=== PATIENT | female | born 1955 ===

== ENCOUNTER 2024-12-20 09:17 | Outpatient (AMB) | payer MEDICARE, BC, SELFPAY ==
--- NOTE | 2024-12-20 09:20 | A.OFFVIS_ITS ---
Vital Signs 12/20/24 09:27 Height 5 ft 1 in Weight 156 lb 1.396 oz BMI 29.5 BP 134/74 Blood Pressure Location Rt radial Position Sitting Pulse 103 H Pulse Source Pulse Oximeter Intake Visit Reasons: T2DM Intake Note: New patient externally referred by PCP for T2DM management. Patient receives Dexcom G6 supplies through: [facility] Last Diabetic Eye exam: Within the year, Is seen yearly Last Podiatry Visit: Does not see a Podiatry Random Glucose: 257 mg/dl HgA1C: 10.4% 12/20/2024 Filter Pulp Washer Required: No Accompanied by: Self / Same As Patient Allergies levofloxacin (From Levaquin) Allergy (Unknown, Verified 12/20/24 09:32) Hives Penicillins Allergy (Unknown, Verified 12/20/24 09:32) Hives sulfamethoxazole (From Bactrim) Allergy (Unknown, Verified 12/20/24 09:32) Hives trimethoprim (From Bactrim) Allergy (Unknown, Verified 12/20/24 09:32) Hives vancomycin Allergy (Unknown, Verified 12/20/24 09:32) Hives aspirin Adverse Reaction (Unknown, Verified 12/20/24 09:32) Upset GI Medication List - Last Reconciled 12/20/24 by Nas Vance MD albuterol sulfate 90 mcg/actuation 2 puffs inhalation Q4H PRN amlodipine 5 mg PO DAILY atorvastatin 20 mg PO DAILY blood sugar diagnostic (Contour Next Test Strips) As directed blood-glucose sensor (Dexcom G6 Sensor device) As directed blood-glucose transmitter (Dexcom G6 Transmitter device) As directed esomeprazole magnesium 20 mg PO QAM insulin glargine (Lantus Solostar U-100 Insulin) 50 units subcut BEDTIME metformin ER 1,500 mg PO QAM metoprolol succinate ER 25 mg PO DAILY pen needle, diabetic (Holly 2nd Gen Pen Needle) As directed tirzepatide (Mounjaro) 5 mg subcut QWEEK valsartan 80 mg PO DAILY HPI Comments Details: 69 YO F who is seen in consultation for T2DM at the request of PCP. Initially diagnosed with T2DM in 2013 . Never saw endo before Was initially started on treatment with metformin . Current regimen Lantus 50 units . Metformin 1000 mg QD, Mounjaro 5 mg Qwkly recently started Per the Dexcom CGMS is active 95 % of time . data the patient's predicted A1C is 11% which is compared to the patients previous A1C [] dated []. Avg glucose is 320 . Variability of 50 The patient's blood sugars were in target 0% of the time, above target 100% of the time, and below target 0% of the time Pen shows persistent hyperglycemia throughout the day with increases post- breakfast Reports low sugars never. No Family history of T2DM but family hx unknown Has eyes checked yearly, last eye exam 10/2024 , denies retinopathy. Has neuropathy, not sees podiatry. Denies nephropathy, on EVI/ARB. . Has HLD, on statin. . Denies CAD. Not Had diabetes education. COUNT INCLUDES THE [facility] Medical History (Updated 12/20/24 @ 09:34 by Nas Vance MD) Type 2 diabetes mellitus Surgical History History of colonoscopy History of surgery Hx of bilateral mastectomy History of bilateral tubal ligation Family History Mother Heart disease Father No problems noted. Sister Cancer Social History Alcohol intake: never Patient Tobacco Use Status: Never used Tobacco Physical Exam Vital Signs: Last Vital Signs Pulse 103 H 12/20/24 09:27 BP 134/74 12/20/24 09:27 BMI result Body Mass Index 29.5 Absence of Cushingoid features. Absence of acromegalic features. Neck exam reveals nl size thyroid about 15 gms. No thyroid nodules palpable. No carotid bruits present. Lungs CTA. Heart S1 S2, Reg R/R. No M/R/ G. Skin exam reveals absence of vitiligo or acanthosis nigricans. Abdominal exam reveals Soft NT/ND with NA BS. No organomegaly present. Neck Other: . Extrem Other: Visual exam of foot performed. No ulcerations or open lesions. No onchomycosis, no callouses.Pulses 2 + distally Sensation intact to monofilament exam. Vibratory sensation sensed is intact with 128 Hz tuning fork Results AMB Hemoglobin A1c AMB Hemoglobin A1c 10.4 % Last Edit by CARLIE Simmons on 12/20/24 09:53 Results Reviewed Results Reviewed: Laboratory Last Values Glucose (Clinic) 257 mg/dL (60-115) H 12/20/24 09:42 Assessment & Plan Assessment & Plan (1) Type 2 diabetes mellitus: Code(s): E11.9 - Type 2 diabetes mellitus without complications Category: Medical Plan: 69-year-old female with a history of type 2 diabetes being treated metformin, Mounjaro and basal insulin with poor glycemic control and no known microvascular or macrovascular complication. The plan is to have the pt change Lantus to Toujeo U-300 60 units and increase Mounjaro to 7.5 mg Qwkly . Went over side effects of Mounjaro including but not limited to nausea, vomiting and rare risk of pancreatitis . We will have patient see health educator and chief controller. May need U-500 insulin in future We will check microalbumin to creatinine ratio. Went over with the patient correlation of poor glycemic control to development and progression of complications. Will also check anti-PERLA 65 Ab. Encourage patient to make appointment with Podiatry (her primary care referred her there) Orders: Orders Glutamic acid decarboxylase Ab Today E11.9 - Type 2 diabetes mellitus without complications AMB Hemoglobin A1c Today E11.9 - Type 2 diabetes mellitus without complications Microalbumin, Random (w Creat) Today E11.9 - Type 2 diabetes mellitus without complications Referrals Diabetes Education Referral E11.9 - Type 2 diabetes mellitus without complications Nutrition/Dietitian Referral E11.9 - Type 2 diabetes mellitus without complications Medications: New tirzepatide (Mounjaro) 7.5 mg (0.5 mL) subcut QWEEK 2 mL 4RF insulin glargine U-300 conc (Toujeo Max U-300 SoloStar) 60 units (0.2 mL) subcut DAILY 6 mL 4RF Coding Level of Care Code New Pt Level 5 (02067) Complex EM visit Add On G2211 Diagnoses Type 2 diabetes mellitus E11.9
[2024-12-20 09:27] VITALS: BP 134/74; PULSE 103; BMI 29.5
--- OUTSIDE RECORDS SUMMARY | 2024-12-20 09:45 | XMS_ITS | Continuity of Care Document ---
Author Organization [facility] Address [address] [facility] [address] [place] [address] Phone [phone] Social History Type Date Description Comments Sex Female Sex Unknown Medical Devices Description No Information Available Encounters Description No Information Available Assessments Description No Information Available Plan of Treatment No Information Available Functional Status Description No Information Available Mental Status Description No Information Available Referrals Description No Information Available
--- OUTSIDE RECORDS SUMMARY | 2024-12-20 09:45 | XMS_ITS ---
Author Name [facility] Organization Unknown Encounters Encounter Type Encounter Reason Primary Diagnosis Location Date Ambulatory [facility] 03/06/2024 Care Team Organization Name Specialty Phone Email Start Date End Da te [facility]2023 [facility] Melissa Galarza Primary Care 11/11/2022 12/26/2023 [facility] Termed, PROVIDER Primary Care 07/14/202212/07 [facility] Termed, PROVIDER Primary Care 03/16/2022
--- OUTSIDE RECORDS SUMMARY | 2024-12-20 09:45 | XMS_ITS | Clinical Summary ---
[facility] Organization [facility] Address [address] [place] [address] Care Team Providers Care Register Of Deeds Name Role Phone Marina Jesus MD Primary Care Provider [phone] Allergies Active Allergy Reactions Criticality Noted Date Comments Aspirin 11/17/2018 Levofloxacin 03/28/2017 Penicillins 03/28/2017 Procaine 11/17/2018 Vancomycin 03/28/2017 Medications Medication Sig Dispensed Refills Start Date End Date Status metFORMIN (GLUCOPHAGE) tablet 500 mg Take 500 mg by mouth 2 (two) times a day with meals. 2,000 mg daily 0 Active esomeprazole (NEXIUM) capsule 20 mg Take 20 mg by mouth every morning before breakfast. 0 Active metoprolol succinate (TOPROL-XL) 24 hr tablet 25 mg Take by mouth daily. 0 Ac tive enalapril (VASOTEC) 10 MG tablet Take 10 mg by mouth daily. 0 Active amLODIPine (NORVASC) tablet 5 mg Take 5 mg by mouth daily. 0 Active atorvastatin (LIPITOR) tablet 10 mg Take 10 mg by mouth every evening. 0 Active albuterol (PROVENTIL) (2.5 MG/3ML) 0.083% nebulizer solution Take 2.5 mg by nebulization every 6 (six) hours as needed for wheezing. 0 Active Dulaglutide (TRULICITY) 0.75 MG/0.5ML SOPN Inject 75 Units under the skin once a week. 0 Active insulin glargine (LANTUS) injection 100 units/mL Inject 45 Units under the skin every night at bedtime. 0 Active Active Problems Problem Noted Date Diagnosed Date Malignant neoplasm of overla pping sites of right breast in female, estrogen receptor positive 03/28/2017 Social History Tobacco Use Types Packs/Day Years Used Date Smoking Tobacco: Former Smokeless Tobacco: Never Alcohol Use Standard Drinks/Week Comments No 0 (1 standard drink = 0.6 oz pur e alcohol) Sex and Gender Information Value Date Recorded Sex Assigned at Not on file Gender Identity Not on file Sexual Orientation Not on file Job Start Date Occupation Industry Not on file Not on file Not on file Last Filed Vital Signs Vital Sign Reading Time Taken Comments Blood Pressure 135/68 11/30/2021 10:14 AM EDT Pulse 92 11/30/2021 10:14 AM EDT Temperature 36.3 C (97.3 F) 11/30/2021 10:14 AM EDT Respiratory Rate - - Oxygen Saturation 99% 11/30/2021 10:14 AM EDT Inhaled Oxygen Concentration - - Weight 69.9 kg (154 lb) 11/30/2021 10:14 AM EDT Height 154.9 cm (5' 1 ) 11/30/2021 10:14 AM EDT Body Mass Index 29.1 11/30/2021 10:14 AM EDT Plan of Treatment Health Maintenance Due Date Last Done Comments Hepatitis C Screening 1955 Depression Screening 1966 Preventative Health Evaluation 1972 Shingrix-Zoster Vaccine (1 o f 2) 1973 Colon Cancer Screening (Colonoscopy) 09/08/1999 Breast Cancer Screening (Mammogram) 2004 Pneumococcal Vaccine (2 of 2 - PCV) 10/17/2014 10/17/2013 DTap / Tdap / Td (2 - Td or Tdap) 08/15/2017 08/16/2007 Fall Risk Assessment 09/08/2019 Osteoporosis Screening (DEXA Scan) 09/08/2019 COVID-19 Vaccine (4 - 2023-2 5 season) 2024 03/29/2021, 09/03/2020, 08/13/2020 Influenza Vaccine (#1) 2025 RSV Adult > 60+ Yrs or (1 - 1-dose 75+ series) 2029 Hepatitis B Vaccines Aged Out No long er eligible based on patient's age to complete this topic RSV Ped < 20 months Aged Out No longe r eligible based on patient's age to complete this topic Care Teams Register Of Deeds Relationship Specialty Start Date End Date Marina Jesus MD PCP - General Internal Medicine 03/28/17
--- OUTSIDE RECORDS SUMMARY | 2024-12-20 09:45 | XMS_ITS | Patient Health Record ---
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 Name Role Phone Lyric Woodson Unavailable [phone] BARBARA BOWMAN Unavailable [phone] MARQUISE GODOY Unavailable [phone] Allergies Allergen (clinical drug ingredient) Drug/Non Drug Allergy documented on EMR Reaction Allergy Type Onset Date Status sulfamethoxazole / trimethoprim Bactrim Unknown Drug Allergy Active Levaquin Unknown Drug Allergy Active aspirin Aspirin Unknown Drug Allergy Active Penicillin Unknown Drug Allergy Active vancomycin Vancomycin Unknown Drug Allergy Activ e Results Component Value Reference Range Notes MAGNESIUM Reviewed date:12/23/2023 10:02:03 AM Interpretation: Performing Lab: Notes/Report: Note Original Ordering Provider: LYRIC VALDIVIA[employer], [place] [address] Signal Circuit Designer - Fatuma Treadwell MD MAGNESIUM 1.9 1.9-2.6 mg/dL Note Original Ordering Provider: LYRIC WOODSON PA-C [employer], a member of [address] [address] Signal Circuit Designer - Fatuma Treadwell MD TISSUE EXAM Reviewed date:07/27/2024 11:12:39 AM Interpretation: Performing Lab: Notes/Report: Final Diagnosis A. Large Intestine, Right/Ascending Colon, polyp x1: - Tubular adenoma. B. Large Intestine, Transverse Colon, polyp x1: - Tubular adenoma. Gross Description A. Large Intestine, Right/Ascending Colon, polyp x1: Labeled ascend colon polyp x 1 . Received in formalin, are six irregular soft to rubbery, cruz-pink to red tissue fragments, approximately ranging from 0.2 cm to 0.8 cm in greatest diameters, admixed in fecal/food debris, which are wrapped in paper and submitted in toto in one cassette, six pieces, multiple levels. B. Large Intestine, Transverse Colon, polyp x1: Labeled trans colon polyp x 1 . Received in formalin, are five irregular soft to rubbery, cruz-pink tissue fragments, approximately ranging from 0.4 cm to 1.0 cm in greatest diameters, admixed in fecal/food debris, which are wrapped in paper and submitted in toto in one cassette, five pieces, multiple levels. dvb/DG Disclaimer Unless otherwise specified, all tissue is 10% NB formalin fixed and paraffin embedded. MICROALBUMIN CREATININE URIN E RATIO Reviewed date:09/24/2024 12:12:15 PM Interpretation: Performing Lab: Notes/Report: Creatinine, Urine 234.0 Microalb, Ur 69.1 0.0-29.0 mg/L Microalb/Creat Ratio 30 <30 mg/g creat COMPREHENSIVE METABOLIC PANE L Reviewed date:09/24/2024 12:16:08 PM Interpretation: Performing Lab: Notes/Report: Sodium 136 133-145 mmol/L Potassium 4.4 3.5-5.5 mmol/L Chloride 105 96-110 mmol/L CO2 24 21-32 mmol/L Anion Gap 7 3-11 Glucose 208 70-100 mg/dL BUN 9 5-25 mg/dL Creatinine 0.88 0.50-1.10 mg/dL eGFR 71 >=60 mL/min/1.73m2 Calculati on based on the Chronic Kidney Disease Epidemiology Collaboration (CKD-EPI) equation refit without adjustment for race. BUN/Creatinine Ratio 10.2 Calcium 9.9 8.5-10.5 mg/dL AST (SGOT) 24 10-42 unit/L ALT (SGPT) 39 10-60 unit/L Alkaline Phosphatase 113 42-121 unit/L Total Protein 7.1 6.0-8.0 g/dL Albumin 3.8 3.2-5.0 g/dL Total Bilirubin 1.0 0.0-1.4 mg/dL MAGNESIUM Reviewed date:09/24/2024 12:16:24 PM Interpretation: Performing Lab: Notes/Report: Magnesium 1.8 1.9-2.6 mg/dL THYROID STIMULATING HORMONE Reviewed date:09/24/2024 12:11:23 PM Interpretation: Performing Lab: Notes/Report: TSH 1.94 0.40-4.00 mcIU/mL LIPID PANEL WITH REFLEX TO D IRECT LDL Reviewed date:09/24/2024 12:12:36 PM Interpretation: Performing Lab: Notes/Report: Cholesterol 131 0-200 mg/dL Triglycerides 181 0-150 mg/dL HDL 46 >=40 mg/dL LDL Calculated 49 0-100 mg/dL VLDL Cholesterol Pan 36.2 Non HDL Chol. (LDL+VLDL) 85 <145 mg/dL Chol/HDL Ratio 2.8 0.0-4.4 CBC WITH AUTO DIFFERENTIAL Reviewed date:09/24/2024 12:14:21 PM Interpretation: Performing Lab: Notes/Report: WBC 7.3 4.8-10.8 K/mcL RBC 5.20 3.80-4.80 M/mcL Hemoglobin 12.1 11.5-16.0 g/dL Hematocrit 39.6 35.0-47.0 % MCV 76.6 79.0-98.0 FL MCH 23.4 27.0-32.0 pcg MCHC 30.6 32.0-37.0 g/dL RDW 16.7 11.0-15.0 % Platelets 295 130-400 K/mcL MPV 9.9 7.0-11.0 FL NRBC 0.0 <1.0 % NRBC Absolute 0.00 <0.10 K/mcL Neutrophils Relative 58.8 Lymphocytes Relative 33.9 Monocytes Relative 5.7 Eosinophils Relative 0.7 Basophils Relative 0.5 Immature Granulocytes Relative 0.4 Neutrophils Absolute 4.29 1.50-7.00 K/mcL Lymphocytes Absolute 2.48 1.00-5.00 K/mcL Monocytes Absolute 0.42 0.20-1.00 K/mcL Eosinophils Absolute 0.05 0.00-0.50 K/mcL Basophils Absolute 0.04 0.00-0.20 K/mcL Immature Granulocytes Absolute 0.03 0.00-0.03 K/mcL HEMOGLOBIN A1C Reviewed date:09/24/2024 12:15:36 PM Interpretation: Performing Lab: Notes/Report: Hemoglobin A1C 10.2 <6.5 % Mean Bld Glu Estim. 246 Reason For Referral Reason [facility]; [facility] ontrolled diabetes Diagnosis 1 Uncontrolled type 2 diabetes mellitus with hyperglycemia (E11.65) Referral Organization [facility] [address] Referring Provider First Name Lyric Referring Provider Last Name Svrcek Referring Provider Speciality Internal edicine Referred Provider Specialty Podiatry General Notes [address] [facility] [address] [place], (p) [phone], (f) [phone] Clinical Notes Marlys Mcfarlane 02:46:33 PM > referral faxed with attachments Referral Priority Routine Reason [facility]; uncontr olled diabetes Diagnosis 1 Uncontrolled type 2 diabetes mellitus with hyperglycemia (E11.65) Referral Organization [facility] [address] Referring Provider First Name Lyric [facility] Referred Provider Specialty Nutrition General Notes (p) [phone], (f ) [phone] Clinical Notes Laverne Hamlin 10/08 10:14:51 AM >, insurance out of network will refer to alternative place Referral Priority Routine Reason uncontrolled diabete s Diagnosis 1 Type 2 diabetes clint itus with unspecified complications (E11.8) Referral Organization [facility] [address] Referring Provider First Name Lyric Referring Provider Last Name Svrcek Ref[facility] Referred Provider Specialty Unknown General Notes [facility], [address] [place] [address], [address], [place] [address], phone- [phone], fax- [phone] Clinical Notes Laverne Hamlin 10/08 10:31:45 AM >, referral faxed, Ryne Gonzalez 10/12/2024 02:53:48 PM > refaxed to [phone] Redena 10/23/2024 03:40:30 PM > Scheduled for 11/08 at [address] Vance. Pt aware Referral Priority Routine Medications Medication SIG (Take, Route, Frequency, Duration) Notes Start Date End Date Status Mounjaro 5 MG/0.5ML 0.5 ML Subcutaneous once weekly; Duration: 30 days replaces ozepmic Active Multi Complete - as directed Orally Active Valsartan 80 MG TAKE 1 TABLET BY EVERY DAY FOR 30 DAYS; Duration: 90 days Active metFORMIN HCl ER 500 MG TAKE 3 TABLETS B Y MOUTH EVERY DAY WITH BREAKFAST 90; Duration: 90 Active Clotrimazole-Betamethason e 1-0.05 % APPLY DAILY TO SKIN TO AFFECTED AREA TWICE A DAY FOR 7 DAYS; Duration: 30 Active amLODIPine Besylate 5 MG TAKE 1 TABLET B Y MOUTH EVERY DAY; Duration: 90 Active Metoprolol Succinate ER 25 MG TAKE 1 TABLET BY MOUTH EVERY DAY FOR 30 DAYS; Duration: 90 Active Dexcom G6 Transmitter - as directed; Dur ation: 90 days 03/22/2024 Active Esomeprazole Magnesium 20 MG 1 capsule 1/2 to 1 hour before morning meal Orally Once a day; Duration: 90 days 03/22/2024 Active BD Pen Needle Holly 2nd Gen 32G X 4 MM USE TO INJECT INSULIN AT BEDTIME; Duration: 90 Active Albuterol Sulfate HFA 108 (90 Base) MCG/ACT 2 puffs Inhalation every 4 hrs; Duration: 30 days As needed PRN Active Atorvastatin Calcium 20 MG TAKE 1 TABLET BY MOUTH EVERY DAY FOR 30 DAYS; Duration: 90 days Active Lantus SoloStar 100 UNIT/ML 50 UNITS SUBCUTANEOUS BEDTIME 90 DAYS Subcutaneous once a day; Duration: 90 days Active Lancets - use 3 times a day; Duration: 90 days 09/22/2023 Active Contour Next Test - TEST FASTING BLOOD S UGAR 1 TIME DAILY; Duration: 90 Active Nystatin 048598 UNIT/GM 1 application Ex ternally Twice a day; Duration: 30 days PRN 06/30/2023 Active Dexcom G6 Sensor - one sensor every 10 days subcutaneously for DX E11.8; Duration: 90 days 05/18/2023 Active Problems Problem Type SNOMED Code ICD Code Onset Dates Problem Status W/U Status Risk Notes Problem Disorder due to type 2 diabetes mellitus (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) Type 2 diabetes mellitus with unspecified complications (E11.8) Active confirmed Problem Iron deficiency (55696223) Iron deficiency (E61.1) Active confirmed Problem Hyperlipidemia (47919083) Hyperlipidemia, unspecified (E78.5) Active confirmed Problem Hypomagnesemia (575975743) Hypomagnesemia (E83.42) Active confirmed Problem Essential hypertension (36114820) Essential (primary) hypertension (I10) Active confirmed Problem Postoperative hypertension (0099682189008) Postprocedural hypertension (I97.3) Active confirmed Problem Diarrhea (27016077) Diarrhea, unspecified (R19.7) Active confirmed Problem Adult health examination (173423635) Encounter for general adult medical examination without abnormal findings (Z00.00) Active confirmed Problem Hyperlipidaemia (30673018) Hyperlipidemia, unspecified hyperlipidemia type (E78.5) Active confirmed Problem Gastroesophageal reflux disease without esophagitis (405197716) Gastroesophageal reflux disease without esophagitis (K21.9) Active confirmed Problem Type II diabetes mellitus without complication (507214581) Type 2 diabetes mellitus without complication, without long-term current use of insulin (E11.9) Active confirmed Problem Obesity (477283447) Obesity (BMI 35.0-39.9 without comorbidity) (E66.9) Active confirmed Problem Gastroesophageal reflux disease with esophagitis (disorder) (037930036) Gastroesophageal reflux disease with esophagitis without hemorrhage (K21.00) Active confirmed Problem Abdominal pain (81919258) Abdominal pain of unknown etiology (R10.9) Active confirmed Problem Hyperglycemia due to type 2 diabetes mellitus (605266774451929) Uncontrolled type 2 diabetes mellitus with hyperglycemia (E11.65) Active confirmed Problem Hyperlipidemia (23691482) Hyperlipidemia, mild (E78.5) Active confirmed Problem Endocrine/metabolic screening (155672721) Screening for endocrine disorder (Z13.29) Active confirmed Problem Type II diabetes mellitus without complication (027149561) Type 2 diabetes mellitus with hemoglobin A1c goal of 7.0%-8.0% (E11.9) Active confirmed Problem Elevated fasting lipid profile (194290546582) Elevated lipids (E78.5) Active confirmed Problem Diabetes mellitus type 2 in nonobese (625052014) Diabetes mellitus type 2 in nonobese (E11.9) Active confirmed Problem Cramp in lower limb (943129840) Leg cramp (R25.2) Active confirmed Vital Signs Heart Rate 81 /min 11/20/2024 Oximetry 98 % 11/20/2024 Blood pressure diastolic 78 mm Hg 11/20/2024 Height 61 in 11/20/2024 Blood pressure systolic 138 mm Hg 11/20/2024 Weight 156.3 lbs 11/20/2024 BMI 29.53 kg/m2 11/20/2024 Encounters Encounter Location Date Provider Diagnosis [facility] [address] [place] [id number] 02/21/2024 Lyric Svrcek Type 2 diabetes clint itus with unspecified complications E11.8 ; Essential (primary) hypertension I10 and Chronic diarrhea K52.9 [facility] [address] 03/22/2024 Lyric Svrcek Type 2 diabetes clint itus with unspecified complications E11.8 ; Essential (primary) hypertension I10 ; Chronic diarrhea K52.9 and Gastroesophageal reflux disease without esophagitis K21.9 [facility] [address] [facility] [address] [place], [place] 05/07/2024 MARQUISE GODOY Acute cough R05.1 ; Essential (primary) hypertension I10 ; Type 2 diabetes mellitus with unspecified complications E11.8 ; Hyperlipidemia, unspecified hyperlipidemia type E78.5 ; Gastroesophageal reflux disease with esophagitis without hemorrhage K21.00 and Iron deficiency E61.1 [facility] [address] 05/23/2024 Lyric Svrcek Respiratory syncytia l virus (RSV) as cause of acute bronchitis J20.5 ; Pneumonia due to infectious organism, unspecified laterality, unspecified part of lung J18.9 ; Type 2 diabetes mellitus with unspecified complications E11.8 ; Skin rash R21 and Essential (primary) hypertension I10 [facility] [address] 07/31/2024 Lyric Svrcek Type 2 diabetes clint itus with unspecified complications E11.8 ; Essential (primary) hypertension I10 ; Hyperlipidemia, unspecified hyperlipidemia type E78.5 and Muscle cramps R25.2 [facility] [address] 10/02/2024 Lyric Svrcek Type 2 diabetes clint itus with unspecified complications E11.8 ; Essential (primary) hypertension I10 ; Hyperlipidemia, unspecified hyperlipidemia type E78.5 and Muscle cramps R25.[address] [facility] [address] 11/07/2024 Lyric Svrcek Cough R05.9 ; Acute bronchitis, unspecified organism J20.9 and Essential (primary) hypertension I10 [facility] [address] 11/20/2024 Lyric Svrcek Type 2 diabetes clint itus with unspecified complications E11.8 ; Essential (primary) hypertension I10 ; Hyperlipidemia, unspecified hyperlipidemia type E78.5 and Subacute cough R05.[address] [facility] [address] [place] [address] 04/12/2024 Lyric Svrcek [facility] [address] [place], [place] 05/07/2024 TALAL BOWMAN [facility] [address] [place], [place] 06/04/2024 Lyric Svrcek [facility] [address] [place], [place] 06/04/2024 Lyric Svrcek [facility] [address] [place] [address] 07/19/2024 TALAL BOWMAN [facility] [address] [place], [place] 07/31/2024 TALAL BOWMAN Screening for endocr ine disorder Z13.29 ; Elevated lipids E78.5 ; Diabetes mellitus type 2 in nonobese E11.9 and Leg cramp R25.[address] [facility] [address] [place] [address] 09/04/2024 Lyric Svrcek [facility] [address] [facility] [address] [place], [place] 10/02/2024 Lyric Svrcek [facility] [address] [place] [address] 10/08/2024 Lyric Svrcek [facility] [address] [place], [place] 11/07/2024 Lyric Svrcek [facility] [address] 11/07/2024 Lyric Svrcek Assessments Encounter Date Diagnosis (ICD Code) Assessment Notes Treatment Notes Treatment Clinical Notes Section Notes 02/21/2024 Type 2 diabetes mellitus with unspecified complications (ICD-10 - E11.8) #Type 2 diabetes. Not well controlled. A1C 9.6. She has been on Ozempic, but never increased her dose after last visit as discussed. Will increase to 0.5 mg- reviewed pen dosing instruction. F/u 3-4 weeks. PLan to increase to 1 mg at that time. Discussed dietary modifications and need for regular exercise. #Hypertension. Well controlled on current regimen. #Chronic Diarrhea. Ongoing issue. Saw GI in November. Awaiting colonoscopy- advised to call today to follow up on this. Case discussed with collaborating physician Robert Bowman who reviewed the assessment and plan. Chart, medications, labs, vital signs reviewed. Dictation was accomplished with the use of [employer] voice recognition software, prone to medical misidentifications and grammatical errors. This is unintentional and the practitioner does try to identify and correct these, but some could still be present. Please do not hesitate to contact practitioner for clarification. All questions answered to patients satisfaction. Patient verbalized understanding of diagnosis and treatments explained. To call sooner prior to next visit it any questions/concerns arise. 02/21/2024 Essential (primary) hypertension (ICD-10 - I10) #Type 2 diabetes. Not well controlled. A1C 9.6. She has been on Ozempic, but never increased her dose after last visit as discussed. Will increase to 0.5 mg- reviewed pen dosing instruction. F/u 3-4 weeks. PLan to increase to 1 mg at that time. Discussed dietary modifications and need for regular exercise. #Hypertension. Well controlled on current regimen. #Chronic Diarrhea. Ongoing issue. Saw GI in November. Awaiting colonoscopy- advised to call today to follow up on this. Case discussed with collaborating physician Robert Bowman who reviewed the assessment and plan. Chart, medications, labs, vital signs reviewed. Dictation was accomplished with the use of [employer] voice recognition software, prone to medical misidentifications and grammatical errors. This is unintentional and the practitioner does try to identify and correct these, but some could still be present. Please do not hesitate to contact practitioner for clarification. All questions answered to patients satisfaction. Patient verbalized understanding of diagnosis and treatments explained. To call sooner prior to next visit it any questions/concerns arise. 03/22/2024 Type 2 diabetes mellitus with unspecified complications (ICD-10 - E11.8) #Type 2 diabetes. Not well controlled. A1C 9.4, down from 9.6 She has been on Ozempic 0.5 mg since last visit, will increase to 1 mg. New Rx sent. COntinue to work on healthy diet and regular exercise. F/u 2 months with repeat A1C. #Hypertension. Well controlled on current regimen. #Chronic Diarrhea. Ongoing issue. Saw GI in November. Colonoscopy scheduled in July. #GERD- refilled esomeprazole. Case discussed with collaborating physician Robert Bowman who reviewed the assessment and plan. Chart, medications, labs, vital signs reviewed. Dictation was accomplished with the use of [employer] voice recognition software, prone to medical misidentifications and grammatical errors. This is unintentional and the practitioner does try to identify and correct these, but some could still be present. Please do not hesitate to contact practitioner for clarification. All questions answered to patients satisfaction. Patient verbalized understanding of diagnosis and treatments explained. To call sooner prior to next visit it any questions/concerns arise. 03/22/2024 Essential (primary) hypertension (ICD-10 - I10) #Type 2 diabetes. Not well controlled. A1C 9.4, down from 9.6 She has been on Ozempic 0.5 mg since last visit, will increase to 1 mg. New Rx sent. COntinue to work on healthy diet and regular exercise. F/u 2 months with repeat A1C. #Hypertension. Well controlled on current regimen. #Chronic Diarrhea. Ongoing issue. Saw GI in November. Colonoscopy scheduled in July. #GERD- refilled esomeprazole. Case discussed with collaborating physician Robert Bowman who reviewed the assessment and plan. Chart, medications, labs, vital signs reviewed. Dictation was accomplished with the use of [employer] voice recognition software, prone to medical misidentifications and grammatical errors. This is unintentional and the practitioner does try to identify and correct these, but some could still be present. Please do not hesitate to contact practitioner for clarification. All questions answered to patients satisfaction. Patient verbalized understanding of diagnosis and treatments explained. To call sooner prior to next visit it any questions/concerns arise. 05/07/2024 Essential (primary) hypertension (ICD-10 - I10) Alexandria is a 68-year-old female with history of type 2 diabetes, hyperlipidemia, hypertension, and obesity who presents to the office today for urgent care visit for upper respiratory symptoms beginning on Tuesday including sore throat, hoarse voice, fever, and productive cough. Has been using equj-qsj-vvkyrbi Robitussin and Mucinex with some relief. Reports fever on Tuesday of 100 degrees, then 99.4 degree(s) F, well-controlled with [id number] Tylenol. Has been able to tolerate p.o. intake. Several sick contacts including her and 2 grandchildren. On physical exam patient is well-appearing and in no acute distress. Blood pressure 132/78, heart rate tachycardic 118, oxygen saturation 99% on room air. Lungs are clear to auscultation bilaterally without stridor, rales, rhonchi, or wheezing. Regular rate and rhythm appreciated with normal S1 and S2 without murmurs, rubs, or gallops. 2+ and equal radial pulses bilaterally. There is + lymphadenopathy appreciated of the bilateral submandibular lymph nodes. Oropharynx is not erythematous and nonedematous. Given clinical presentation likely suspect viral syndrome. Less likely to be bacterial given symptom duration. Can consider antibiotics if symptoms persist and do not improve. Viral swab obtained in office and is negative for COVID, negative for flu, positive for RSV. Patient made aware of these results. At this time we will treat symptomatically with guaifenesin extended release 600 mg to be taken every 12 hours as needed for cough. Advised this medication is extra strength compared to skyi-ogw-jbrnpyl guaifenesin in Mucinex. Also discussed supportive measures for further management including adequate rest, increasing hydration, and ensuring good nutrition. Patient understanding. Discussed red flag signs requiring emergency department valuation including intractable fever, chest pain, difficulty breathing, intractable vomiting or diarrhea, inability to tolerate p.o. intake, dizziness, or weakness. Patient demonstrates understanding. All patient questions answered at this time. # Hypertension: Blood pressure stable today 132/78. Continue amlodipine 5 mg once daily. Continue valsartan 80 mg once daily. Continue metoprolol succinate 25 mg once daily. Will continue to monitor. # Type 2 diabetes: Poor control. Per chart review hemoglobin A1c 9.4%, down from 9.6%. Continue Ozempic 1 mg once weekly subcutaneous injection. Continue metformin 500 mg 3 tablets once daily in the morning with food. Continue Lantus 50 units subcutaneous injection once daily at nighttime. Discussed importance of diet and lifestyle to lower hemoglobin A1c and prevent other comorbidities. Patient has follow-up scheduled 05/23/2024. # GERD: Continue esomeprazole 20 mg once daily 30 to 60 minutes for morning meal. Will continue to monitor. # Microcytic anemia: Last CBC obtained 11/22/2023 with significant values including RBC 5.2, MCV 74.9, MCH 23.2, MCHC 31.0, and RDW 17.1. Continue iron 27 mg 3 times weekly. Will continue to monitor with repeat blood work. # Hyperlipidemia: Continue atorvastatin 20 mg once daily. Will continue to monitor. All questions have been answered to patient's satisfaction. Patient verbalized understanding of diagnosis and treatments explained. Advised to call sooner prior to next visit it any questions/concerns arise. Case discussed with collaborating physician Augusto Bowman who reviewed the assessment and plan. Chart, medications, labs, vital signs reviewed. Dictation was accomplished with the use of [employer] voice recognition software, which is prone to medical misidentifications and grammatical errors. This are unintentional and the practitioner does try to identify and correct these, but some could still be present. Please do not hesitate to contact practitioner for clarification. 05/23/2024 Pneumonia due to infectious organism, unspecified laterality, unspecified part of lung (ICD-10 - J18.9) #Pneumonia. Rhonchi to left lower lobe on exam. Concern for early pneumonia with persistent symptoms after recent diagnosis of RSV. Will treat with azithromycin. Renewed albuterol inhaler to use as needed push fluids and rest. Discussed signs and symptoms to monitor for if no improvement in 1 week would suggest imaging. She does have multiple medication allergies. #RSV. She was here 2 weeks ago and tested positive for RSV. Symptoms are persisting. #Type 2 diabetes. A1c 9.6 in the office today. Not well-controlled. Will increase Ozempic from 1 mg to 2 mg. Advised to monitor blood sugars closely. Work on healthy diet and regular exercise when she is feeling better. Follow-up in 2 months with repeat A1c. #Rash. Small dry excoriated patch to top of gluteal fold. Will trial combo clotrimazole betamethasone sparingly for 1 week. Follow-up if no improvement or with any new or worsening symptoms. #Hypertension. Well controlled on current regimen. Case discussed with collaborating physician Robert Bowman who reviewed the assessment and plan. Chart, medications, labs, vital signs reviewed. Dictation was accomplished with the use of [employer] voice recognition software, prone to medical misidentifications and grammatical errors. This is unintentional and the practitioner does try to identify and correct these, but some could still be present. Please do not hesitate to contact practitioner for clarification. All questions answered to patients satisfaction. Patient verbalized understanding of diagnosis and treatments explained. To call sooner prior to next visit it any questions/concerns arise. 05/23/2024 Respiratory syncytial virus (RSV) as cause of acute bronchitis (ICD-10 - J20.5) #Pneumonia. Rhonchi to left lower lobe on exam. Concern for early pneumonia with persistent symptoms after recent diagnosis of RSV. Will treat with azithromycin. Renewed albuterol inhaler to use as needed push fluids and rest. Discussed signs and symptoms to monitor for if no improvement in 1 week would suggest imaging. She does have multiple medication allergies. #RSV. She was here 2 weeks ago and tested positive for RSV. Symptoms are persisting. #Type 2 diabetes. A1c 9.6 in the office today. Not well-controlled. Will increase Ozempic from 1 mg to 2 mg. Advised to monitor blood sugars closely. Work on healthy diet and regular exercise when she is feeling better. Follow-up in 2 months with repeat A1c. #Rash. Small dry excoriated patch to top of gluteal fold. Will trial combo clotrimazole betamethasone sparingly for 1 week. Follow-up if no improvement or with any new or worsening symptoms. #Hypertension. Well controlled on current regimen. Case discussed with collaborating physician Robert Bowman who reviewed the assessment and plan. Chart, medications, labs, vital signs reviewed. Dictation was accomplished with the use of [employer] voice recognition software, prone to medical misidentifications and grammatical errors. This is unintentional and the practitioner does try to identify and correct these, but some could still be present. Please do not hesitate to contact practitioner for clarification. All questions answered to patients satisfaction. Patient verbalized understanding of diagnosis and treatments explained. To call sooner prior to next visit it any questions/concerns arise. 07/31/2024 Type 2 diabetes mellitus with unspecified complications (ICD-10 - E11.8) #Type 2 diabetes. Poorly controlled. A1c 9.9 in the office today. She did not tolerate 3 pills of metformin due to GI side effects. Currently on 500 mg twice daily as well as Ozempic 2 mg weekly and Lantus 50 units at bedtime. Blood sugars remain in the 300s. Will transition to Mounjaro and discontinue ozempic. Discussed risk benefits adverse effects of medication in detail with patient. Demonstrated proper use of pen autoinjector. Will need to monitor blood sugar closely and cut back on insulin dosing at bedtime. Depending on tolerance and blood sugar control may also be able to decrease metformin in the future. Follow-up in 6 weeks for repeat A1c. Follow-up sooner with any concerns. #Hypertension blood pressure elevated in the office today. Reports compliance with medications. On amlodipine, valsartan and metoprolol. Consider increasing meds at follow up if BP remains elevated. Discussed importance of healthy diet and regular exercise. #Hyperlipidemia. Due for updated labs. Follow-up pending results. #Muscle cramps. Lower extremities. Discussed importance of hydration and regular stretching. Will check labs follow-up pending results. Case discussed with collaborating physician Robert Bowman who reviewed the assessment and plan. Chart, medications, labs, vital signs reviewed. Dictation was accomplished with the use of [employer] voice recognition software, prone to medical misidentifications and grammatical errors. This is unintentional and the practitioner does try to identify and correct these, but some could still be present. Please do not hesitate to contact practitioner for clarification. All questions answered to patients satisfaction. Patient verbalized understanding of diagnosis and treatments explained. To call sooner prior to next visit it any questions/concerns arise. 07/31/2024 Essential (primary) hypertension (ICD-10 - I10) #Type 2 diabetes. Poorly controlled. A1c 9.9 in the office today. She did not tolerate 3 pills of metformin due to GI side effects. Currently on 500 mg twice daily as well as Ozempic 2 mg weekly and Lantus 50 units at bedtime. Blood sugars remain in the 300s. Will transition to Mounjaro and discontinue ozempic. Discussed risk benefits adverse effects of medication in detail with patient. Demonstrated proper use of pen autoinjector. Will need to monitor blood sugar closely and cut back on insulin dosing at bedtime. Depending on tolerance and blood sugar control may also be able to decrease metformin in the future. Follow-up in 6 weeks for repeat A1c. Follow-up sooner with any concerns. #Hypertension blood pressure elevated in the office today. Reports compliance with medications. On amlodipine, valsartan and metoprolol. Consider increasing meds at follow up if BP remains elevated. Discussed importance of healthy diet and regular exercise. #Hyperlipidemia. Due for updated labs. Follow-up pending results. #Muscle cramps. Lower extremities. Discussed importance of hydration and regular stretching. Will check labs follow-up pending results. Case discussed with collaborating physician Robert Bowman who reviewed the assessment and plan. Chart, medications, labs, vital signs reviewed. Dictation was accomplished with the use of [employer] voice recognition software, prone to medical misidentifications and grammatical errors. This is unintentional and the practitioner does try to identify and correct these, but some could still be present. Please do not hesitate to contact practitioner for clarification. All questions answered to patients satisfaction. Patient verbalized understanding of diagnosis and treatments explained. To call sooner prior to next visit it any questions/concerns arise. 07/31/2024 Screening for endocrine disorder (ICD-10 - Z13.29) 10/02/2024 Type 2 diabetes mellitus with unspecified complications (ICD-10 - E11.8) #Type 2 diabetes. Poorly controlled. A1c 10.2 on recent labs. She never got the Mounjaro and stayed on Ozempic. Discussed importance of notifying hte office if she is having trouble getting her medication at the pharmacy. Will change to Mounjaro 5 mg today- to take on Tuesday (when next ozempic dose is due). Conitnue Metformin 1500 mg daily and lantus 50 units at bedtime. Monitor BG closely. Will adjust other meds once BG comes down. Discussed dietary modifications in detail. 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 Follow-up in 6 weeks for repeat A1c. Follow-up sooner with any concerns. #Hypertension. blood pressure borderline in the office today. Reports compliance with medications. On amlodipine, valsartan and metoprolol. Consider increasing meds at follow up if BP remains elevated. Discussed importance of healthy diet and regular exercise. #Hyperlipidemia. Labs reviewed with patient. Cut back on carbs and sugar in diet. #Muscle cramps. Lower extremities. Discussed importance of hydration and regular stretching. Magnesium slightly low. Start magnesium supplement at bedtime. Case discussed with collaborating physician Robert Bowman who reviewed the assessment and plan. Chart, medications, labs, vital signs reviewed. Dictation was accomplished with the use of [employer] voice recognition software, prone to medical misidentifications and grammatical errors. This is unintentional and the practitioner does try to identify and correct these, but some could still be present. Please do not hesitate to contact practitioner for clarification. All questions answered to patients satisfaction. Patient verbalized understanding of diagnosis and treatments explained. To call sooner prior to next visit it any questions/concerns arise. 10/02/2024 Essential (primary) hypertension (ICD-10 - I10) #Type 2 diabetes. Poorly controlled. A1c 10.2 on recent labs. She never got the Mounjaro and stayed on Ozempic. Discussed importance of notifying hte office if she is having trouble getting her medication at the pharmacy. Will change to Mounjaro 5 mg today- to take on Tuesday (when next ozempic dose is due). Conitnue Metformin 1500 mg daily and lantus 50 units at bedtime. Monitor BG closely. Will adjust other meds once BG comes down. Discussed dietary modifications in detail. 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 Follow-up in 6 weeks for repeat A1c. Follow-up sooner with any concerns. #Hypertension. blood pressure borderline in the office today. Reports compliance with medications. On amlodipine, valsartan and metoprolol. Consider increasing meds at follow up if BP remains elevated. Discussed importance of healthy diet and regular exercise. #Hyperlipidemia. Labs reviewed with patient. Cut back on carbs and sugar in diet. #Muscle cramps. Lower extremities. Discussed importance of hydration and regular stretching. Magnesium slightly low. Start magnesium supplement at bedtime. Case discussed with collaborating physician Robert Bowman who reviewed the assessment and plan. Chart, medications, labs, vital signs reviewed. Dictation was accomplished with the use of [employer] voice recognition software, prone to medical misidentifications and grammatical errors. This is unintentional and the practitioner does try to identify and correct these, but some could still be present. Please do not hesitate to contact practitioner for clarification. All questions answered to patients satisfaction. Patient verbalized understanding of diagnosis and treatments explained. To call sooner prior to next visit it any questions/concerns arise. 05/07/2024 Acute cough (ICD-10 - R05.1) Alexandria is a 68-year-old female with history of type 2 diabetes, hyperlipidemia, hypertension, and obesity who presents to the office today for urgent care visit for upper respiratory symptoms beginning on Tuesday including sore throat, hoarse voice, fever, and productive cough. Has been using [id number] Robitussin and Mucinex with some relief. Reports fever on Tuesday of 100 degrees, then 99.4 degree(s) F, well-controlled with [id number] Tylenol. Has been able to tolerate p.o. intake. Several sick contacts including her and 2 grandchildren. On physical exam patient is well-appearing and in no acute distress. Blood pressure 132/78, heart rate tachycardic 118, oxygen saturation 99% on room air. Lungs are clear to auscultation bilaterally without stridor, rales, rhonchi, or wheezing. Regular rate and rhythm appreciated with normal S1 and S2 without murmurs, rubs, or gallops. 2+ and equal radial pulses bilaterally. There is + lymphadenopathy appreciated of the bilateral submandibular lymph nodes. Oropharynx is not erythematous and nonedematous. Given clinical presentation likely suspect viral syndrome. Less likely to be bacterial given symptom duration. Can consider antibiotics if symptoms persist and do not improve. Viral swab obtained in office and is negative for COVID, negative for flu, positive for RSV. Patient made aware of these results. At this time we will treat symptomatically with guaifenesin extended release 600 mg to be taken every 12 hours as needed for cough. Advised this medication is extra strength compared to desy-eed-ibufdae guaifenesin in Mucinex. Also discussed supportive measures for further management including adequate rest, increasing hydration, and ensuring good nutrition. Patient understanding. Discussed red flag signs requiring emergency department valuation including intractable fever, chest pain, difficulty breathing, intractable vomiting or diarrhea, inability to tolerate p.o. intake, dizziness, or weakness. Patient demonstrates understanding. All patient questions answered at this time. # Hypertension: Blood pressure stable today 132/78. Continue amlodipine 5 mg once daily. Continue valsartan 80 mg once daily. Continue metoprolol succinate 25 mg once daily. Will continue to monitor. # Type 2 diabetes: Poor control. Per chart review hemoglobin A1c 9.4%, down from 9.6%. Continue Ozempic 1 mg once weekly subcutaneous injection. Continue metformin 500 mg 3 tablets once daily in the morning with food. Continue Lantus 50 units subcutaneous injection once daily at nighttime. Discussed importance of diet and lifestyle to lower hemoglobin A1c and prevent other comorbidities. Patient has follow-up scheduled 05/23/2024. # GERD: Continue esomeprazole 20 mg once daily 30 to 60 minutes for morning meal. Will continue to monitor. # Microcytic anemia: Last CBC obtained 11/22/2023 with significant values including RBC 5.2, MCV 74.9, MCH 23.2, MCHC 31.0, and RDW 17.1. Continue iron 27 mg 3 times weekly. Will continue to monitor with repeat blood work. # Hyperlipidemia: Continue atorvastatin 20 mg once daily. Will continue to monitor. All questions have been answered to patient's satisfaction. Patient verbalized understanding of diagnosis and treatments explained. Advised to call sooner prior to next visit it any questions/concerns arise. Case discussed with collaborating physician Augusto Bowman who reviewed the assessment and plan. Chart, medications, labs, vital signs reviewed. Dictation was accomplished with the use of [employer] voice recognition software, which is prone to medical misidentifications and grammatical errors. This are unintentional and the practitioner does try to identify and correct these, but some could still be present. Please do not hesitate to contact practitioner for clarification. 11/07/2024 Cough (ICD-10 - R05.9) #Cough/Acute bronchitis. Exposure to her daughter with respiratory illness as well. COVID flu RSV swab obtained and pending. Unfortunately results will not be available until tomorrow we will call patient with results in the morning. Discussed fluids and rest. Albuterol every 4-6 hours as needed. Advised to start Mucinex twice daily as well. Will send azithromycin to start once viral swab results given underlying medical conditions. She has multiple medication allergies. Discussed signs and symptoms to monitor for follow-up if no improvement or with any new or worsening symptoms. Case discussed with collaborating physician Robert Bowman who reviewed the assessment and plan. Chart, medications, labs, vital signs reviewed. Dictation was accomplished with the use of [employer] voice recognition software, prone to medical misidentifications and grammatical errors. This is unintentional and the practitioner does try to identify and correct these, but some could still be present. Please do not hesitate to contact practitioner for clarification. All questions answered to patients satisfaction. Patient verbalized understanding of diagnosis and treatments explained. To call sooner prior to next visit it any questions/concerns arise. 11/07/2024 Acute bronchitis, unspecified organism (ICD-10 - J20.9) #Cough/Acute bronchitis. Exposure to her daughter with respiratory illness as well. COVID flu RSV swab obtained and pending. Unfortunately results will not be available until tomorrow we will call patient with results in the morning. Discussed fluids and rest. Albuterol every 4-6 hours as needed. Advised to start Mucinex twice daily as well. Will send azithromycin to start once viral swab results given underlying medical conditions. She has multiple medication allergies. Discussed signs and symptoms to monitor for follow-up if no improvement or with any new or worsening symptoms. Case discussed with collaborating physician Robert Bowman who reviewed the assessment and plan. Chart, medications, labs, vital signs reviewed. Dictation was accomplished with the use of [employer] voice recognition software, prone to medical misidentifications and grammatical errors. This is unintentional and the practitioner does try to identify and correct these, but some could still be present. Please do not hesitate to contact practitioner for clarification. All questions answered to patients satisfaction. Patient verbalized understanding of diagnosis and treatments explained. To call sooner prior to next visit it any questions/concerns arise. 11/20/2024 Type 2 diabetes mellitus with unspecified complications (ICD-10 - E11.8) #Type 2 diabetes. Poorly controlled. A1c 10.4 in the office today. She never the increased dose of Mounjaro 5 mg. Resent today. Advised to start this week. Will continue metformin 500 mg twice daily as well as Lantus 50 units at bedtime. Advised to monitor blood glucose closely. May need to adjust insulin dosing as we titrate up Mounjaro. Of note she does have an appointment with endocrinology next month. Discussed dietary modifications. Follow-up with me in 2 months with repeat A1c. Will likely need to titrate Mounjaro further. #Hypertension. BP at goal. On amlodipine, valsartan and metoprolol. Discussed importance of healthy diet and regular exercise. #Hyperlipidemia. will order repeat labs at next f/u visit in 2 months. #Cough. Residual cough with recent URI. Lungs are clear on exam. Discussed typical course postinfection. Discussed signs and symptoms to monitor for follow-up if no improvement or with any new or worsening symptoms. Case discussed with collaborating physician Robert Bowman who reviewed the assessment and plan. Chart, medications, labs, vital signs reviewed. Dictation was accomplished with the use of [employer] voice recognition software, prone to medical misidentifications and grammatical errors. This is unintentional and the practitioner does try to identify and correct these, but some could still be present. Please do not hesitate to contact practitioner for clarification. All questions answered to patients satisfaction. Patient verbalized understanding of diagnosis and treatments explained. To call sooner prior to next visit it any questions/concerns arise. 11/20/2024 Essential (primary) hypertension (ICD-10 - I10) #Type 2 diabetes. Poorly controlled. A1c 10.4 in the office today. She never the increased dose of Mounjaro 5 mg. Resent today. Advised to start this week. Will continue metformin 500 mg twice daily as well as Lantus 50 units at bedtime. Advised to monitor blood glucose closely. May need to adjust insulin dosing as we titrate up Mounjaro. Of note she does have an appointment with endocrinology next month. Discussed dietary modifications. Follow-up with me in 2 months with repeat A1c. Will likely need to titrate Mounjaro further. #Hypertension. BP at goal. On amlodipine, valsartan and metoprolol. Discussed importance of healthy diet and regular exercise. #Hyperlipidemia. will order repeat labs at next f/u visit in 2 months. #Cough. Residual cough with recent URI. Lungs are clear on exam. Discussed typical course postinfection. Discussed signs and symptoms to monitor for follow-up if no improvement or with any new or worsening symptoms. Case discussed with collaborating physician Robert Bowman who reviewed the assessment and plan. Chart, medications, labs, vital signs reviewed. Dictation was accomplished with the use of [employer] voice recognition software, prone to medical misidentifications and grammatical errors. This is unintentional and the practitioner does try to identify and correct these, but some could still be present. Please do not hesitate to contact practitioner for clarification. All questions answered to patients satisfaction. Patient verbalized understanding of diagnosis and treatments explained. To call sooner prior to next visit it any questions/concerns arise. 11/20/2024 Hyperlipidemia, unspecified hyperlipidemia type (ICD-10 - E78.5) #Type 2 diabetes. Poorly controlled. A1c 10.4 in the office today. She never the increased dose of Mounjaro 5 mg. Resent today. Advised to start this week. Will continue metformin 500 mg twice daily as well as Lantus 50 units at bedtime. Advised to monitor blood glucose closely. May need to adjust insulin dosing as we titrate up Mounjaro. Of note she does have an appointment with endocrinology next month. Discussed dietary modifications. Follow-up with me in 2 months with repeat A1c. Will likely need to titrate Mounjaro further. #Hypertension. BP at goal. On amlodipine, valsartan and metoprolol. Discussed importance of healthy diet and regular exercise. #Hyperlipidemia. will order repeat labs at next f/u visit in 2 months. #Cough. Residual cough with recent URI. Lungs are clear on exam. Discussed typical course postinfection. Discussed signs and symptoms to monitor for follow-up if no improvement or with any new or worsening symptoms. Case discussed with collaborating physician Robert Bowman who reviewed the assessment and plan. Chart, medications, labs, vital signs reviewed. Dictation was accomplished with the use of [employer] voice recognition software, prone to medical misidentifications and grammatical errors. This is unintentional and the practitioner does try to identify and correct these, but some could still be present. Please do not hesitate to contact practitioner for clarification. All questions answered to patients satisfaction. Patient verbalized understanding of diagnosis and treatments explained. To call sooner prior to next visit it any questions/concerns arise. 05/23/2024 Type 2 diabetes mellitus with unspecified complications (ICD-10 - E11.8) #Pneumonia. Rhonchi to left lower lobe on exam. Concern for early pneumonia with persistent symptoms after recent diagnosis of RSV. Will treat with azithromycin. Renewed albuterol inhaler to use as needed push fluids and rest. Discussed signs and symptoms to monitor for if no improvement in 1 week would suggest imaging. She does have multiple medication allergies. #RSV. She was here 2 weeks ago and tested positive for RSV. Symptoms are persisting. #Type 2 diabetes. A1c 9.6 in the office today. Not well-controlled. Will increase Ozempic from 1 mg to 2 mg. Advised to monitor blood sugars closely. Work on healthy diet and regular exercise when she is feeling better. Follow-up in 2 months with repeat A1c. #Rash. Small dry excoriated patch to top of gluteal fold. Will trial combo clotrimazole betamethasone sparingly for 1 week. Follow-up if no improvement or with any new or worsening symptoms. #Hypertension. Well controlled on current regimen. Case discussed with collaborating physician Robert Bowman who reviewed the assessment and plan. Chart, medications, labs, vital signs reviewed. Dictation was accomplished with the use of [employer] voice recognition software, prone to medical misidentifications and grammatical errors. This is unintentional and the practitioner does try to identify and correct these, but some could still be present. Please do not hesitate to contact practitioner for clarification. All questions answered to patients satisfaction. Patient verbalized understanding of diagnosis and treatments explained. To call sooner prior to next visit it any questions/concerns arise. 11/07/2024 Essential (primary) hypertension (ICD-10 - I10) #Cough/Acute bronchitis. Exposure to her daughter with respiratory illness as well. COVID flu RSV swab obtained and pending. Unfortunately results will not be available until tomorrow we will call patient with results in the morning. Discussed fluids and rest. Albuterol every 4-6 hours as needed. Advised to start Mucinex twice daily as well. Will send azithromycin to start once viral swab results given underlying medical conditions. She has multiple medication allergies. Discussed signs and symptoms to monitor for follow-up if no improvement or with any new or worsening symptoms. Case discussed with collaborating physician Robert Bowman who reviewed the assessment and plan. Chart, medications, labs, vital signs reviewed. Dictation was accomplished with the use of [employer] voice recognition software, prone to medical misidentifications and grammatical errors. This is unintentional and the practitioner does try to identify and correct these, but some could still be present. Please do not hesitate to contact practitioner for clarification. All questions answered to patients satisfaction. Patient verbalized understanding of diagnosis and treatments explained. To call sooner prior to next visit it any questions/concerns arise. 10/02/2024 Hyperlipidemia, unspecified hyperlipidemia type (ICD-10 - E78.5) #Type 2 diabetes. Poorly controlled. A1c 10.2 on recent labs. She never got the Mounjaro and stayed on Ozempic. Discussed importance of notifying hte office if she is having trouble getting her medication at the pharmacy. Will change to Mounjaro 5 mg today- to take on Tuesday (when next ozempic dose is due). Conitnue Metformin 1500 mg daily and lantus 50 units at bedtime. Monitor BG closely. Will adjust other meds once BG comes down. Discussed dietary modifications in detail. 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 Follow-up in 6 weeks for repeat A1c. Follow-up sooner with any concerns. #Hypertension. blood pressure borderline in the office today. Reports compliance with medications. On amlodipine, valsartan and metoprolol. Consider increasing meds at follow up if BP remains elevated. Discussed importance of healthy diet and regular exercise. #Hyperlipidemia. Labs reviewed with patient. Cut back on carbs and sugar in diet. #Muscle cramps. Lower extremities. Discussed importance of hydration and regular stretching. Magnesium slightly low. Start magnesium supplement at bedtime. Case discussed with collaborating physician Robert Bowman who reviewed the assessment and plan. Chart, medications, labs, vital signs reviewed. Dictation was accomplished with the use of [employer] voice recognition software, prone to medical misidentifications and grammatical errors. This is unintentional and the practitioner does try to identify and correct these, but some could still be present. Please do not hesitate to contact practitioner for clarification. All questions answered to patients satisfaction. Patient verbalized understanding of diagnosis and treatments explained. To call sooner prior to next visit it any questions/concerns arise. 07/31/2024 Elevated lipids (ICD-10 - E78.5) 07/31/2024 Hyperlipidemia, unspecified hyperlipidemia type (ICD-10 - E78.5) #Type 2 diabetes. Poorly controlled. A1c 9.9 in the office today. She did not tolerate 3 pills of metformin due to GI side effects. Currently on 500 mg twice daily as well as Ozempic 2 mg weekly and Lantus 50 units at bedtime. Blood sugars remain in the 300s. Will transition to Mounjaro and discontinue ozempic. Discussed risk benefits adverse effects of medication in detail with patient. Demonstrated proper use of pen autoinjector. Will need to monitor blood sugar closely and cut back on insulin dosing at bedtime. Depending on tolerance and blood sugar control may also be able to decrease metformin in the future. Follow-up in 6 weeks for repeat A1c. Follow-up sooner with any concerns. #Hypertension blood pressure elevated in the office today. Reports compliance with medications. On amlodipine, valsartan and metoprolol. Consider increasing meds at follow up if BP remains elevated. Discussed importance of healthy diet and regular exercise. #Hyperlipidemia. Due for updated labs. Follow-up pending results. #Muscle cramps. Lower extremities. Discussed importance of hydration and regular stretching. Will check labs follow-up pending results. Case discussed with collaborating physician Robert Bowman who reviewed the assessment and plan. Chart, medications, labs, vital signs reviewed. Dictation was accomplished with the use of [employer] voice recognition software, prone to medical misidentifications and grammatical errors. This is unintentional and the practitioner does try to identify and correct these, but some could still be present. Please do not hesitate to contact practitioner for clarification. All questions answered to patients satisfaction. Patient verbalized understanding of diagnosis and treatments explained. To call sooner prior to next visit it any questions/concerns arise. 05/07/2024 Type 2 diabetes mellitus with unspecified complications (ICD-10 - E11.8) Alexandria is a 68-year-old female with history of type 2 diabetes, hyperlipidemia, hypertension, and obesity who presents to the office today for urgent care visit for upper respiratory symptoms beginning on Tuesday including sore throat, hoarse voice, fever, and productive cough. Has been using zpak-bbk-hwnrper Robitussin and Mucinex with some relief. Reports fever on Tuesday of 100 degrees, then 99.4 degree(s) F, well-controlled with zcoe-poy-nodvemm Tylenol. Has been able to tolerate p.o. intake. Several sick contacts including her and 2 grandchildren. On physical exam patient is well-appearing and in no acute distress. Blood pressure 132/78, heart rate tachycardic 118, oxygen saturation 99% on room air. Lungs are clear to auscultation bilaterally without stridor, rales, rhonchi, or wheezing. Regular rate and rhythm appreciated with normal S1 and S2 without murmurs, rubs, or gallops. 2+ and equal radial pulses bilaterally. There is + lymphadenopathy appreciated of the bilateral submandibular lymph nodes. Oropharynx is not erythematous and nonedematous. Given clinical presentation likely suspect viral syndrome. Less likely to be bacterial given symptom duration. Can consider antibiotics if symptoms persist and do not improve. Viral swab obtained in office and is negative for COVID, negative for flu, positive for RSV. Patient made aware of these results. At this time we will treat symptomatically with guaifenesin extended release 600 mg to be taken every 12 hours as needed for cough. Advised this medication is extra strength compared to almx-mgo-hsuulzd guaifenesin in Mucinex. Also discussed supportive measures for further management including adequate rest, increasing hydration, and ensuring good nutrition. Patient understanding. Discussed red flag signs requiring emergency department valuation including intractable fever, chest pain, difficulty breathing, intractable vomiting or diarrhea, inability to tolerate p.o. intake, dizziness, or weakness. Patient demonstrates understanding. All patient questions answered at this time. # Hypertension: Blood pressure stable today 132/78. Continue amlodipine 5 mg once daily. Continue valsartan 80 mg once daily. Continue metoprolol succinate 25 mg once daily. Will continue to monitor. # Type 2 diabetes: Poor control. Per chart review hemoglobin A1c 9.4%, down from 9.6%. Continue Ozempic 1 mg once weekly subcutaneous injection. Continue metformin 500 mg 3 tablets once daily in the morning with food. Continue Lantus 50 units subcutaneous injection once daily at nighttime. Discussed importance of diet and lifestyle to lower hemoglobin A1c and prevent other comorbidities. Patient has follow-up scheduled 05/23/2024. # GERD: Continue esomeprazole 20 mg once daily 30 to 60 minutes for morning meal. Will continue to monitor. # Microcytic anemia: Last CBC obtained 11/22/2023 with significant values including RBC 5.2, MCV 74.9, MCH 23.2, MCHC 31.0, and RDW 17.1. Continue iron 27 mg 3 times weekly. Will continue to monitor with repeat blood work. # Hyperlipidemia: Continue atorvastatin 20 mg once daily. Will continue to monitor. All questions have been answered to patient's satisfaction. Patient verbalized understanding of diagnosis and treatments explained. Advised to call sooner prior to next visit it any questions/concerns arise. Case discussed with collaborating physician Augusto Bowman who reviewed the assessment and plan. Chart, medications, labs, vital signs reviewed. Dictation was accomplished with the use of [employer] voice recognition software, which is prone to medical misidentifications and grammatical errors. This are unintentional and the practitioner does try to identify and correct these, but some could still be present. Please do not hesitate to contact practitioner for clarification. 03/22/2024 Chronic diarrhea (ICD-10 - K52.9) #Type 2 diabetes. Not well controlled. A1C 9.4, down from 9.6 She has been on Ozempic 0.5 mg since last visit, will increase to 1 mg. New Rx sent. COntinue to work on healthy diet and regular exercise. F/u 2 months with repeat A1C. #Hypertension. Well controlled on current regimen. #Chronic Diarrhea. Ongoing issue. Saw GI in November. Colonoscopy scheduled in July. #GERD- refilled esomeprazole. Case discussed with collaborating physician Robert Bowman who reviewed the assessment and plan. Chart, medications, labs, vital signs reviewed. Dictation was accomplished with the use of [employer] voice recognition software, prone to medical misidentifications and grammatical errors. This is unintentional and the practitioner does try to identify and correct these, but some could still be present. Please do not hesitate to contact practitioner for clarification. All questions answered to patients satisfaction. Patient verbalized understanding of diagnosis and treatments explained. To call sooner prior to next visit it any questions/concerns arise. 02/21/2024 Chronic diarrhea (ICD-10 - K52.9) #Type 2 diabetes. Not well controlled. A1C 9.6. She has been on Ozempic, but never increased her dose after last visit as discussed. Will increase to 0.5 mg- reviewed pen dosing instruction. F/u 3-4 weeks. PLan to increase to 1 mg at that time. Discussed dietary modifications and need for regular exercise. #Hypertension. Well controlled on current regimen. #Chronic Diarrhea. Ongoing issue. Saw GI in November. Awaiting colonoscopy- advised to call today to follow up on this. Case discussed with collaborating physician Robert Bowman who reviewed the assessment and plan. Chart, medications, labs, vital signs reviewed. Dictation was accomplished with the use of [employer] voice recognition software, prone to medical misidentifications and grammatical errors. This is unintentional and the practitioner does try to identify and correct these, but some could still be present. Please do not hesitate to contact practitioner for clarification. All questions answered to patients satisfaction. Patient verbalized understanding of diagnosis and treatments explained. To call sooner prior to next visit it any questions/concerns arise. 03/22/2024 Gastroesophageal reflux disease without esophagitis (ICD-10 - K21.9) #Type 2 diabetes. Not well controlled. A1C 9.4, down from 9.6 She has been on Ozempic 0.5 mg since last visit, will increase to 1 mg. New Rx sent. COntinue to work on healthy diet and regular exercise. F/u 2 months with repeat A1C. #Hypertension. Well controlled on current regimen. #Chronic Diarrhea. Ongoing issue. Saw GI in November. Colonoscopy scheduled in July. #GERD- refilled esomeprazole. Case discussed with collaborating physician Robert Bowman who reviewed the assessment and plan. Chart, medications, labs, vital signs reviewed. Dictation was accomplished with the use of [employer] voice recognition software, prone to medical misidentifications and grammatical errors. This is unintentional and the practitioner does try to identify and correct these, but some could still be present. Please do not hesitate to contact practitioner for clarification. All questions answered to patients satisfaction. Patient verbalized understanding of diagnosis and treatments explained. To call sooner prior to next visit it any questions/concerns arise. 05/07/2024 Hyperlipidemia, unspecified hyperlipidemia type (ICD-10 - E78.5) Alexandria is a 68-year-old female with history of type 2 diabetes, hyperlipidemia, hypertension, and obesity who presents to the office today for urgent care visit for upper respiratory symptoms beginning on Tuesday including sore throat, hoarse voice, fever, and productive cough. Has been using knsp-uqy-jcvyyvd Robitussin and Mucinex with some relief. Reports fever on Tuesday of 100 degrees, then 99.4 degree(s) F, well-controlled with cuzs-ars-tmreair Tylenol. Has been able to tolerate p.o. intake. Several sick contacts including her and 2 grandchildren. On physical exam patient is well-appearing and in no acute distress. Blood pressure 132/78, heart rate tachycardic 118, oxygen saturation 99% on room air. Lungs are clear to auscultation bilaterally without stridor, rales, rhonchi, or wheezing. Regular rate and rhythm appreciated with normal S1 and S2 without murmurs, rubs, or gallops. 2+ and equal radial pulses bilaterally. There is + lymphadenopathy appreciated of the bilateral submandibular lymph nodes. Oropharynx is not erythematous and nonedematous. Given clinical presentation likely suspect viral syndrome. Less likely to be bacterial given symptom duration. Can consider antibiotics if symptoms persist and do not improve. Viral swab obtained in office and is negative for COVID, negative for flu, positive for RSV. Patient made aware of these results. At this time we will treat symptomatically with guaifenesin extended release 600 mg to be taken every 12 hours as needed for cough. Advised this medication is extra strength compared to gsiq-ath-rsvnlwh guaifenesin in Mucinex. Also discussed supportive measures for further management including adequate rest, increasing hydration, and ensuring good nutrition. Patient understanding. Discussed red flag signs requiring emergency department valuation including intractable fever, chest pain, difficulty breathing, intractable vomiting or diarrhea, inability to tolerate p.o. intake, dizziness, or weakness. Patient demonstrates understanding. All patient questions answered at this time. # Hypertension: Blood pressure stable today 132/78. Continue amlodipine 5 mg once daily. Continue valsartan 80 mg once daily. Continue metoprolol succinate 25 mg once daily. Will continue to monitor. # Type 2 diabetes: Poor control. Per chart review hemoglobin A1c 9.4%, down from 9.6%. Continue Ozempic 1 mg once weekly subcutaneous injection. Continue metformin 500 mg 3 tablets once daily in the morning with food. Continue Lantus 50 units subcutaneous injection once daily at nighttime. Discussed importance of diet and lifestyle to lower hemoglobin A1c and prevent other comorbidities. Patient has follow-up scheduled 05/23/2024. # GERD: Continue esomeprazole 20 mg once daily 30 to 60 minutes for morning meal. Will continue to monitor. # Microcytic anemia: Last CBC obtained 11/22/2023 with significant values including RBC 5.2, MCV 74.9, MCH 23.2, MCHC 31.0, and RDW 17.1. Continue iron 27 mg 3 times weekly. Will continue to monitor with repeat blood work. # Hyperlipidemia: Continue atorvastatin 20 mg once daily. Will continue to monitor. All questions have been answered to patient's satisfaction. Patient verbalized understanding of diagnosis and treatments explained. Advised to call sooner prior to next visit it any questions/concerns arise. Case discussed with collaborating physician Augusto Bowman who reviewed the assessment and plan. Chart, medications, labs, vital signs reviewed. Dictation was accomplished with the use of [employer] voice recognition software, which is prone to medical misidentifications and grammatical errors. This are unintentional and the practitioner does try to identify and correct these, but some could still be present. Please do not hesitate to contact practitioner for clarification. 07/31/2024 Muscle cramps (ICD-10 - R25.2) #Type 2 diabetes. Poorly controlled. A1c 9.9 in the office today. She did not tolerate 3 pills of metformin due to GI side effects. Currently on 500 mg twice daily as well as Ozempic 2 mg weekly and Lantus 50 units at bedtime. Blood sugars remain in the 300s. Will transition to Mounjaro and discontinue ozempic. Discussed risk benefits adverse effects of medication in detail with patient. Demonstrated proper use of pen autoinjector. Will need to monitor blood sugar closely and cut back on insulin dosing at bedtime. Depending on tolerance and blood sugar control may also be able to decrease metformin in the future. Follow-up in 6 weeks for repeat A1c. Follow-up sooner with any concerns. #Hypertension blood pressure elevated in the office today. Reports compliance with medications. On amlodipine, valsartan and metoprolol. Consider increasing meds at follow up if BP remains elevated. Discussed importance of healthy diet and regular exercise. #Hyperlipidemia. Due for updated labs. Follow-up pending results. #Muscle cramps. Lower extremities. Discussed importance of hydration and regular stretching. Will check labs follow-up pending results. Case discussed with collaborating physician Robert Bowman who reviewed the assessment and plan. Chart, medications, labs, vital signs reviewed. Dictation was accomplished with the use of [employer] voice recognition software, prone to medical misidentifications and grammatical errors. This is unintentional and the practitioner does try to identify and correct these, but some could still be present. Please do not hesitate to contact practitioner for clarification. All questions answered to patients satisfaction. Patient verbalized understanding of diagnosis and treatments explained. To call sooner prior to next visit it any questions/concerns arise. 07/31/2024 Diabetes mellitus type 2 in nonobese (ICD-10 - E11.9) 10/02/2024 Muscle cramps (ICD-10 - R25.2) #Type 2 diabetes. Poorly controlled. A1c 10.2 on recent labs. She never got the Mounjaro and stayed on Ozempic. Discussed importance of notifying hte office if she is having trouble getting her medication at the pharmacy. Will change to Mounjaro 5 mg today- to take on Tuesday (when next ozempic dose is due). Conitnue Metformin 1500 mg daily and lantus 50 units at bedtime. Monitor BG closely. Will adjust other meds once BG comes down. Discussed dietary modifications in detail. 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 Follow-up in 6 weeks for repeat A1c. Follow-up sooner with any concerns. #Hypertension. blood pressure borderline in the office today. Reports compliance with medications. On amlodipine, valsartan and metoprolol. Consider increasing meds at follow up if BP remains elevated. Discussed importance of healthy diet and regular exercise. #Hyperlipidemia. Labs reviewed with patient. Cut back on carbs and sugar in diet. #Muscle cramps. Lower extremities. Discussed importance of hydration and regular stretching. Magnesium slightly low. Start magnesium supplement at bedtime. Case discussed with collaborating physician Robert Bowman who reviewed the assessment and plan. Chart, medications, labs, vital signs reviewed. Dictation was accomplished with the use of [employer] voice recognition software, prone to medical misidentifications and grammatical errors. This is unintentional and the practitioner does try to identify and correct these, but some could still be present. Please do not hesitate to contact practitioner for clarification. All questions answered to patients satisfaction. Patient verbalized understanding of diagnosis and treatments explained. To call sooner prior to next visit it any questions/concerns arise. 05/23/2024 Skin rash (ICD-10 - R21) #Pneumonia. Rhonchi to left lower lobe on exam. Concern for early pneumonia with persistent symptoms after recent diagnosis of RSV. Will treat with azithromycin. Renewed albuterol inhaler to use as needed push fluids and rest. Discussed signs and symptoms to monitor for if no improvement in 1 week would suggest imaging. She does have multiple medication allergies. #RSV. She was here 2 weeks ago and tested positive for RSV. Symptoms are persisting. #Type 2 diabetes. A1c 9.6 in the office today. Not well-controlled. Will increase Ozempic from 1 mg to 2 mg. Advised to monitor blood sugars closely. Work on healthy diet and regular exercise when she is feeling better. Follow-up in 2 months with repeat A1c. #Rash. Small dry excoriated patch to top of gluteal fold. Will trial combo clotrimazole betamethasone sparingly for 1 week. Follow-up if no improvement or with any new or worsening symptoms. #Hypertension. Well controlled on current regimen. Case discussed with collaborating physician Robert Bowman who reviewed the assessment and plan. Chart, medications, labs, vital signs reviewed. Dictation was accomplished with the use of [employer] voice recognition software, prone to medical misidentifications and grammatical errors. This is unintentional and the practitioner does try to identify and correct these, but some could still be present. Please do not hesitate to contact practitioner for clarification. All questions answered to patients satisfaction. Patient verbalized understanding of diagnosis and treatments explained. To call sooner prior to next visit it any questions/concerns arise. 11/20/2024 Subacute cough (ICD-10 - R05.2) #Type 2 diabetes. Poorly controlled. A1c 10.4 in the office today. She never the increased dose of Mounjaro 5 mg. Resent today. Advised to start this week. Will continue metformin 500 mg twice daily as well as Lantus 50 units at bedtime. Advised to monitor blood glucose closely. May need to adjust insulin dosing as we titrate up Mounjaro. Of note she does have an appointment with endocrinology next month. Discussed dietary modifications. Follow-up with me in 2 months with repeat A1c. Will likely need to titrate Mounjaro further. #Hypertension. BP at goal. On amlodipine, valsartan and metoprolol. Discussed importance of healthy diet and regular exercise. #Hyperlipidemia. will order repeat labs at next f/u visit in 2 months. #Cough. Residual cough with recent URI. Lungs are clear on exam. Discussed typical course postinfection. Discussed signs and symptoms to monitor for follow-up if no improvement or with any new or worsening symptoms. Case discussed with collaborating physician Robert Bowman who reviewed the assessment and plan. Chart, medications, labs, vital signs reviewed. Dictation was accomplished with the use of [employer] voice recognition software, prone to medical misidentifications and grammatical errors. This is unintentional and the practitioner does try to identify and correct these, but some could still be present. Please do not hesitate to contact practitioner for clarification. All questions answered to patients satisfaction. Patient verbalized understanding of diagnosis and treatments explained. To call sooner prior to next visit it any questions/concerns arise. 05/23/2024 Essential (primary) hypertension (ICD-10 - I10) #Pneumonia. Rhonchi to left lower lobe on exam. Concern for early pneumonia with persistent symptoms after recent diagnosis of RSV. Will treat with azithromycin. Renewed albuterol inhaler to use as needed push fluids and rest. Discussed signs and symptoms to monitor for if no improvement in 1 week would suggest imaging. She does have multiple medication allergies. #RSV. She was here 2 weeks ago and tested positive for RSV. Symptoms are persisting. #Type 2 diabetes. A1c 9.6 in the office today. Not well-controlled. Will increase Ozempic from 1 mg to 2 mg. Advised to monitor blood sugars closely. Work on healthy diet and regular exercise when she is feeling better. Follow-up in 2 months with repeat A1c. #Rash. Small dry excoriated patch to top of gluteal fold. Will trial combo clotrimazole betamethasone sparingly for 1 week. Follow-up if no improvement or with any new or worsening symptoms. #Hypertension. Well controlled on current regimen. Case discussed with collaborating physician Robert Bowman who reviewed the assessment and plan. Chart, medications, labs, vital signs reviewed. Dictation was accomplished with the use of [employer] voice recognition software, prone to medical misidentifications and grammatical errors. This is unintentional and the practitioner does try to identify and correct these, but some could still be present. Please do not hesitate to contact practitioner for clarification. All questions answered to patients satisfaction. Patient verbalized understanding of diagnosis and treatments explained. To call sooner prior to next visit it any questions/concerns arise. 07/31/2024 Leg cramp (ICD-10 - R25.2) 05/07/2024 Gastroesophageal reflux disease with esophagitis without hemorrhage (ICD-10 - K21.00) Alexandria is a 68-year-old female with history of type 2 diabetes, hyperlipidemia, hypertension, and obesity who presents to the office today for urgent care visit for upper respiratory symptoms beginning on Tuesday including sore throat, hoarse voice, fever, and productive cough. Has been using rmvh-ohe-lswupgl Robitussin and Mucinex with some relief. Reports fever on Tuesday of 100 degrees, then 99.4 degree(s) F, well-controlled with dtac-xvn-dbszhrl Tylenol. Has been able to tolerate p.o. intake. Several sick contacts including her and 2 grandchildren. On physical exam patient is well-appearing and in no acute distress. Blood pressure 132/78, heart rate tachycardic 118, oxygen saturation 99% on room air. Lungs are clear to auscultation bilaterally without stridor, rales, rhonchi, or wheezing. Regular rate and rhythm appreciated with normal S1 and S2 without murmurs, rubs, or gallops. 2+ and equal radial pulses bilaterally. There is + lymphadenopathy appreciated of the bilateral submandibular lymph nodes. Oropharynx is not erythematous and nonedematous. Given clinical presentation likely suspect viral syndrome. Less likely to be bacterial given symptom duration. Can consider antibiotics if symptoms persist and do not improve. Viral swab obtained in office and is negative for COVID, negative for flu, positive for RSV. Patient made aware of these results. At this time we will treat symptomatically with guaifenesin extended release 600 mg to be taken every 12 hours as needed for cough. Advised this medication is extra strength compared to bxgi-xnq-aaonwpc guaifenesin in Mucinex. Also discussed supportive measures for further management including adequate rest, increasing hydration, and ensuring good nutrition. Patient understanding. Discussed red flag signs requiring emergency department valuation including intractable fever, chest pain, difficulty breathing, intractable vomiting or diarrhea, inability to tolerate p.o. intake, dizziness, or weakness. Patient demonstrates understanding. All patient questions answered at this time. # Hypertension: Blood pressure stable today 132/78. Continue amlodipine 5 mg once daily. Continue valsartan 80 mg once daily. Continue metoprolol succinate 25 mg once daily. Will continue to monitor. # Type 2 diabetes: Poor control. Per chart review hemoglobin A1c 9.4%, down from 9.6%. Continue Ozempic 1 mg once weekly subcutaneous injection. Continue metformin 500 mg 3 tablets once daily in the morning with food. Continue Lantus 50 units subcutaneous injection once daily at nighttime. Discussed importance of diet and lifestyle to lower hemoglobin A1c and prevent other comorbidities. Patient has follow-up scheduled 05/23/2024. # GERD: Continue esomeprazole 20 mg once daily 30 to 60 minutes for morning meal. Will continue to monitor. # Microcytic anemia: Last CBC obtained 11/22/2023 with significant values including RBC 5.2, MCV 74.9, MCH 23.2, MCHC 31.0, and RDW 17.1. Continue iron 27 mg 3 times weekly. Will continue to monitor with repeat blood work. # Hyperlipidemia: Continue atorvastatin 20 mg once daily. Will continue to monitor. All questions have been answered to patient's satisfaction. Patient verbalized understanding of diagnosis and treatments explained. Advised to call sooner prior to next visit it any questions/concerns arise. Case discussed with collaborating physician Augusto Bowman who reviewed the assessment and plan. Chart, medications, labs, vital signs reviewed. Dictation was accomplished with the use of [employer] voice recognition software, which is prone to medical misidentifications and grammatical errors. This are unintentional and the practitioner does try to identify and correct these, but some could still be present. Please do not hesitate to contact practitioner for clarification. 05/07/2024 Iron deficiency (ICD-10 - E61.1) Alexandria is a 68-year-old female with history of type 2 diabetes, hyperlipidemia, hypertension, and obesity who presents to the office today for urgent care visit for upper respiratory symptoms beginning on Tuesday including sore throat, hoarse voice, fever, and productive cough. Has been using okzs-mkm-poxvpoy Robitussin and Mucinex with some relief. Reports fever on Tuesday of 100 degrees, then 99.4 degree(s) F, well-controlled with vjbq-ohc-cmwjnyd Tylenol. Has been able to tolerate p.o. intake. Several sick contacts including her and 2 grandchildren. On physical exam patient is well-appearing and in no acute distress. Blood pressure 132/78, heart rate tachycardic 118, oxygen saturation 99% on room air. Lungs are clear to auscultation bilaterally without stridor, rales, rhonchi, or wheezing. Regular rate and rhythm appreciated with normal S1 and S2 without murmurs, rubs, or gallops. 2+ and equal radial pulses bilaterally. There is + lymphadenopathy appreciated of the bilateral submandibular lymph nodes. Oropharynx is not erythematous and nonedematous. Given clinical presentation likely suspect viral syndrome. Less likely to be bacterial given symptom duration. Can consider antibiotics if symptoms persist and do not improve. Viral swab obtained in office and is negative for COVID, negative for flu, positive for RSV. Patient made aware of these results. At this time we will treat symptomatically with guaifenesin extended release 600 mg to be taken every 12 hours as needed for cough. Advised this medication is extra strength compared to pyat-vel-tgglmdy guaifenesin in Mucinex. Also discussed supportive measures for further management including adequate rest, increasing hydration, and ensuring good nutrition. Patient understanding. Discussed red flag signs requiring emergency department valuation including intractable fever, chest pain, difficulty breathing, intractable vomiting or diarrhea, inability to tolerate p.o. intake, dizziness, or weakness. Patient demonstrates understanding. All patient questions answered at this time. # Hypertension: Blood pressure stable today 132/78. Continue amlodipine 5 mg once daily. Continue valsartan 80 mg once daily. Continue metoprolol succinate 25 mg once daily. Will continue to monitor. # Type 2 diabetes: Poor control. Per chart review hemoglobin A1c 9.4%, down from 9.6%. Continue Ozempic 1 mg once weekly subcutaneous injection. Continue metformin 500 mg 3 tablets once daily in the morning with food. Continue Lantus 50 units subcutaneous injection once daily at nighttime. Discussed importance of diet and lifestyle to lower hemoglobin A1c and prevent other comorbidities. Patient has follow-up scheduled 05/23/2024. # GERD: Continue esomeprazole 20 mg once daily 30 to 60 minutes for morning meal. Will continue to monitor. # Microcytic anemia: Last CBC obtained 11/22/2023 with significant values including RBC 5.2, MCV 74.9, MCH 23.2, MCHC 31.0, and RDW 17.1. Continue iron 27 mg 3 times weekly. Will continue to monitor with repeat blood work. # Hyperlipidemia: Continue atorvastatin 20 mg once daily. Will continue to monitor. All questions have been answered to patient's satisfaction. Patient verbalized understanding of diagnosis and treatments explained. Advised to call sooner prior to next visit it any questions/concerns arise. Case discussed with collaborating physician Augusto Bowman who reviewed the assessment and plan. Chart, medications, labs, vital signs reviewed. Dictation was accomplished with the use of [employer] voice recognition software, which is prone to medical misidentifications and grammatical errors. This are unintentional and the practitioner does try to identify and correct these, but some could still be present. Please do not hesitate to contact practitioner for clarification. Plan Of Treatment Pending Test Test Name Order Date Echocardiogram 01/12/2022 Colonoscopy 09/28/2023 Microalb/Creat Ratio, Randm Ur Stool-C Difficile Toxin 08/10/2022 Bone Density 09/28/2023 ESR 11/22/2023 Exercise Treadmill Stress Test (TMST) CBC (COMPLETE BLOOD COUNT) 08/31/2022 CBC (COMPLETE BLOOD COUNT) 02/01/2023 CBC (COMPLETE BLOOD COUNT) 12/21/2022 COMPREHENSIVE METABOLIC PANEL 12/21/2022 COMPREHENSIVE METABOLIC PANEL 02/01/2023 COMPREHENSIVE METABOLIC PANEL 08/31/2022 COMPREHENSIVE METABOLIC PANEL 11/22/2023 HEMOGLOBIN A1C 09/28/2023 HEMOGLOBIN A1C 12/21/2022 HEMOGLOBIN A1C 08/31/2022 LIPID PANEL 08/31/2022 MICROALBUMIN, URINE 08/31/2022 TSH 07/31/2024 MICROALB/CREAT RATIO, RANDOM 07/31/2024 MAGNESIUM 07/31/2024 LIPID PANEL, STANDARD 07/31/2024 LIPID PANEL, STANDARD 06/30/2023 CARROLL/SHIG/CAMPY, CULTURE AND SHIGA TOXIN, EIA W/RFL TO E.COLI, CULTURE 07/14/2022 IRON, TIBC AND FERRITIN PANEL 06/30/2023 IRON, TIBC AND FERRITIN PANEL 09/28/2023 COMPREHENSIVE METABOLIC PANEL 07/31/2024 BASIC METABOLIC PANEL 06/30/2023 MAGNESIUM 09/28/2023 MAGNESIUM 11/22/2023 CBC (INCLUDES DIFF/PLT) 11/22/2023 CBC (INCLUDES DIFF/PLT) 07/31/2024 URINALYSIS REFLEX 11/22/2023 HEMOGLOBIN A1c 07/31/2024 VITAMIN B12 09/28/2023 COMPLETE URINALYSIS 08/31/2022 COMPLETE URINALYSIS 12/21/2022 COMPLETE URINALYSIS 02/01/2023 US Abdomen 09/28/2022 US Duplex Venous Study LT 04/19/2023 PPC Rapid Covid/Strep/Flu/RSV 11/07/2024 PPC Hemoglobin A1C 11/20/2024 Next Appt Details Provider Name:Lyric Woodson, 0 01/24/2025 01:00:00 PM, [address] [facility] [address], [place], [address], Insurance Providers Payer Name Payer Address Payer Phone Subscriber Number Group Number Insured Name Patient Relationship to Insured Coverage Start Date Coverage End Date [employer] [facility] [address] [place] [address] [id number] Self - patient is the insured 4 Medical (General) History Medical History History ICD Code esophageal reflux History of breast cancer Z85.3 Essential (primary) hypertension I10 Hyperlipidemia, mild E78.5 Type 2 diabetes mellitus with complicati ons E11.8 Hyperlipidemia, mild E78.5 Asthma J45.909 Surgical History Surgery Date(Month/Year) tubal ligation breast cancer Bilateral mastectomy
--- OUTSIDE RECORDS SUMMARY | 2024-12-20 09:45 | XMS_ITS | Clinical Summary ---
Author Organization [address] [place] [address] Address [address] [place] [address] Phone Care Team Providers Care Punch Out Crew Member Name Role Phone Fei Bowman MD Primary Care Provider [phone] Allergies Active Allergy Reactions Criticality Noted Date Comments Aspirin Rash 06/23/2007 Levofloxacin Wheezing 02/21/2008 Penicillins Rash 06/23/2007 Procaine Other 08/16/2007 Blood pressure elevated, 'palpitations' Sulfamethoxazole-Trimethopri m Rash 01/04/2018 Vancomycin Itching 08/14/2010 Medications albuterol HFA (PROAIR HFA ; PROVENTIL HFA ; VENTOLIN HFA) 90 mcg/actuation inhaler Inhale 2 Puffs into the lungs 4 times daily as needed for Cough, Wheezing or Shortness of Breath. 11/06/19 21 Active alcohol antiseptic pads (ALCOHOL PREP SWABS TOP) 1 Units by Does not apply route 3 times daily as needed. use with glucometer 08/15/19 11 Active amLODIPine (NORVASC) 5 mg tablet TAKE 1 TABLET BY MOUTH EVERY DAY 03/02/20 22 Active atorvastatin (LIPITOR) 10 mg tablet Take 1 tablet by mouth daily. 07/17/19 22 Active pen needle, diabetic 32 gauge x 5/32 needle USE TO INJECT INSULIN AT BEDTIME 04/19/20 22 Active clotrimazole (LOTRIMIN) 1 % cream APPLY TO AFFECTED AREA TWICE A DAY 02/12/20 20 Active blood-glucose sensor (DEXCOM G6 SENSOR MISC) ONE SENSOR EVERY 10 DAYS SUBCUTANEOUSLY FOR DX E11.8 90 DAYS 09/05/19 24 Active blood-glucose transmitter (DEXCOM G6 TRANSMITTER MISC) USE 1 TRANSIMITTER DX: E11.8 SUBCUTANEOUS CHANGE 3 MONTH 90 DAYS 04/29/20 24 Active blood sugar diagnostic (Contour Next Test Strips) test strip TEST FASTING BLOOD SUGAR 1 TIME DAILY 02/13/20 Active dulaglutide (Trulicity) 4.5 mg/0.5 mL pen injector injection Inject 4.5 mg into the skin every 7 days. 11/19/19 Active esomeprazole (NexIUM) [address] capsule Take 1 capsule by mouth every morning (before breakfast). 07/17/19 Active FERROUS GLUCONATE ORAL TAKE 1 TABLET BY MOUTH THREE TIMES A WEEK 09/30/19 Active insulin glargine (Lantus Solostar U-100 Insulin) 100 unit/mL (3 mL) injection pen INJECT 50 UNITS OF INSULIN INTO THE SKIN DAILY 09/20/19 Active metFORMIN XR (GLUCOPHAGE-XR) 500 mg 24 hr tablet TAKE 2 TABLETS BY MOUTH DAILY (WITH BREAKFAST). 01/16/20 Active metoprolol succinate (TOPROL-XL) 25 mg 24 hr tablet TAKE 1 TABLET BY MOUTH EVERY DAY 03/09/20 Active nystatin (MYCOSTATIN) 100,000 unit/gram powder Apply to affected area twice a day as needed for rash 07/17/19 Active semaglutide (Ozempic) 0.25 mg or 0.5 mg(2 mg/1.5 mL) injection pen Inject into the skin. Active valsartan (DIOVAN) 80 mg tablet TAKE 1 TABLET BY MOUTH EVERY DAY 12/31/19 Active lancets lancets USE TO CHECK BLOOD SUGAR ONCE DAILY 09/26/19 Active dicyclomine (BENTYL) 10 mg capsule TAKE 1 CAPSULE BY MOUTH 3 TIMES DAILY FOR 30 DAYS. 90 capsule 1 05/28/19 Active polyethylene glycol (Golytely) 236-22.74-6.74 -5.86 gram solution Take 4L by mouth once for one dose. May substitue any PEG. Starting at 6PM the night before your procedure drink 1 8oz glasses at your own pace until you complete half of the gallon. Finish 2nd half of the gallon 5 hours before your procedure. 4000 mL 07/13/19 Active bisacodyL (DULCOLAX) 5 mg EC tablet Take 2 tablets by mouth right before beginning bowel prep. See instructions provided by the office 2 tablet 07/13/19 Active Active Problems Problem Noted Date Diagnosed Date Gastric inflammation 02/23/2024 Heartburn 02/23/2024 Overview (02/23/2024): Upper endoscopy with Dr. Mcgregor, 07/13/2007 - mild gastritis, no evidence of duodenal adenoma, but bx pending Osteoporosis 06/28/2019 Overview (02/23/2024): 06/18/2019 lumbar spine: T score of -2.7, Femur: T score of -1.5 Type 2 diabetes mellitus wit h diabetic mononeuropathy, without long-term current use of insulin ([facility] V24, [facility] V28) 08/19/2017 Breast cancer ([facility] V24, [facility] V28) 016 Overview (02/23/2024): Bilateral mastectomy. Follows with Dr. Rey. 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 HTN (hypertension), benign 02/12/2009 Immunizations Name Administration Dates Next Due PPD Test 09/01/2015, 4,05/30/2012,06/02,05/12/2010,05/12/2009,06/05/2008 ,06/23/2007 Pfizer SARS-CoV-2 COVID-19, mRNA, LNP-S, preservative free 03/29/2021,09/03/2020,08/13/2020 Pneumococcal polysaccharide 23 valent (Pneumovax 23) 2yo and older 10/17/2013 Td Tetanus diptheria (Tdvax) 7yo and older 09/01/2018 Tdap Tetanus diptheria acell ular pertussis (Boostrix; Adacel) 7yo and older 08/16/2007 Surgical History Surgery Date Site/Laterality Comments OTHER SURGICAL HISTORY PROCEDURE: HISTORICAL PARATHYROID SURGERY TUBAL LIGATION PROCEDURE: HISTORICAL TUBAL LIGATION OTHER SURGICAL HISTORY PROCEDURE: NC REPOSITIONING IO LENS PROSTHESIS REQ INC SPX; COMMENT: left eye ESOPHAGOGASTRODUODENOSCOPY 2006 PROCEDURE: NC ESOPHAGOGASTRODUODENOSCOPY TRANSORAL DIAGNOSTIC; COMMENT: duodenal adenoma. ESOPHAGOGASTRODUODENOSCOPY 07/14 PROCEDURE: NC ESOPHAGOGASTRODUODENOSCOPY TRANSORAL DIAGNOSTIC; COMMENT: normal; repeat in 07/2012 ESOPHAGOGASTRODUODENOSCOPY 08.20.13 PROCEDURE: NC EGD TRANSORAL BIOPSY SINGLE/MULTIPLE; COMMENT: normal, with nl duodenal biopsies COLONOSCOPY 09/14 [place] PROCEDURE: NC COLONOSCOPY STOMA DX INCLUDING COLLJ SPEC SPX; COMMENT: has polyps repeat in 2011; diverticulosis and hemorrhoids COLONOSCOPY 10/02/10 PROCEDURE: NC COLONOSCOPY STOMA DX INCLUDING COLLJ SPEC SPX; COMMENT: adenomas, tics and hemorrhoids; repeat in three years COLONOSCOPY 08/20/13 PROCEDURE: NC COLONOSCOPY STOMA W/RMVL JAMIE POLYP/OTH LES SNARE; COMMENT: adenoma, tics and hemorrhoids; repeat in 5 yrs BREAST BIOPSY PROCEDURE: BX BREAST; PERC NEEDLE CORE W/IMAG GUID; COMMENT: left side breast ca in 2009 BREAST LUMPECTOMY PROCEDURE: HISTORICAL BREAST LUMPECTOMY; COMMENT: small low grade DCIS left breast ( Dr. Nance CATARACT EXTRACTION 2019 PROCEDURE: HISTORICAL CATARACT REMOVAL Medical History Medical History Date Comments Asthma DX:Asthma Heartburn DX:Heartburn; CO MMENT: endoscopy in 07/2007 Gastric inflammation DX:Gastric inflammation Type II or unspecified type diabetes mellitus with unspecified complication, not stated as uncontrolled DX:Type II or unspecified t ype diabetes mellitus with unspecified complication, not stated as uncontrolled Esophageal reflux DX:Esophageal reflux Unspecified disorder of thyroid DX:Unspecified disorder of thyroid Personal history of malignan t neoplasm of breast DX:Personal history of malig nant neoplasm of breast; COMMENT: left side breast ca dx in 2009 History of malignant neoplas m of large intestine 2004 DX:History of malignant neop lasm of large intestine; COMMENT: cancerous polyp colon Family History Medical History Relation Name Comments Breast cancer Sister dx'd age 60 Blindness Neg Hx Cataracts Neg Hx Colon cancer Neg Hx Glaucoma Neg Hx Macular degeneration Neg Hx Ovarian cancer Neg Hx Strabismus Neg Hx Relation Name Status Comments Father ?internal bleed Mother with [facility] at age 27 Sister dx'd age 60 Alive Social History Tobacco Use Types Packs/Day Years Used Date Smoking Tobacco: Former Cigarettes 0 09/08/1979 - 05/09/1988 Smokeless Tobacco: Never Alcohol Use Standard Drinks/Week Comments No 0 (1 standard drink = 0.6 oz pur e alcohol) Interpersonal Safety Answer Date Record ed Physical Abuse 07/26/2024 Verbal Abuse 07/26/2024 Comments Unknown Sex and Gender Information Value Date Recorded Sex Assigned at Not on file Legal Sex Female 8:59 AM EST Gender Identity Not on file Sexual Orientation Not on file Obstetrics History Last Filed Vital Signs Vital Sign Reading Time Taken Comments Blood Pressure 144/88 07/26/2024 10:04 AM EDT Pulse 98 07/26/2024 10:04 AM EDT Temperature 36.1 C (97 F) 07/26/2024 9:44 AM EDT Respiratory Rate 16 07/26/2024 10:04 AM EDT Oxygen Saturation 100% 07/26/2024 10:04 AM EDT Inhaled Oxygen Concentration - - Weight 70.8 kg (156 lb) 07/26/2024 8:48 AM EDT Height 154.9 cm (5' 1 ) 07/26/2024 8:48 AM EDT Body Mass Index 29.48 07/26/2024 8:48 AM EDT Plan of Treatment Health Maintenance Due Date Last Done Comments Diabetes: Annual Foot Exam 1964 Diabetes: Annual Retina Eye Exam 1964 Zoster Vaccines (1 of 2) 1973 RSV Immunization Adult Patients (1 - Risk 60-74 years 1-dose series) 2014 Pneumococcal Vaccine: 50+ Years (2 of 2 - PCV) 10/17/2014 10/17/2013 Colorectal Cancer Screening: Stool Based Tests (FOBT/FIT) 04/17/2022 Medicare Annual Wellness Visit 04/17/2022 Social Influencers of Health Screening 04/17/2022 Depression Screening 05/09/2024 COVID-19 Vaccine (6 - Pfizer risk season) 2024 02/12/2024, 01/31/2022, 03/29/2021, Additional history exists Influenza Vaccine (#1) 2025 Diabetes: Blood Sugar Control Test (HGBA1C) 03/22/2025 09/19/2024, 10/20/2021 Falls Risk Assessment 07/26/2025 07/26/2024 Diabetes: Annual Urine Albumin-Creatinine Ratio (uACR) 09/19/2025 09/19/2024, 03/02/2021 Diabetes: Annual GFR (Glomerular Filtration Rate) 09/19/2025 09/19/2024, 07/13/2021 Hypertension/CHF/CAD Annual BMP Blood Test 09/19/2025 09/19/2024, 07/13/2021 DTaP,Tdap,and Td Vaccines (3 - Td or Tdap) 09/01/2028 09/01/2018, 08/16/2007 Colorectal Cancer Screening: Colonoscopy 07/26/2029 07/26/2024, 01/15/2019 Cholesterol Screening (Lipid Panel) 09/19/2029 09/19/2024, 03/02/2021 Osteoporosis Screening (Bone Density Screening) 01/05/2032 01/04/2022, 06/18/2019 Hepatitis C Screening Completed 11/08/2012 HIB Vaccines Aged Out No longer eligi ble based on patient's age to complete this topic HPV Vaccines Aged Out No longer eligi ble based on patient's age to complete this topic Hepatitis A Vaccines Aged Out No long er eligible based on patient's age to complete this topic Hepatitis B Vaccines Aged Out No long er eligible based on patient's age to complete this topic IPV Vaccines Aged Out No longer eligi ble based on patient's age to complete this topic MMR Vaccines Aged Out No longer eligi ble based on patient's age to complete this topic Meningococcal ACWY Vaccine Aged Out N o longer eligible based on patient's age to complete this topic Meningococcal B Vaccine Aged Out No l onger eligible based on patient's age to complete this topic RSV Immunization Patients Under 20 months Aged Out No longer eligible based on patient's age to complete this topic Varicella Vaccines Aged Out No longer eligible based on patient's age to complete this topic Procedures Procedure Name Priority Date/Time Associated Diagnosis Comments MICROALBUMIN CREATININE URINE RATIO Routine 09/19/2024 7:52 AM EDT Screening for thyroid disorder Hyperlipidemia Diabetes mellitus ([facility]/HCC V24, [facility]/HCC V28) Cramp of limb CBC WITH AUTO DIFFERENTIAL Routine 09/19/2024 7:46 AM EDT Screening for thyroid disorder Hyperlipidemia Diabetes mellitus ([facility]/HCC V24, CMS/HCC V28) Cramp of limb HEMOGLOBIN A1C Routine 09/19/2024 7:46 AM EDT Screening for thyroid disorder Hyperlipidemia Diabetes mellitus ([facility]/HCC V24, CMS/HCC V28) Cramp of limb LIPID PANEL WITH REFLEX TO DIRECT LDL Routine 09/19/2024 7:46 AM EDT Screening for thyroid disorder Hyperlipidemia Diabetes mellitus ([facility]/HCC V24, CMS/HCC V28) Cramp of limb COMPREHENSIVE METABOLIC PANEL Routine 09/19/2024 7:46 AM EDT Screening for thyroid disorder Hyperlipidemia Diabetes mellitus ([facility]/HCC V24, CMS/HCC V28) Cramp of limb CBC AND DIFFERENTIAL Routine 09/19/2024 7:46 AM EDT Screening for thyroid disorder Hyperlipidemia Diabetes mellitus (CMS/HCC V24, CMS/HCC V28) Cramp of limb MAGNESIUM Routine 09/19/2024 7:46 AM EDT Screening for thyroid disorder Hyperlipidemia Diabetes mellitus ([facility]/HCC V24, CMS/HCC V28) Cramp of limb THYROID STIMULATING HORMONE Routine 09/19/2024 7:46 AM EDT Screening for thyroid disorder Hyperlipidemia Diabetes mellitus (CMS/HCC V24, CMS/HCC V28) Cramp of limb COLONOSCOPY Routine 07/26/2024 9:43 AM EDT History of colon polyps DXA BONE DENSITY STUDY 1+ SITS AXIAL SKEL Routine 01/04/2022 11:39 AM EDT Type 2 diabetes mellitus with diabetic mononeuropathy (CMS/HCC V24, CMS/HCC V28) HM HEPATITIS C SCREENING Routine 11/08/2012 from Last 3 Months or Most Recently Relevant to Health Maintenance Results * (ABNORMAL) Microalbumin creatinine urine ratio (09/19/2024 7:52 AM EDT) Creatinine, Urine 234.0 mg/dL LAB CHEMISTRY METHOD 09/19/2024 9:00 AM EDT [facility] Microalb, Ur 69.1(H) 0.0 - 29.0 mg/L LAB CHEMISTRY METHOD 09/19/2024 9:00 AM EDT [facility] Microalb/Crea t Ratio 30(H) <30 mg/g creat LAB CHEMISTRY METHOD 09/19/2024 9:00 AM [facility] Urine Urine specimen obtained by clean catch procedure / Unknown Non-blood Collection / Unknown 09/19/2024 7:52 AM EDT 09/19/2024 7:57 AM EDT us Fei Bowman MD LAB URINE ORDERABLES Final Resul t [facility] [address] [place] [address], * (ABNORMAL) Lipid panel with reflex to direct LDL (09/19/2024 7:46 AM EDT) Cholesterol 131 0 - 200 mg/dL LAB CHEMISTRY METHOD 09/19/2024 8:43 AM EDT [facility] Triglycerides 181(H) 0 - 150 mg/dL LAB CHEMISTRY METHOD 09/19/2024 8:43 AM EDT [facility] HDL 46 >=40 mg/dL LAB CHEMISTRY METHOD 09/19/2024 8:43 AM EDT [facility] LDL Calculated 49 0 - 100 mg/dL LAB CHEMISTRY METHOD 09/19/2024 8:43 AM EDT [facility] VLDL Cholesterol Pan 36.2 mg/dL LAB CHEMISTRY METHOD 09/19/2024 8:43 AM EDT [facility] Non HDL Chol. (LDL+VLDL) 85 <145 mg/dL LAB CHEMISTRY METHOD 09/19/2024 8:43 AM EDT [facility] Chol/HDL Ratio 2.8 0.0 - 4.4 LAB CHEMISTRY METHOD 09/19/2024 8:43 AM EDT [facility] Blood Venous blood specimen / Unknown Venipuncture / Unknown 09/19/2024 7:46 AM EDT 09/19/2024 7:57 AM EDT us Fei Bowman MD LAB BLOOD ORDERABLES Final Resul t [facility] [address] [place] [address], * (ABNORMAL) CBC auto differential (09/19/2024 7:46 AM EDT) WBC 7.3 4.8 - 10.8 K/mcL LAB HEMETOLOGY METHOD 09/19/2024 8:16 AM [facility] RBC 5.20(H) 3.80 - 4.80 M/mcL LAB HEMETOLOGY METHOD 09/19/2024 8:16 AM [facility] Hemoglobin 12.1 11.5 - 16.0 g/dL LAB HEMETOLOGY METHOD 09/19/2024 8:16 AM [facility] Hematocrit 39.6 35.0 - 47.0 % LAB HEMETOLOGY METHOD 09/19/2024 8:16 AM T [facility] MCV 76.6(L) 79.0 - 98.0 FL LAB HEMETOLOGY METHOD 09/19/2024 8:16 AM [facility] MCH 23.4(L) 27.0 - 32.0 pcg LAB HEMETOLOGY METHOD 09/19/2024 8:16 AM T [facility] MCHC 30.6(L) 32.0 - 37.0 g/dL LAB HEMETOLOGY METHOD 09/19/2024 8:16 AM [facility] RDW 16.7(H) 11.0 - 15.0 % LAB HEMETOLOGY METHOD 09/19/2024 8:16 AM [facility] Platelets 295 130 - 400 K/mcL LAB HEMETOLOGY METHOD 09/19/2024 8:16 AM [facility] MPV 9.9 7.0 - 11.0 FL LAB HEMETOLOGY METHOD 09/19/2024 8:16 AM [facility] NRBC 0.0 <1.0 % LAB HEMETOLOGY METHOD 09/19/2024 8:16 AM [facility] NRBC Absolute 0.00 <0.10 K/mcL LAB HEMETOLOGY METHOD 09/19/2024 8:16 AM [facility] Neutrophils Relative 58.8 % LAB HEMETOLOGY METHOD 09/19/2024 8:16 AM [facility] Lymphocytes Relative 33.9 % LAB HEMETOLOGY METHOD 09/19/2024 8:16 AM [facility] Monocytes Relative 5.7 % LAB HEMETOLOGY METHOD 09/19/2024 8:16 AM [facility] Eosinophils Relative 0.7 % LAB HEMETOLOGY METHOD 09/19/2024 8:16 AM [facility] Basophils Relative 0.5 % LAB HEMETOLOGY METHOD 09/19/2024 8:16 AM [facility] Immature Granulocytes Relative 0.4 % LAB HEMETOLOGY METHOD 09/19/2024 8:16 AM [facility] Neutrophils Absolute 4.29 1.50 - 7.00 K/mcL LAB HEMETOLOGY METHOD 09/19/2024 8:16 AM [facility] Lymphocytes Absolute 2.48 1.00 - 5.00 K/mcL LAB HEMETOLOGY METHOD 09/19/2024 8:16 AM EDT [facility] Monocytes Absolute 0.42 0.20 - 1.00 [facility] LAB HEMETOLOGY METHOD 09/19/2024 8:16 AM EDT [facility] Eosinophils Absolute 0.05 0.00 - 0.50 [facility] LAB HEMETOLOGY METHOD 09/19/2024 8:16 AM EDT [facility] Basophils Absolute 0.04 0.00 - 0.20 [facility] LAB HEMETOLOGY METHOD 09/19/2024 8:16 AM EDT [facility] Immature Granulocytes Absolute 0.03 0.00 - 0.03 [facility] LAB HEMETOLOGY METHOD 09/19/2024 8:16 AM EDT [facility] Blood Venous blood specimen / Unknown Venipuncture / Unknown 09/19/2024 7:46 AM EDT 09/19/2024 7:57 AM EDT us Fei Bowman MD LAB BLOOD ORDERABLES Final Resul t Performing Organization Address City/[facility]/ZIP Co de Phone Number [facility] [address] [place] [address], * Thyroid stimulating hormone (09/19/2024 7:46 AM EDT) TSH 1.94 0.40 - 4.00 mcIU/mL LAB CHEMISTRY METHOD 09/19/2024 9:47 AM EDT [facility] Blood Venous blood specimen / Unknown Venipuncture / Unknown 09/19/2024 7:46 AM EDT 09/19/2024 7:57 AM EDT us Fei Bowman MD LAB BLOOD ORDERABLES Final Resul t [facility] [address] [place] [address], [place] [phone] * (ABNORMAL) Magnesium (09/19/2024 7:46 AM EDT) [facility] Magnesium 1.8(L) 1.9 - 2.6 mg/dL LAB CHEMISTRY METHOD 09/19/2024 8:43 AM EDT [facility] Blood Venous blood specimen / Unknown Venipuncture / Unknown 09/19/2024 7:46 AM EDT 09/19/2024 7:57 AM EDT us Fei Bowman MD LAB BLOOD ORDERABLES Final Resul t Performing Organization Address [facility]/ZIP Co de Phone Number [facility] [address] [place] [address], [place] [phone] * (ABNORMAL) Hemoglobin A1c (09/19/2024 7:46 AM EDT) [facility] Hemoglobin A1C 10.2(H) <6.5 % LAB CHEMISTRY METHOD 09/19/2024 10:39 AM EDT [facility] Mean Bld Glu Estim. 246 mg/dL LAB CHEMISTRY METHOD 09/19/2024 10:39 AM EDT [facility] Blood Venous blood specimen / Unknown Venipuncture / Unknown 09/19/2024 7:46 AM EDT 09/19/2024 7:57 AM EDT us Fei Bowman MD LAB BLOOD ORDERABLES Final Resul t [facility] [address] [place] [address], [place] [phone] * (ABNORMAL) Comprehensive metabolic panel (09/19/2024 7:46 AM EDT) [facility] Sodium 136 133 - 145 mmol/L LAB CHEMISTRY METHOD 09/19/2024 8:43 AM EDT [facility] Potassium 4.4 3.5 - 5.5 mmol/L LAB CHEMISTRY METHOD 09/19/2024 8:43 AM [facility] Chloride 105 96 - 110 mmol/L LAB CHEMISTRY METHOD 09/19/2024 8:43 AM [facility] CO2 24 21 - 32 mmol/L LAB CHEMISTRY METHOD 09/19/2024 8:43 AM [facility] Anion Gap 7 3 - 11 LAB CHEMISTRY METHOD 09/19/2024 8:43 AM [facility] Glucose 208(H) 70 - 100 mg/dL LAB CHEMISTRY METHOD 09/19/2024 8:43 AM [facility] BUN 9 5 - 25 mg/dL LAB CHEMISTRY METHOD 09/19/2024 8:43 AM [facility] Creatinine 0.88 0.50 - 1.10 mg/dL LAB CHEMISTRY METHOD 09/19/2024 8:43 AM [facility] eGFR 71 >=60 mL/min/1. 73m2 LAB CHEMISTRY METHOD 09/19/2024 8:43 AM [facility] Comment:Calculation based on the Chronic Kidney Disease Epidemiology Collaboration (CKD-EPI) equation refit without adjustment for race. BUN/Creatinine Ratio 10.2 LAB CHEMISTRY METHOD 09/19/2024 8:43 AM [facility] Calcium 9.9 8.5 - 10.5 mg/dL LAB CHEMISTRY METHOD 09/19/2024 8:43 AM [facility] AST (SGOT) 24 10 - 42 unit/L LAB CHEMISTRY METHOD 09/19/2024 8:43 AM [facility] ALT (SGPT) 39 10 - 60 unit/L LAB CHEMISTRY METHOD 09/19/2024 8:43 AM [facility] Alkaline Phosphatase 113 42 - 121 unit/L LAB CHEMISTRY METHOD 09/19/2024 8:43 AM [facility] Total Protein 7.1 6.0 - 8.0 g/dL LAB CHEMISTRY METHOD 09/19/2024 8:43 AM EDT [facility] Albumin 3.8 3.2 - 5.0 g/dL LAB CHEMISTRY METHOD 09/19/2024 8:43 AM EDT [facility] Total Bilirubin 1.0 0.0 - 1.4 mg/dL LAB CHEMISTRY METHOD 09/19/2024 8:43 AM EDT [facility] Blood Venous blood specimen / Unknown Venipuncture / Unknown 09/19/2024 7:46 AM EDT 09/19/2024 7:57 AM EDT Fei Bowman MD LAB BLOOD ORDERABLES Final Resul t [facility] [address] [place] [address], * COLONOSCOPY Anesthesia - MAC; [facility] ENDOSCOPY (07/26/2024 9:43 AM EDT) Anatomical Region Laterality Modality Endoscopy 07/26/2024 9:19 AM EDT Impressions 07/26/2024 9:44 AM EDT - One 8 mm polyp in the ascending colon, removed with a cold snare. Resected and retrieved. - One 8 mm polyp in the transverse colon, removed with a cold snare. Resected and retrieved. Clips were placed. Clip drier: [facility]. - Diverticulosis in the entire examined colon. - Internal hemorrhoids. - The examination was otherwise normal. Recommendation: - Await pathology results. - Repeat colonoscopy is recommended for surveillance. The colonoscopy date will be determined after pathology results from today's exam become available for review. Narrative 07/26/2024 9:44 AM EDT [facility] GI Patient Name: Alexandria Moran Procedure Date: 07/26/2024 9:19 AM Date of : 1955 Age: 68 Gender: Female Note Status: Finalized Attending MD: Ne Garcia MD, Procedure Date No Time: 07/26/2024 Procedure: Colonoscopy Indications: High risk colon cancer surveillance: Personal history of colonic polyps Providers: Ne Garcia MD Referring MD: Ne Garcia MD Medicines: Monitored Anesthesia Care Complications: No immediate complications. Estimated blood loss: Minimal. Estimated Blood Loss: Estimated blood loss was minimal. Procedure: Pre-Anesthesia Assessment: - Prior to the procedure, a History and Physical was performed, and patient medications and allergies were reviewed. The patient is competent. The risks and benefits of the procedure and the sedation options and risks were discussed with the patient. All questions were answered and informed consent was obtained. Patient identification and proposed procedure were verified by the physician, the nurse, the kiln firer and the process mold technician in the pre-procedure area in the endoscopy suite. Mental Status Examination: alert and oriented. Airway Examination: normal oropharyngeal airway and neck mobility. Respiratory Examination: clear to auscultation. CV Examination: normal. Prophylactic Antibiotics: The patient does not require prophylactic antibiotics. Prior Anticoagulants: The patient has taken no anticoagulant or antiplatelet agents. ASA Grade Assessment: III - A patient with severe systemic disease. After reviewing the risks and benefits, the patient was deemed in satisfactory condition to undergo the procedure. The anesthesia plan was to use monitored anesthesia care (MAC). Immediately prior to administration of medications, the patient was re-assessed for adequacy to receive sedatives. The heart rate, respiratory rate, oxygen saturations, blood pressure, adequacy of pulmonary ventilation, and response to care were monitored throughout the procedure. The physical status of the patient was re-assessed after the procedure. After I obtained informed consent, the scope was passed under direct vision. Throughout the procedure, the patient's blood pressure, pulse, and oxygen saturations were monitored continuously. The Olympus Colonoscope was introduced through the anus and advanced to the cecum, identified by appendiceal orifice and ileocecal valve. The colonoscopy was performed without difficulty. The patient tolerated the procedure well. The quality of the bowel preparation was good. Findings: The perianal and digital rectal examinations were normal. An 8 mm polyp was found in the ascending colon. The polyp was semi-pedunculated. The polyp was removed with a cold snare. Resection and retrieval were complete. Estimated blood loss was minimal. An 8 mm polyp was found in the transverse colon. The polyp was semi-pedunculated. The polyp was removed with a cold snare. Resection and retrieval were complete. To prevent bleeding after the polypectomy, two hemostatic clips were successfully placed. Clip drier: [facility]. There was no bleeding at the end of the procedure. Many small and large-mouthed diverticula were found in the entire colon. Internal hemorrhoids were found during retroflexion. The hemorrhoids were Grade I (internal hemorrhoids that do not prolapse). The exam was otherwise without abnormality. Procedure Code(s): --- Professional --- 56680, Colonoscopy, flexible; with removal of tumor(s), polyp(s), or other lesion(s) by snare technique Diagnosis Code(s): --- Professional --- D12.2, Benign neoplasm of ascending colon D12.3, Benign neoplasm of transverse colon (hepatic flexure or splenic flexure) CPT copyright 2020 [employer]. All rights reserved. The codes documented in this report are preliminary and upon hospital supervisor review may be revised to meet current compliance requirements. Ne Garcia MD 07/26/2024 9:44:23 AM This report has been signed electronically.Ne Garcia MD Number of Addenda: 0 Note Initiated On: 07/26/2024 9:19 AM Scope Withdrawal Time: 0 hours 15 minutes 36 seconds Scope In: 9:23:50 AM Scope Out: 9:42:31 AM Endoscopy Department at [facility] - [address] [place] [phone] Procedure Note Ne Garcia MD - 07/26/2024 [facility] GI Patient Name: Alexandria Moran Procedure Date: 07/26/2024 9:19 AM Date of : 1955 Age: 68 Gender: Female Note Status: Finalized Attending MD: Ne Garcia MD, Procedure Date No Time: 07/26/2024 Procedure: Colonoscopy Indications: High risk colon cancer surveillance: Personalhistory of colonic polyps Providers: Ne Garcia MD Referring MD: Ne Garcia MD Medicines: Monitored Anesthesia Care Complications: No immediate complications. Estimated blood loss: Minimal. Estimated Blood Loss: Estimated blood loss was minimal. Procedure: Pre-Anesthesia Assessment: - Prior to the procedure, a History and Physicalwas performed, and patient medications and allergieswere reviewed. The patient is competent. The risks and benefits of the procedure and the sedation optionsand risks were discussed with the patient. Allquestions were answered and informed consent was obtained. Patient identification and proposed procedure were verified by the physician, the nurse, theanesthetist and the process mold technician in the pre-procedure area in the endoscopy suite. Mental Status Examination: alertand oriented. Airway Examination: normal oropharyngeal airway and neck mobility. Respiratory Examination: clear to auscultation. CV Examination: normal. Prophylactic Antibiotics: The patient does notrequire prophylactic antibiotics. Prior Anticoagulants: The patient has taken no anticoagulant or antiplatelet agents. ASA Grade Assessment: III - A patient with severe systemic disease. After reviewing the risksand benefits, the patient was deemed in satisfactory condition to undergo the procedure. The anesthesia plan was to use monitored anesthesia care (MAC). Immediately prior to administration of medications, the patient was re-assessed for adequacy to receive sedatives. The heart rate, respiratory rate, oxygen saturations, blood pressure, adequacy of pulmonary ventilation, and response to care were monitored throughout the procedure. The physical status ofthe patient was re-assessed after the procedure. After I obtained informed consent, the scope was passed under direct vision. Throughout theprocedure, the patient's blood pressure, pulse, and oxygen saturations were monitored continuously. TheOlympus Colonoscope was introduced through the anus and advanced to the cecum, identified by appendiceal orifice and ileocecal valve. The colonoscopy was performed without difficulty. The patient tolerated the procedure well. The quality of the bowel preparation was good. Findings: The perianal and digital rectal examinations were normal. An 8 mm polyp was found in the ascending colon. The polyp was semi-pedunculated. The polyp was removed with a cold snare. Resection and retrieval were complete. Estimated blood loss was minimal. An 8 mm polyp was found in the transverse colon.The polyp was semi-pedunculated. The polyp was removed with a cold snare. Resection and retrieval were complete. To prevent bleeding after thepolypectomy, two hemostatic clips were successfully placed. Clip drier: [facility]. There was nobleeding at the end of the procedure. Many small and large-mouthed diverticula were foundin the entire colon. Internal hemorrhoids were found duringretroflexion. The hemorrhoids were Grade I (internal hemorrhoids that do not prolapse). The exam was otherwise without abnormality. Procedure Code(s): --- Professional --- 74798, Colonoscopy, flexible; with removal of tumor(s), polyp(s), or other lesion(s) by snare technique Diagnosis Code(s): --- Professional --- D12.2, Benign neoplasm of ascending colon D12.3, Benign neoplasm of transverse colon (hepatic flexure or splenic flexure) CPT copyright 2020 [employer]. All rights reserved. The codes documented in this report are preliminary and upon hospital supervisor reviewmay be revised to meet current compliance requirements. Ne Garcia MD 07/26/2024 9:44:23 AM This report has been signed electronically.Ne Garcia MD Number of Addenda: 0 Note Initiated On: 07/26/2024 9:19 AM Scope Withdrawal Time: 0 hours 15 minutes 36 seconds Scope In: 9:23:50 AM Scope Out: 9:42:31 AM Endoscopy Department at [facility] - [address] [place] [id number] IMPRESSION: - One 8 mm polyp in the ascending colon, removed with a cold snare. Resected and retrieved. - One 8 mm polyp in the transverse colon, removedwith a cold snare. Resected and retrieved. Clips were placed. Clip drier: [facility]. - Diverticulosis in the entire examined colon. - Internal hemorrhoids. - The examination was otherwise normal. Recommendation: - Await pathology results. - Repeat colonoscopy is recommended forsurveillance. The colonoscopy date will be determined after pathology results from today's exam becomeavailable for review. us Ne Garcia MD GI~PROCEDURE ORDERABLES Fin al Result * DXA BONE DENSITY STUDY 1+ SITS AXIAL SKEL (01/04/2022 11:39 AM EDT) Anatomical Region Laterality Modality Bone Densitometr y 09/01/2021 10:5 5 AM EDT Narrative 01/04/2022 5:12 PM EDT BONE DENSITY SCAN (DEXA): FINDINGS: Lumbar Spine T-score is -2.4. (SD relative to 20-29 y/o adult) Z-score is -0.4. (SD relative to age matched peers) This is considered osteopenia by WHO criteria. Left Hip T-score is -2.3. Z-score is -0.7. This is considered osteopenia by WHO criteria. Comparison exam(s): None. Lateral survey view of the thoracolumbar spine shows no significant compression deformities. IMPRESSION: IMPRESSION: Osteopenia by WHO criteria. This patient has a 19% risk of major osteoporotic fracture and a 4.1% risk of hip fracture over the next 10 years. (World Health Organization Fracture Risk Assessment) [facility] Department of Internal Medicine recommends using National Osteoporosis Foundation (NOF) guidelines in treatment decisions related to osteoporosis. NOF guidelines suggest considering treatment for postmenopausal women and men aged 50 or older presenting with the following: History of hip or vertebral fracture. T-score = -2.5 (DXA) at the femoral neck, total hip, or spine, after appropriate evaluation to exclude secondary causes. Low bone mass (T-score between -1.0 and -2.5 at the femoral neck or spine) AND a 10-year probability of a hip fracture = 3% OR a 10-year probability of a major osteoporosis-related fracture = 20% based on the [place]-adapted WHO algorithm Please note that all treatment decisions require clinical judgment and consideration of individual patient factors, including patient preferences, co-morbidities, previous drug use, risk factors not captured in the FRAX model (e.g., frailty, falls, vitamin D deficiency, increased bone turnover, interval significant decline in bone density) and possible under- or over-estimation of fracture risk by FRAX. Optional alternative screening schedule based on hernandez Gomez., [facility] May 27, 2011 for patients with osteopenia (based on hip BMD T-score) is as follows: * advanced osteopenia (T scores -2.00 to -2.49), BMD testing every year * moderate osteopenia (T scores -1.50 to -1.99), BMD testing every 5 years mild osteopenia or normal BMD (T scores -1.50 and higher), BMD testing every 15 years Procedure Note Inés French MD - 04/27/2022 BONE DENSITY SCAN (DEXA): FINDINGS: Lumbar Spine T-score is -2.4. (SD relative to 20-29 y/o adult) Z-score is -0.4. (SD relative to age matched peers) This is considered osteopenia by WHO criteria. Left Hip T-score is -2.3. Z-score is -0.7. This is considered osteopenia by WHO criteria. Comparison exam(s): None. Lateral survey view of the thoracolumbar spine shows no significantcompression deformities. IMPRESSION: IMPRESSION: Osteopenia by WHO criteria. This patient has a 19% risk of majorosteoporotic fracture and a 4.1% risk of hip fracture over the next 10 years. (World HealthOrganization Fracture Risk Assessment) [facility] Department of Internal Medicine recommendsusing National Osteoporosis Foundation (NOF) guidelines in treatment decisions related toosteoporosis. NOF guidelines suggest considering treatment for postmenopausal women and menaged 50 or older presenting with the following: History of hip or vertebral fracture. T-score = -2.5 (DXA) at the femoral neck, total hip, or spine, afterappropriate evaluation to exclude secondary causes. Low bone mass (T-score between -1.0 and -2.5 at the femoral neck or spine)AND a 10-year probability of a hip fracture = 3% OR a 10-year probability of a majorosteoporosis-related fracture = 20% based on the [place]-adapted WHO algorithm Please note that all treatment decisions require clinical judgment andconsideration of individual patient factors, including patient preferences, co- morbidities,previous drug use, risk factors not captured in the FRAX model (e.g., frailty, falls, vitaminD deficiency, increased bone turnover, interval significant decline in bone density) andpossible under- or over-estimation of fracture risk by FRAX. Optional alternative screening schedule based on alfredito Gomez al., NEJMJanuary 2011 for patients with osteopenia (based on hip BMD T-score) is as follows: * advanced osteopenia (T scores -2.00 to -2.49), BMD testing every year * moderate osteopenia (T scores -1.50 to -1.99), BMD testing every 5years mild osteopenia or normal BMD (T scores -1.50 and higher), BMD testingevery 15 years Corky Garcia MD IMG DXA PROCEDURES Final Result * Hepatitis C Screening (11/08/2012) Hepatitis C Screening Abstracted Historical Provider HEALTH MAINTENANCE Final Result from Last 3 Months or Most Recently Relevant to Health Maintenance Insurance MEDICARE [facility]) Advance Directives Documents on File Type Date Recorded 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 anation Health Care Decision (hx) 11/17/2015 AD MARIN DIRECTIVE Health Care Decision (hx) 11/17/2015 AD MARIN DIRECTIVE Health Care Decision (hx) 11/17/2015 AD MARIN DIRECTIVE Health Care Decision (hx) 11/17/2015 AD MARIN DIRECTIVE Health Care Decision (hx) 11/17/2015 AD MARIN DIRECTIVE Health Care Decision (hx) 11/17/2015 AD MARIN DIRECTIVE Health Care Decision (hx) 11/17/2015 AD MARIN DIRECTIVE Health Care Decision (hx) 11/17/2015 AD MARIN DIRECTIVE Care Teams Punch Out Crew Member Relationship Specialty Start Date End Date Fei Bowman MD [address] [place] [id number] PCP - General Internal Medicine 07/26/24
[2024-12-20 09:47] LABS: Glucose, Whole Blood 257 mg/dL (60-115)
== END 2024-12-20 10:12 | disposition home or self-care (01) ==
PROVIDERS: PCP Physician Assistant; Visit Provider Internal Medicine Endocrinology, Diabetes & Metabolism
DX: E11.65 Type 2 diabetes mellitus with hyperglycemia (principal); Z79.4 Long term (current) use of insulin
CPT/HCPCS: 99204; G2211

== ENCOUNTER → 2024-12-20 09:17 | Outpatient (BNVA) | payer BC, SELFPAY | PROVIDERS: PCP Physician Assistant; Visit Provider Internal Medicine Endocrinology, Diabetes & Metabolism | DX: E11.9 Type 2 diabetes mellitus without complications (principal); Z79.4 Long term (current) use of insulin; Z79.84 Long term (current) use of oral hypoglycemic drugs; Z79.899 Other long term (current) drug therapy | CPT/HCPCS: 82947; 83036; 99202 ==

== ENCOUNTER 2024-12-20 10:18 | Outpatient (REF) | payer MEDICARE, BC, SELFPAY ==
[2024-12-20 14:17] LABS: Microalbum/Creatinine Ratio Ur 56.1 ug/mg cr (<30)
== END 2024-12-20 10:19 | disposition home or self-care (01) ==
LOC: HO.10HDL 10:18
PROVIDERS: Visit Provider Internal Medicine Endocrinology, Diabetes & Metabolism
DX: E11.9 Type 2 diabetes mellitus without complications (principal)
CPT/HCPCS: 36415; 82043; 82570; 86341

== ENCOUNTER 2025-01-31 09:07 | Outpatient (AMB) | payer MEDICARE, BC, SELFPAY ==
--- NOTE | 2025-01-31 09:08 | A.OFFVIS_ITS ---
Vital Signs 01/31/25 09:13 Height 5 ft 1 in Weight 156 lb 1.396 oz BMI 29.5 BP 132/76 Blood Pressure Location Rt radial Position Sitting Pulse 92 Pulse Source Pulse Oximeter Pulse Oximetry (%) 96 Oxygen Delivery Method Room Air Intake Visit Reasons: f/u Type 2 DM Intake Note: Patient present today for T2DM follow up. 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 Accompanied by: Self / Same As Patient Allergies levofloxacin (From Levaquin) Allergy (Unknown, Verified 01/31/25 09:14) Hives Penicillins Allergy (Unknown, Verified 01/31/25 09:14) Hives sulfamethoxazole (From Bactrim) Allergy (Unknown, Verified 01/31/25 09:14) Hives trimethoprim (From Bactrim) Allergy (Unknown, Verified 01/31/25 09:14) Hives vancomycin Allergy (Unknown, Verified 01/31/25 09:14) Hives aspirin Adverse Reaction (Unknown, Verified 01/31/25 09:14) Upset GI Medication List - Last Reconciled 01/31/25 by Nas Vance MD albuterol sulfate 90 mcg/actuation 2 puffs inhalation Q4H PRN amlodipine 5 mg PO DAILY atorvastatin 20 mg PO DAILY blood sugar diagnostic (Contour Next Test Strips) As directed blood-glucose sensor (Dexcom G6 Sensor device) As directed blood-glucose transmitter (Dexcom G6 Transmitter device) As directed esomeprazole magnesium 20 mg PO QAM metformin ER 1,500 mg PO QAM metoprolol succinate ER 25 mg PO DAILY pen needle, diabetic (Holly 2nd Gen Pen Needle) As directed tirzepatide (Mounjaro) 7.5 mg (0.5 mL) subcut QWEEK Toujeo Max U-300 SoloStar (insulin glargine U-300 conc) 60 units (0.2 mL) subcut DAILY NS valsartan 80 mg PO DAILY HPI Comments Details: 69 YO F who is seen in consultation for T2DM at the request of PCP. Initially diagnosed with T2DM in 2013 . Never saw endo before Was initially started on treatment with metformin . Current regimen Toujeo 60 units . Metformin 1000 mg QD, Mounjaro 7.5 mg Qwkly Per the Dexcom CGMS is active 95 % of time . data the patient's predicted A1C is 10.5% Avg glucose is 300 . Variability of 49 The patient's blood sugars were in target 1% of the time, above target 99% of the time, and below target 0% of the time Pen shows persistent hyperglycemia throughout the day with increases post- breakfast Reports low sugars never. No Family history of T2DM but family hx unknown Has eyes checked yearly, last eye exam 10/2024 , denies retinopathy. Has neuropathy, not sees podiatry. Denies nephropathy, on EVI/ARB. . Has HLD, on statin. . Denies CAD. Not Had diabetes education. Anti-alanis 65 antibody is negative [facility] Medical History (Updated 12/20/24 @ 09:34 by Nas Vance MD) Type 2 diabetes mellitus Surgical History History of colonoscopy History of surgery Hx of bilateral mastectomy History of bilateral tubal ligation Family History Mother Heart disease Father No problems noted. Sister Cancer Social History Alcohol intake: never Patient Tobacco Use Status: Never used Tobacco Physical Exam Vital Signs: Last Vital Signs Pulse 92 01/31/25 09:13 BP 132/76 01/31/25 09:13 Pulse Ox 96 01/31/25 09:13 Oxygen Delivery Method Room Air 01/31/25 09:13 BMI result Body Mass Index 29.5 Absence of Cushingoid features. Absence of acromegalic features. Neck exam revea ls nl size thyroid about 15 gms. No thyroid nodules palpable. No carotid bruits present. Lungs CTA. Heart S1 S2, Reg R/R. No M/R/ G. Skin exam reveals absence of vitiligo or acanthosis nigricans. Abdominal exam reveals Soft NT/ND with NA BS. No organomegaly present. Neck Other: . Extrem Other: Visual exam of foot performed. No ulcerations or open lesions. No onchomycosis, no callouses.Pulses 2 + distally Sensation intact to monofilament exam. Vibratory sensation sensed is intact with 128 Hz tuning fork Results Reviewed Results Reviewed: Laboratory Last Values Glucose (Clinic) 246 mg/dL (60-115) H 01/31/ 09:20 Assessment & Plan Assessment & Plan (1) Type 2 diabetes mellitus: Code(s): E11.9 - Type 2 diabetes mellitus without complications Category: Medical Plan: 69-year-old female with a history of type 2 diabetes being treated metformin, Mounjaro and basal insulin with poor glycemic control and known microvascular namely microalbuminuria The plan is to have the pt increase Toujeo U-300 70 units and increase Mounjaro to 10 mg Qwkly . Could consider use of an SGLT2 inhibitor once glycemic control has improved somewhat . We will have patient see family life educator and human resources trainee. May need U-500 insulin in future . Encourage patient to make appointment with Podiatry (her primary care referred her there) Medications: Changed From tirzepatide (Mounjaro) 7.5 mg (0.5 mL) subcut QWEEK 2 mL 4RF To tirzepatide (Mounjaro) 10 mg (0.6667 mL) subcut QWEEK 6 mL 4RF From Toujeo Max U-300 SoloStar (insulin glargine U-300 conc) 60 units (0.2 mL) subcut DAILY 6 mL 4RF NS To Toujeo Max U-300 SoloStar (insulin glargine U-300 conc) 70 units (0.2333 mL) subcut DAILY 18 mL 4RF NS Coding Level of Care Code Est Pt Level 4 (68630) Complex EM visit Add On G2211 Diagnoses Type 2 diabetes mellitus E11.9
[2025-01-31 09:13] VITALS: BP 132/76; PULSE 92; O2SAT 96; BMI 29.5
[2025-01-31 09:25] LABS: Glucose, Whole Blood 246 mg/dL (60-115)
--- OUTSIDE RECORDS SUMMARY | 2025-01-31 10:01 | XMS_ITS | Clinical Summary ---
Author Organization [address] [place] [address] Address [address] [place] [address] Phone Care Team Providers Care Personal Finance Instructor Name Role Phone Fei Bowman MD Primary Care Provider [phone] Allergies Active Allergy Reactions Criticality Noted Date [...] mononeuropathy, without long-term current use of insulin ([facility] V24, [facility] V28) 08/19/2017 Breast cancer ([facility] V24, [facility] V28) 016 Overview (02/23/2024): Bilateral mastectomy. Follows with Dr. Rey. CTS (carpal tunnel syndrome) 02/19/2014 Hyperlipidemia with target LDL less than 100 Overview (02/23/2024): IMO update Diabetes mellitus with renal complications ([facility] V24, [facility] V28) 05/11/2011 DCIS (ductal carcinoma in situ) [...] HISTORICAL TUBAL LIGATION OTHER SURGICAL HISTORY PROCEDURE: [facility] REPOSITIONING IO LENS PROSTHESIS REQ INC SPX; COMMENT: left eye ESOPHAGOGASTRODUODENOSCOPY 2006 PROCEDURE: VA ESOPHAGOGASTRODUODENOSCOPY TRANSORAL DIAGNOSTIC; COMMENT: duodenal adenoma. ESOPHAGOGASTRODUODENOSCOPY 07/14 PROCEDURE: VA ESOPHAGOGASTRODUODENOSCOPY TRANSORAL DIAGNOSTIC; COMMENT: normal; repeat in 07/2012 ESOPHAGOGASTRODUODENOSCOPY 08.20.13 PROCEDURE: VA EGD TRANSORAL BIOPSY SINGLE/MULTIPLE; COMMENT: normal, with nl duodenal biopsies COLONOSCOPY 09/14 [place] PROCEDURE: VA COLONOSCOPY STOMA DX INCLUDING COLLJ SPEC SPX; COMMENT: has polyps repeat in 2011; diverticulosis and hemorrhoids COLONOSCOPY 10/02/10 PROCEDURE: VA COLONOSCOPY STOMA DX INCLUDING COLLJ SPEC SPX; COMMENT: adenomas, tics and hemorrhoids; repeat in three years COLONOSCOPY 08/20/13 PROCEDURE: VA COLONOSCOPY STOMA W/RMVL JAMIE POLYP/OTH LES SNARE; [...] Status Comments Father ?internal bleed Mother with DC at age 27 Sister dx'd age 60 [...] 05/09/2024 COVID-19 Vaccine (6 - Pfizer risk 2023- season) 2025 02/12/2024, 01/31/2022, 03/29/2021, Additional history exists Influenza [...] Procedure Name Priority Date/Time Associated Diagnosis Comments URINALYSIS WITH REFLEX MICROSCOPIC Routine 01/24/2025 1:29 PM EDT Dysuria URINALYSIS WITH REFLEX MICROSCOPIC Routine 01/24/2025 1:29 PM EDT Dysuria CULTURE URINE Routine 01/24/2025 1:29 PM EDT Dysuria MICROALBUMIN CREATININE URINE RATIO Routine 09/19/2024 7:52 [...] Type 2 diabetes mellitus with diabetic mononeuropathy ([facility]/HCC V24, [facility]/HCC V28) HEPATITIS C SCREENING Routine 11/08/2012 from Last 3 Months or Most Recently Relevant to Health Maintenance Results * (ABNORMAL) Urinalysis with reflex microscopic (01/24/2025 1:29 PM EDT) Specific [place] Urine 1.024 1.003 - 1.030 LAB URINALYSIS - AUTOMATED METHOD 01/24/2025 2:[address] [facility] pH, Urine 5.5 5.0 - 8.0 pH LAB URINALYSIS - AUTOMATED METHOD 01/24/2025 2:59 PM [facility] Leukocytes, Urine Trace(A) Negative LAB URINALYSIS - AUTOMATED METHOD 01/24/2025 2:59 PM [facility] Nitrite, Urine Negative Negative LAB URINALYSIS - AUTOMATED METHOD 01/24/2025 2:59 PM [facility] Protein, Urine Trace <=Trace mg/dL LAB URINALYSIS - AUTOMATED METHOD 01/24/2025 2:59 PM [facility] Glucose, Urine Negative Negative mg/dL LAB URINALYSIS - AUTOMATED METHOD 01/24/2025 2:59 PM [facility] Ketones, Urine Trace(A) Negative mg/dL LAB URINALYSIS - AUTOMATED METHOD 01/24/2025 2:59 PM [facility] Urobilinogen, Urine 1.0 0.2 - 1.0 mg/dL LAB URINALYSIS - AUTOMATED METHOD 01/24/2025 2:59 PM [facility] Bilirubin, Urine Negative Negative LAB URINALYSIS - AUTOMATED METHOD 01/24/2025 2:59 PM [facility] Blood, Urine Negative Negative LAB URINALYSIS - AUTOMATED METHOD 01/24/2025 2:59 PM [facility] RBC, Urine 2.2 0 - 4 /HPF LAB URINALYSIS - AUTOMATED METHOD 01/24/2025 2:59 PM [facility] WBC, Urine 3.9 0 - 4 /HPF LAB URINALYSIS - AUTOMATED METHOD 01/24/2025 2:59 PM [facility] Squamous Epithelial, Urine 62(H) 0 - 60 /LPF LAB URINALYSIS - AUTOMATED METHOD 01/24/2025 2:59 PM [facility] Bacteria, Urine Negative Negative /HPF LAB URINALYSIS - AUTOMATED METHOD 01/24/2025 2:59 PM [facility] Hyaline Casts, Urine 1.6 0 - 3 /LPF LAB URINALYSIS - AUTOMATED METHOD 01/24/2025 2:[address] [facility] Urine Urine specimen obtained by clean catch procedure / Unknown Non-blood Collection / Unknown 01/24/2025 1:29 PM EDT 01/24/2025 2:47 PM EDT [facility] URINE ORDERABLES Final Resul t Performing Organization Address [facility]/ZIP Co de Phone Number [facility] [address] [place] [address], [place] [phone] * Culture urine (01/24/2025 1:29 PM EDT) Culture, Urine <10,000 CFU/mL gram positive cocci, insignificant count, no further workup 01/25/2025 12:[address] [facility] Urine Urine specimen from urethra / Unknown Non-blood Collection / Unknown 01/24/2025 1:29 PM EDT 01/24/2025 2:48 PM EDT [facility] MICROBIOLOGY - GENERAL ORDER [place] Final Result Performing Organization Address [facility] Phone Number [facility] [address] [place] [address], [place] [phone] * (ABNORMAL) Microalbumin creatinine urine ratio (09/19/2024 7:52 AM EDT) Creatinine, Urine 234.0 mg/dL LAB CHEMISTRY METHOD 09/19/2024 9:[address] [facility] Microalb, Ur 69.1(H) 0.0 - 29.0 mg/L LAB CHEMISTRY METHOD 09/19/2024 9:[address] [facility] Microalb/Crea t Ratio 30(H) <30 mg/g creat LAB CHEMISTRY METHOD 09/19/2024 9:[address] [facility] Urine Urine specimen obtained by clean catch procedure / Unknown Non-blood Collection / Unknown 09/19/2024 7:52 AM EDT 09/19/2024 7:57 AM EDT us Fei Bowman MD LAB URINE ORDERABLES Final Resul t [facility] [address] [place] [address], [place] [phone] * (ABNORMAL) Lipid panel with reflex to direct LDL (09/19/2024 7:46 AM EDT) Cholesterol 131 0 - 200 mg/dL LAB CHEMISTRY METHOD 09/19/2024 8:43 AM [facility] Triglycerides 181(H) 0 - 150 mg/dL LAB CHEMISTRY METHOD 09/19/2024 8:43 AM [facility] HDL 46 >=40 mg/dL LAB CHEMISTRY METHOD 09/19/2024 8:43 AM [facility] LDL Calculated 49 0 - 100 mg/dL LAB CHEMISTRY METHOD 09/19/2024 8:43 AM [facility] VLDL Cholesterol Pan 36.2 mg/dL LAB CHEMISTRY METHOD 09/19/2024 8:43 AM [facility] Non HDL Chol. (LDL+VLDL) 85 <145 mg/dL LAB CHEMISTRY METHOD 09/19/2024 8:[address] [facility] Chol/HDL Ratio 2.8 0.0 - 4.4 LAB CHEMISTRY METHOD 09/19/2024 8:43 AM [facility] Blood Venous blood specimen / Unknown Venipuncture / Unknown 09/19/2024 7:46 AM EDT 09/19/2024 7:57 AM EDT us Fei Bowman MD LAB BLOOD ORDERABLES Final Resul t Performing Organization Address [facility] de Phone Number [facility] [address] [place] [address], * (ABNORMAL) Hemoglobin A1c (09/19/2024 7:46 AM EDT) Pathologist [facility] Hemoglobin A1C 10.2(H) <6.5 % LAB CHEMISTRY METHOD 09/19/2024 10:[address] [facility] Mean Bld Glu Estim. 246 mg/dL LAB CHEMISTRY METHOD 09/19/2024 10:[address] [facility] Blood Venous blood specimen / Unknown Venipuncture / Unknown 09/19/2024 7:46 AM EDT 09/19/2024 7:57 AM EDT Fei Bowman MD LAB BLOOD ORDERABLES Final Resul t Performing Organization Address [facility] de Phone Number [facility] [address] [place] [address], [place] [phone] * (ABNORMAL) Comprehensive metabolic panel (09/19/2024 7:46 AM EDT) [facility] Sodium 136 133 - 145 mmol/L LAB CHEMISTRY METHOD 09/19/2024 8:43 AM [facility] Potassium 4.4 3.5 - 5.5 mmol/L LAB CHEMISTRY METHOD 09/19/2024 8:[address] [facility] Chloride 105 96 - 110 mmol/L LAB CHEMISTRY METHOD 09/19/2024 8:43 AM [facility] CO2 24 21 - 32 mmol/L LAB CHEMISTRY METHOD 09/19/2024 8:[address] [facility] Anion Gap 7 3 - 11 LAB CHEMISTRY METHOD 09/19/2024 8:43 AM [facility] Glucose 208(H) 70 - 100 mg/dL LAB CHEMISTRY METHOD 09/19/2024 8:43 AM [facility] BUN 9 5 - 25 mg/dL LAB CHEMISTRY METHOD 09/19/2024 8:43 AM [facility] Creatinine 0.88 0.50 - 1.10 mg/dL LAB CHEMISTRY METHOD 09/19/2024 8:43 AM [facility] eGFR 71 >=60 mL/min/1. 73m2 LAB CHEMISTRY METHOD 09/19/2024 8:43 AM [facility] Comment:Calculation based on the Chronic Kidney Disease Epidemiology Collaboration (CKD-EPI) equation refit without adjustment for race. BUN/Creatinine Ratio 10.2 LAB CHEMISTRY METHOD 09/19/2024 8:43 AM [facility] Calcium 9.9 8.5 - 10.5 mg/dL LAB CHEMISTRY METHOD 09/19/2024 8:43 AM [facility] AST (SGOT) 24 10 - 42 unit/L LAB CHEMISTRY METHOD 09/19/2024 8:43 AM [facility] ALT (SGPT) 39 10 - 60 unit/L LAB CHEMISTRY METHOD 09/19/2024 8:43 AM [facility] Alkaline Phosphatase 113 42 - 121 unit/L LAB CHEMISTRY METHOD 09/19/2024 8:43 AM [facility] Total Protein 7.1 6.0 - 8.0 g/dL LAB CHEMISTRY METHOD 09/19/2024 8:43 AM [facility] Albumin 3.8 3.2 - 5.0 g/dL LAB CHEMISTRY METHOD 09/19/2024 8:43 AM [facility] Total Bilirubin 1.0 0.0 - 1.4 mg/dL LAB CHEMISTRY METHOD 09/19/2024 8:43 AM [facility] Blood Venous blood specimen / Unknown Venipuncture / Unknown 09/19/2024 7:46 AM EDT 09/19/2024 7:57 AM EDT us Fei Bowman MD LAB BLOOD ORDERABLES Final Resul t [facility] [address] [place] [address], * COLONOSCOPY Anesthesia - MAC; [facility] ENDOSCOPY (07/26/2024 9:43 AM EDT) Anatomical Region Laterality Modality Endoscopy 07/26/2024 9:19 AM EDT Impressions 07/26/2024 9:44 AM EDT - One 8 mm polyp in the ascending colon, removed with a cold snare. Resected and retrieved. - One 8 mm polyp in the transverse colon, removed with a cold snare. Resected and retrieved. Clips were placed. Clip corpsman: [email or web address]. - Diverticulosis in the entire examined colon. - Internal hemorrhoids. - The examination was otherwise normal. Recommendation: - Await pathology results. - Repeat colonoscopy is recommended for surveillance. The colonoscopy date will be determined after pathology results from today's exam become available for review. Narrative 07/26/2024 9:44 AM EDT [facility] Patient Name: Alexandria Moran [...] verified by the physician, the nurse, the washing machine striper and the non destructive testing technician in the pre-procedure area in the [...] two hemostatic clips were successfully placed. Clip corpsman: [email or web address]. There was no bleeding at the end of the procedure. Many small and large-mouthed diverticula were found in the entire colon. Internal hemorrhoids were found during retroflexion. The hemorrhoids were Grade I (internal hemorrhoids that do not prolapse). The exam was otherwise without abnormality. Procedure Code(s): --- Professional --- 89813, Colonoscopy, flexible; with removal of tumor(s), polyp(s), or other lesion(s) by snare technique Diagnosis Code(s): --- Professional --- D12.2, Benign neoplasm of ascending colon D12.3, Benign neoplasm of transverse colon (hepatic flexure or splenic flexure) CPT copyright 2020 [employer]. All rights reserved. The codes documented in this report are preliminary and upon crate builder review may be revised to meet current compliance requirements. Ne Garcia MD 07/26/2024 9:44:23 AM This report has been signed electronically.Ne Garcia MD Number of Addenda: 0 Note Initiated On: 07/26/2024 9:19 AM Scope Withdrawal Time: 0 hours 15 minutes 36 seconds Scope In: 9:23:50 AM Scope Out: 9:42:31 AM Endoscopy Department at [facility] - [address] [place] [id number] Procedure Note Ne Garcia MD - 07/26/2024 [facility] Patient Name: Alexandria Moran [...] the physician, the nurse, theanesthetist and the non destructive testing technician in the pre-procedure area in the [...] two hemostatic clips were successfully placed. Clip corpsman: [email or web address]. There was nobleeding at the end of the procedure. Many small and large-mouthed diverticula were foundin the entire colon. Internal hemorrhoids were found duringretroflexion. The hemorrhoids were Grade I (internal hemorrhoids that do not prolapse). The exam was otherwise without abnormality. Procedure Code(s): --- Professional --- 15280, Colonoscopy, flexible; with removal of tumor(s), polyp(s), or other lesion(s) by snare technique Diagnosis Code(s): --- Professional --- D12.2, Benign neoplasm of ascending colon D12.3, Benign neoplasm of transverse colon (hepatic flexure or splenic flexure) CPT copyright 2020 [employer]. All rights reserved. The codes documented in this report are preliminary and upon crate builder reviewmay be revised to meet current compliance requirements. Ne Garcia MD 07/26/2024 9:44:23 AM This report has been signed electronically.Ne Garcia MD Number of Addenda: 0 Note Initiated On: 07/26/2024 9:19 AM Scope Withdrawal Time: 0 hours 15 minutes 36 seconds Scope In: 9:23:50 AM Scope Out: 9:42:31 AM Endoscopy Department at [facility] - [address] [place] [phone] IMPRESSION: - One 8 mm polyp in the ascending colon, removed with a cold snare. Resected and retrieved. - One 8 mm polyp in the transverse colon, removedwith a cold snare. Resected and retrieved. Clips were placed. Clip corpsman: [email or web address]. - Diverticulosis in the entire examined colon. - Internal hemorrhoids. - The examination was otherwise normal. Recommendation: - Await pathology results. - Repeat colonoscopy is recommended forsurveillance. The colonoscopy date will be determined after pathology results from today's exam becomeavailable for review. Ne Garcia MD GI~PROCEDURE ORDERABLES Fin al [...] (World Health Organization Fracture Risk Assessment) The [facility] Department of Internal Medicine recommends using National [...] alternative screening schedule based on hernandez Gomez., [facility] May 27, 2011 for patients with osteopenia [...] years. (World HealthOrganization Fracture Risk Assessment) [facility] Department of Internal Medicine recommendsusing National Osteoporosis [...] alternative screening schedule based on hernandez Gomez., [facility] for patients with [facility]openia (based on [...] Final Result * Hepatitis C Screening (11/08/2012) [facility] Hepatitis C Screening Abstracted Historical Provider HEALTH MAINTENANCE Final Result from Last 3 Months or Most Recently Relevant to Health Maintenance Insurance [facility] Advance Directives Documents on File Type Date Recorded 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
--- OUTSIDE RECORDS SUMMARY | 2025-01-31 10:01 | XMS_ITS | Continuity of Care Document ---
Author Organization [facility] Address [address] [facility] [address] [place] [address] Phone [phone] Social History Type Date Description Comments Sex Female Sex Unknown Medical Devices Description No Information Available Encounters Description No Information Available Assessments Description No Information Available Plan of Treatment No Information Available Functional Status Description No Information Available Mental Status Description No Information Available Referrals Description No Information Available
--- OUTSIDE RECORDS SUMMARY | 2025-01-31 10:01 | XMS_ITS | Patient Health Record ---
Author Organization [facility] Address [address] [place] [address] Care Team Providers Care [employer] Name Role Phone Xiomara Dean Unavailable [phone] BARBARA BOWMAN Unavailable [phone] MARQUISE GODOY Unavailable [phone] Allergies Allergen (clinical drug ingredient) Drug/Non Drug Allergy documented on EMR Reaction Allergy Type Onset Date Status sulfamethoxazole / trimethoprim Bactrim Unknown Drug Allergy Active Levaquin Unknown Drug Allergy Active aspirin Aspirin Unknown Drug Allergy Active Penicillin Unknown Drug Allergy Active vancomycin Vancomycin Unknown Drug Allergy Activ e Results Component Value Reference Range Notes URINALYSIS WITH REFLEX MICRO SCOPIC Reviewed date:01/28/2025 01:00:47 PM Interpretation: Performing Lab: Notes/Report: Specific [place] Urine 1.024 1.003-1.030 pH, Urine 5.5 5.0-8.0 pH Leukocytes, Urine Trace Negative Nitrite, Urine Negative Negative Protein, Urine Trace <=Trace mg/dL Glucose, Urine Negative Negative mg/dL Ketones, Urine Trace Negative mg/dL Urobilinogen, Urine 1.0 0.2-1.0 mg/dL Bilirubin, Urine Negative Negative Blood, Urine Negative Negative RBC, Urine 2.2 0-4 /HPF WBC, Urine 3.9 0-4 /HPF Squamous Epithelial, Urine 62 0-60 /LPF Bacteria, Urine Negative Negative /HPF Hyaline Casts, Urine 1.6 0-3 /LPF CULTURE URINE Reviewed date:01/28/2025 01:00:33 PM Interpretation: Performing Lab: Notes/Report: Culture, Urine <10,000 CFU/mL gram positive cocci, insignificant count, no further workup MICROALBUMIN CREATININE URIN E RATIO Reviewed date:09/24/2024 12:12:15 PM Interpretation: Performing Lab: Notes/Report: Creatinine, Urine 234.0 Microalb, Ur 69.1 0.0-29.0 mg/L Microalb/Creat Ratio 30 <30 mg/g creat HEMOGLOBIN A1C Reviewed date:09/24/2024 12:15:36 PM Interpretation: Performing Lab: Notes/Report: Hemoglobin A1C 10.2 <6.5 % Mean Bld Glu Estim. 246 COMPREHENSIVE METABOLIC PANE L Reviewed date:09/24/2024 12:16:08 [...] K/mcL Immature Granulocytes Absolute 0.03 0.00-0.03 K/mcL TISSUE EXAM Reviewed date:07/27/2024 11:12:39 AM Interpretation: [...] 10% NB formalin fixed and paraffin embedded. Reason For Referral Reason [facility]; [facility] ontrolled diabetes Diagnosis 1 Uncontrolled type 2 diabetes mellitus with hyperglycemia (E11.65) Referral Organization [facility] [address] Referring Provider First Name Xiomara Ref[facility] Referring Provider Speciality Internal edicine Referred Provider Specialty Podiatry General Notes [address] [facility] [place], (p) [phone], (f) [phone] Clinical Notes Marlys Mcfarlane 02:46:33 PM > referral faxed with attachments Referral Priority Routine Reason [facility]; uncontr olled diabetes Diagnosis 1 Uncontrolled type 2 diabetes mellitus with hyperglycemia (E11.65) Referral Organization [facility] [address] Referring Provider First Name Xiomara Referring Provider Last Name Svrcek Referring Provider Speciality Internal edicine Referred Provider Specialty Nutrition General Notes (p) [phone], (f ) [phone] Clinical Notes Laverne Hamlin 10/08 10:14:51 AM >, insurance out of network will refer to alternative place Referral Priority Routine Reason uncontrolled diabete s Diagnosis 1 Type 2 diabetes clint itus with unspecified complications (E11.8) Referral Organization [facility] [address] Referring Provider First Name Xiomara Referring Provider Last Name Svreltonk Referring Provider Speciality Internal edicine Referred Provider Specialty Unknown General Notes [facility], [address] [place] [address], [address], [place] [address], phone- [phone], fax- [phone] Clinical Notes Laverne Hamlin 10/08 10:31:45 AM >, referral faxed, Ryne Gonzalez 10/12/2024 02:53:48 PM > refaxed to [phone], Ryne Gonzalez 10/23/2024 03:40:30 PM > Scheduled for 11/08 at [address] Vance. Pt aware Referral Priority Routine Medications Medication SIG (Take, Route, Frequency, Duration) Notes Start Date End Date Status Atorvastatin Calcium 20 MG TAKE 1 TABLET BY MOUTH EVERY DAY FOR 30 DAYS; Duration: 90 days Active Albuterol Sulfate HFA 108 (90 Base) MCG/ACT 2 puffs Inhalation every 4 hrs; Duration: 30 days As needed PRN Active BD Pen Needle Holly 2nd Gen 32G X 4 MM USE TO INJECT INSULIN AT BEDTIME; Duration: 90 Active metFORMIN HCl ER 500 MG TAKE 3 TABLETS B Y MOUTH EVERY DAY WITH BREAKFAST 90; Duration: 90 Active Esomeprazole Magnesium 20 MG 1 capsule 1/2 to 1 hour before morning meal Orally Once a day; Duration: 90 days 03/22/2024 Active Toujeo Max SoloStar 300 UNIT/ML Subcutaneous; Duration: 30 Days Active Dexcom G6 Transmitter - as directed; Dur ation: 90 days 03/22/2024 Active Mounjaro 7.5 MG/0.5ML Subcutaneous; Dura tion: 28 Days Active Contour Next Test - TEST FASTING BLOOD S UGAR 1 TIME DAILY; Duration: 90 Active Lancets - use 3 times a day; Duration: 90 days 09/22/2023 Active Lantus SoloStar 100 UNIT/ML 50 UNITS SUBCUTANEOUS BEDTIME 90 DAYS Subcutaneous once a day; Duration: 90 days Not-Taking Multi Complete - as directed Orally Active Dexcom G6 Sensor - one sensor every 10 days subcutaneously for DX E11.8; Duration: 90 days 05/18/2023 Active Nystatin 823854 UNIT/GM 1 application Ex ternally Twice a day; Duration: 30 days PRN 06/30/2023 Active Metoprolol Succinate ER 25 MG TAKE 1 TABLET BY MOUTH EVERY DAY FOR 30 DAYS; Duration: 90 Active amLODIPine Besylate 5 MG TAKE 1 TABLET BY MOUTH EVERY DAY; Duration: 90 Active Clotrimazole-Betamethas one 1-0.05 % APPLY DAILY TO SKIN TO AFFECTED AREA TWICE A DAY FOR 7 DAYS; Duration: 30 days Active Mounjaro 5 MG/0.5ML 0.5 ML Subcutaneous once weekly; Duration: 30 days replaces ozepmic Not-Taking Valsartan 80 MG TAKE 1 TABLET BY VERONIQUE TH EVERY DAY FOR 30 DAYS; Duration: 90 days Active Problems Problem Type SNOMED Code ICD Code Onset Dates Problem Status W/U Status Risk Notes Problem Disorder due to type 2 diabetes mellitus (169451433) Type 2 diabetes mellitus with unspecified complications (E11.8) Active confirmed Problem Iron deficiency (11689227) Iron deficiency (E61.1) Active confirmed Problem Hyperlipidemia (29983659) Hyperlipidemia, unspecified (E78.5) Active confirmed Problem Hypomagnesemia (335627808) Hypomagnesemia (E83.42) Active confirmed Problem Essential hypertension (14174840) Essential (primary) hypertension (I10) Active confirmed Problem Postoperative hypertension (9507029318076) Postprocedural hypertension (I97.3) Active confirmed Problem Diarrhea (72410490) Diarrhea, unspecified (R19.7) Active confirmed Problem Adult health examination (164149113) Encounter for general adult medical examination without abnormal findings (Z00.00) Active confirmed Problem Hyperlipidaemia (50817864) Hyperlipidemia, unspecified hyperlipidemia type (E78.5) Active confirmed Problem Gastroesophageal reflux disease without esophagitis (722898171) Gastroesophageal reflux disease without esophagitis (K21.9) Active confirmed Problem Type II diabetes mellitus without complication (095761229) Type 2 diabetes mellitus without complication, without long-term current use of insulin (E11.9) Active confirmed Problem Obesity (144641476) Obesity (BMI 35.0-39.9 without comorbidity) (E66.9) Active confirmed Problem Gastroesophageal reflux disease with esophagitis (disorder) (831304989) Gastroesophageal reflux disease with esophagitis without hemorrhage (K21.00) Active confirmed Problem Abdominal pain (81299925) Abdominal pain of unknown etiology (R10.9) Active confirmed Problem Hyperglycemia due to type 2 diabetes mellitus (890448465091777) Uncontrolled type 2 diabetes mellitus with hyperglycemia (E11.65) Active confirmed Problem Hyperlipidemia (93119304) Hyperlipidemia, mild (E78.5) Active confirmed Problem Endocrine/metabolic screening (602434160) Screening for endocrine disorder (Z13.29) Active confirmed Problem Type II diabetes mellitus without complication (691660755) Type 2 diabetes mellitus with hemoglobin A1c goal of 7.0%-8.0% (E11.9) Active confirmed Problem Elevated fasting lipid profile (032197006841) Elevated lipids (E78.5) Active confirmed Problem Diabetes mellitus type 2 in nonobese (343205276) Diabetes mellitus type 2 in nonobese (E11.9) Active confirmed Problem Cramp in lower limb (966999871) Leg cramp (R25.2) Active confirmed Vital Signs Heart Rate 79 /min 01/24/2025 Oximetry 98 % 01/24/2025 Blood pressure diastolic 66 mm Hg 01/24/2025 Height 61 in 01/24/2025 Blood pressure systolic 128 mm Hg 01/24/2025 Weight 156.0 lbs 01/24/2025 BMI 29.47 kg/m2 01/24/2025 Encounters Encounter Location Date Provider Diagnosis [facility] [address] [address] 02/21/2024 Xiomara Svrcek Type 2 diabetes clint itus with unspecified complications E11.8 ; Essential (primary) hypertension I10 and Chronic diarrhea K[facility].[address] [facility] [address] [address] 03/22/2024 Xiomara Svrcek Type 2 diabetes clint itus with unspecified complications E11.8 ; Essential (primary) hypertension I10 ; Chronic diarrhea K52.9 and Gastroesophageal reflux disease without esophagitis K21.9 [facility] [address] [facility] [address] [place] [address] 05/07/2024 MARQUISE BIRKS Acute cough R05.1 ; Essential (primary) hypertension I10 ; Type 2 diabetes mellitus with unspecified complications E11.8 ; Hyperlipidemia, unspecified hyperlipidemia type E78.5 ; Gastroesophageal reflux disease with esophagitis without hemorrhage K21.00 and Iron deficiency E61.1 [facility] [address] [address] 05/23/2024 Xiomara Svrcek Respiratory syncytia l virus (RSV) as cause of acute bronchitis J20.5 ; Pneumonia due to infectious organism, unspecified laterality, unspecified part of lung J18.9 ; Type 2 diabetes mellitus with unspecified complications E11.8 ; Skin rash R21 and Essential (primary) hypertension I10 [facility] [address] [address] 07/31/2024 Xiomara Svrcek Type 2 diabetes clint itus with unspecified complications E11.8 ; Essential (primary) hypertension I10 ; Hyperlipidemia, unspecified hyperlipidemia type E78.5 and Muscle cramps R25.2 [facility] [address] [address] 10/02/2024 Xiomara Svrcek Type 2 diabetes clint itus with unspecified complications E11.8 ; Essential (primary) hypertension I10 ; Hyperlipidemia, unspecified hyperlipidemia type E78.5 and Muscle cramps R25.2 [facility] [address] [address] 11/07/2024 Xiomara Svrcek Cough R05.9 ; Acute bronchitis, unspecified organism J20.9 and Essential (primary) hypertension I10 [facility] [address] [address] 11/20/2024 Xiomara Svrcek Type 2 diabetes clint itus with unspecified complications E11.8 ; Essential (primary) hypertension I10 ; Hyperlipidemia, unspecified hyperlipidemia type E78.5 and Subacute cough R05.2 [facility] [address] [address] 01/24/2025 Xiomara Svrcek Type 2 diabetes clint itus with unspecified complications E11.8 ; Essential (primary) hypertension I10 ; Hyperlipidemia, unspecified hyperlipidemia type E78.5 ; Rash R21 and Burning with urination R30.[address] [facility] [address] [place], [place] 04/12/2024 Xiomara Svrcek [facility] [address] [place], [place] 05/07/2024 TALAL BOWMAN [facility] [address] [place] [address] 06/04/2024 Xiomara Svrcek [facility] [address] [place] [address] 06/04/2024 Xiomara Svrcek [facility] [address] [address] 07/19/2024 TALAL BOWMAN [facility] [address] [address] 07/31/2024 TALAL BOWMAN Screening for endocr ine disorder Z13.29 ; Elevated lipids E78.5 ; Diabetes mellitus type 2 in nonobese E11.9 and Leg cramp R25.[address] [facility] [address] [place] [address] 09/04/2024 Xiomara Svrcek [facility] [address] [address] 10/02/2024 Xiomara Svrcek [facility] [address] [place] [address] 10/08/2024 Xiomara Svrcek [facility] [address] [facility] [address] [place], [place] 11/07/2024 Xiomara Svrcek [facility] [address] 11/07/2024 Xiomara Svrcek Assessments Encounter Date Diagnosis (ICD Code) [...] Dictation was accomplished with the use of [employer] voice recognition software, prone to medical misidentifications [...] Dictation was accomplished with the use of [employer] voice recognition software, prone to medical misidentifications [...] Dictation was accomplished with the use of [employer] voice recognition software, prone to medical misidentifications [...] Dictation was accomplished with the use of [employer] voice recognition software, prone to medical misidentifications [...] fever, and productive cough. Has been using doav-vnz-wxknsmt Robitussin and Mucinex with some relief. Reports fever on Tuesday of 100 degrees, then 99.4 degree(s) F, well-controlled with klax-cfh-omyvaxe Tylenol. Has been able to tolerate p.o. [...] this medication is extra strength compared to umyl-nxt-unvfzah guaifenesin in Mucinex. Also discussed supportive measures [...] Dictation was accomplished with the use of [employer] voice recognition software, which is prone to [...] Dictation was accomplished with the use of [employer] voice recognition software, prone to medical misidentifications [...] Dictation was accomplished with the use of [employer] voice recognition software, prone to medical misidentifications [...] Dictation was accomplished with the use of [employer] voice recognition software, prone to medical misidentifications [...] Dictation was accomplished with the use of [employer] voice recognition software, prone to medical misidentifications [...] Discussed dietary modifications in detail. Rfer to assistant health educator. Follow-up in 6 weeks for repeat A1c. [...] Dictation was accomplished with the use of [employer] voice recognition software, prone to medical misidentifications [...] Discussed dietary modifications in detail. Rfer to assistant health educator. Follow-up in 6 weeks for repeat A1c. [...] Dictation was accomplished with the use of [employer] voice recognition software, prone to medical misidentifications [...] fever, and productive cough. Has been using isez-nqs-vgzqlmy Robitussin and Mucinex with some relief. Reports fever on Tuesday of 100 degrees, then 99.4 degree(s) F, well-controlled with otcr-dsl-druqfvg Tylenol. Has been able to tolerate p.o. [...] this medication is extra strength compared to akzh-snd-eluaogi guaifenesin in Mucinex. Also discussed supportive measures [...] Dictation was accomplished with the use of [employer] voice recognition software, which is prone to [...] Dictation was accomplished with the use of [employer] voice recognition software, prone to medical misidentifications [...] Dictation was accomplished with the use of [employer] voice recognition software, prone to medical misidentifications [...] Dictation was accomplished with the use of [employer] voice recognition software, prone to medical misidentifications [...] Dictation was accomplished with the use of [employer] voice recognition software, prone to medical misidentifications and grammatical errors. This is unintentional and the practitioner does try to identify and correct these, but some could still be present. Please do not hesitate to contact practitioner for clarification. All questions answered to patients satisfaction. Patient verbalized understanding of diagnosis and treatments explained. To call sooner prior to next visit it any questions/concerns arise. 01/24/2025 Type 2 diabetes mellitus with unspecified complications (ICD-10 - E11.8) #Type 2 diabetes. Now following with endocrinology. They just increased her Mounjaro from 5 mg to 7.5 mg. She is tolerating well although has some constipation. Discussed bowel regimen. Encouraged MiraLAX daily until bowels are moving regularly. They also discontinued her Lantus and changed her to Toujeo. She has noticed some improvement in her blood sugar readings at home. Has follow-up with them next week. She will also be meeting with a assistant health educator and a repertoire manager in the next month. Will plan to follow-up with me in 3 months. She is up-to-date on her eye exams. #Hypertension. BP at goal. On amlodipine, valsartan and metoprolol. Discussed importance of healthy diet and regular exercise. #Hyperlipidemia. Labs recently ordered by lynne, will request. plan to f/u with me in 3 months. WIll be meeting with a repertoire manager. #Rash- intermittent to gluteal fold area. Refilled. clotrimazole cream. #Dysuria. MIld symptoms since yesterday. Will get Ua/Culture today and f/u pending results. Encouraged to push fluids. Discussed signs and symptoms to monitor for. Follow-up with any new or worsening symptoms. Case discussed with collaborating physician Robert Bowman who reviewed the assessment and plan. Chart, medications, labs, vital signs reviewed. Dictation was accomplished with the use of [employer] voice recognition software, prone to medical misidentifications and grammatical errors. This is unintentional and the practitioner does try to identify and correct these, but some could still be present. Please do not hesitate to contact practitioner for clarification. All questions answered to patients satisfaction. Patient verbalized understanding of diagnosis and treatments explained. To call sooner prior to next visit it any questions/concerns arise. 01/24/2025 Essential (primary) hypertension (ICD-10 - I10) #Type 2 diabetes. Now following with endocrinology. They just increased her Mounjaro from 5 mg to 7.5 mg. She is tolerating well although has some constipation. Discussed bowel regimen. Encouraged MiraLAX daily until bowels are moving regularly. They also discontinued her Lantus and changed her to Toujeo. She has noticed some improvement in her blood sugar readings at home. Has follow-up with them next week. She will also be meeting with a assistant health educator and a repertoire manager in the next month. Will plan to follow-up with me in 3 months. She is up-to-date on her eye exams. #Hypertension. BP at goal. On amlodipine, valsartan and metoprolol. Discussed importance of healthy diet and regular exercise. #Hyperlipidemia. Labs recently ordered by endo, will request. plan to f/u with me in 3 months. WIll be meeting with a repertoire manager. #Rash- intermittent to gluteal fold area. Refilled. clotrimazole cream. #Dysuria. MIld symptoms since yesterday. Will get Ua/Culture today and f/u pending results. Encouraged to push fluids. Discussed signs and symptoms to monitor for. Follow-up with any new or worsening symptoms. Case discussed with collaborating physician Robert Bowman who reviewed the assessment and plan. Chart, medications, labs, vital signs reviewed. Dictation was accomplished with the use of [employer] voice recognition software, prone to medical misidentifications and grammatical errors. This is unintentional and the practitioner does try to identify and correct these, but some could still be present. Please do not hesitate to contact practitioner for clarification. All questions answered to patients satisfaction. Patient verbalized understanding of diagnosis and treatments explained. To call sooner prior to next visit it any questions/concerns arise. 01/24/2025 Hyperlipidemia, unspecified hyperlipidemia type (ICD-10 - E78.5) #Type 2 diabetes. Now following with endocrinology. They just increased her Mounjaro from 5 mg to 7.5 mg. She is tolerating well although has some constipation. Discussed bowel regimen. Encouraged MiraLAX daily until bowels are moving regularly. They also discontinued her Lantus and changed her to Toujeo. She has noticed some improvement in her blood sugar readings at home. Has follow-up with them next week. She will also be meeting with a assistant health educator and a repertoire manager in the next month. Will plan to follow-up with me in 3 months. She is up-to-date on her eye exams. #Hypertension. BP at goal. On amlodipine, valsartan and metoprolol. Discussed importance of healthy diet and regular exercise. #Hyperlipidemia. Labs recently ordered by endo, will request. plan to f/u with me in 3 months. WIll be meeting with a repertoire manager. #Rash- intermittent to gluteal fold area. Refilled. clotrimazole cream. #Dysuria. MIld symptoms since yesterday. Will get Ua/Culture today and f/u pending results. Encouraged to push fluids. Discussed signs and symptoms to monitor for. Follow-up with any new or worsening symptoms. Case discussed with collaborating physician Robert Bowman who reviewed the assessment and plan. Chart, medications, labs, vital signs reviewed. Dictation was accomplished with the use of [employer] voice recognition software, prone to medical misidentifications [...] Dictation was accomplished with the use of [employer] voice recognition software, prone to medical misidentifications [...] Dictation was accomplished with the use of [employer] voice recognition software, prone to medical misidentifications [...] Dictation was accomplished with the use of [employer] voice recognition software, prone to medical misidentifications [...] Discussed dietary modifications in detail. Rfer to assistant health educator. Follow-up in 6 weeks for repeat A1c. [...] Dictation was accomplished with the use of [employer] voice recognition software, prone to medical misidentifications [...] Dictation was accomplished with the use of [employer] voice recognition software, prone to medical misidentifications [...] fever, and productive cough. Has been using revk-xzy-ebhpydd Robitussin and Mucinex with some relief. Reports fever on Tuesday of 100 degrees, then 99.4 degree(s) F, well-controlled with ithc-gsf-hgsznxn Tylenol. Has been able to tolerate p.o. [...] this medication is extra strength compared to fbsh-ubk-bnhcveo guaifenesin in Mucinex. Also discussed supportive measures [...] Dictation was accomplished with the use of [employer] voice recognition software, which is prone to [...] Dictation was accomplished with the use of [employer] voice recognition software, prone to medical misidentifications [...] Dictation was accomplished with the use of [employer] voice recognition software, prone to medical misidentifications [...] Dictation was accomplished with the use of [employer] voice recognition software, prone to medical misidentifications [...] fever, and productive cough. Has been using mqfu-stg-oxjegju Robitussin and Mucinex with some relief. Reports fever on Tuesday of 100 degrees, then 99.4 degree(s) F, well-controlled with ahcv-ymo-mpihxic Tylenol. Has been able to tolerate p.o. [...] this medication is extra strength compared to xnbz-zkc-wuprizj guaifenesin in Mucinex. Also discussed supportive measures [...] Dictation was accomplished with the use of [employer] voice recognition software, which is prone to [...] Dictation was accomplished with the use of [employer] voice recognition software, prone to medical misidentifications [...] Discussed dietary modifications in detail. Rfer to assistant health educator. Follow-up in 6 weeks for repeat A1c. [...] Dictation was accomplished with the use of [employer] voice recognition software, prone to medical misidentifications [...] Dictation was accomplished with the use of [employer] voice recognition software, prone to medical misidentifications [...] Dictation was accomplished with the use of [employer] voice recognition software, prone to medical misidentifications and grammatical errors. This is unintentional and the practitioner does try to identify and correct these, but some could still be present. Please do not hesitate to contact practitioner for clarification. All questions answered to patients satisfaction. Patient verbalized understanding of diagnosis and treatments explained. To call sooner prior to next visit it any questions/concerns arise. 01/24/2025 Rash (ICD-10 - R21) #Type 2 diabetes. Now following with endocrinology. They just increased her Mounjaro from 5 mg to 7.5 mg. She is tolerating well although has some constipation. Discussed bowel regimen. Encouraged MiraLAX daily until bowels are moving regularly. They also discontinued her Lantus and changed her to Toujeo. She has noticed some improvement in her blood sugar readings at home. Has follow-up with them next week. She will also be meeting with a assistant health educator and a repertoire manager in the next month. Will plan to follow-up with me in 3 months. She is up-to-date on her eye exams. #Hypertension. BP at goal. On amlodipine, valsartan and metoprolol. Discussed importance of healthy diet and regular exercise. #Hyperlipidemia. Labs recently ordered by lynne, will request. plan to f/u with me in 3 months. WIll be meeting with a repertoire manager. #Rash- intermittent to gluteal fold area. Refilled. clotrimazole cream. #Dysuria. MIld symptoms since yesterday. Will get Ua/Culture today and f/u pending results. Encouraged to push fluids. Discussed signs and symptoms to monitor for. Follow-up with any new or worsening symptoms. Case discussed with collaborating physician Robert Bowman who reviewed the assessment and plan. Chart, medications, labs, vital signs reviewed. Dictation was accomplished with the use of Grounded[employer] voice recognition software, prone to medical misidentifications [...] Dictation was accomplished with the use of [employer] voice recognition software, prone to medical misidentifications [...] fever, and productive cough. Has been using eyhv-hld-gvpfope Robitussin and Mucinex with some relief. Reports fever on Tuesday of 100 degrees, then 99.4 degree(s) F, well-controlled with feem-iod-qpmlnuc Tylenol. Has been able to tolerate p.o. [...] this medication is extra strength compared to mfhw-irl-onktfic guaifenesin in Mucinex. Also discussed supportive measures [...] Dictation was accomplished with the use of Grounded[employer] voice recognition software, which is prone to [...] fever, and productive cough. Has been using kchf-fka-cjxvxgu Robitussin and Mucinex with some relief. Reports fever on Tuesday of 100 degrees, then 99.4 degree(s) F, well-controlled with zsxe-thc-nuqjxeb Tylenol. Has been able to tolerate p.o. [...] this medication is extra strength compared to bchj-cdl-mdliibr guaifenesin in Mucinex. Also discussed supportive measures [...] Dictation was accomplished with the use of Gr[employer] voice recognition software, which is prone to medical misidentifications and grammatical errors. This are unintentional and the practitioner does try to identify and correct these, but some could still be present. Please do not hesitate to contact practitioner for clarification. 01/24/2025 Burning with urination (ICD-10 - R30.0) #Type 2 diabetes. Now following with endocrinology. They just increased her Mounjaro from 5 mg to 7.5 mg. She is tolerating well although has some constipation. Discussed bowel regimen. Encouraged MiraLAX daily until bowels are moving regularly. They also discontinued her Lantus and changed her to Toujeo. She has noticed some improvement in her blood sugar readings at home. Has follow-up with them next week. She will also be meeting with a assistant health educator and a repertoire manager in the next month. Will plan to follow-up with me in 3 months. She is up-to-date on her eye exams. #Hypertension. BP at goal. On amlodipine, valsartan and metoprolol. Discussed importance of healthy diet and regular exercise. #Hyperlipidemia. Labs recently ordered by lynne, will request. plan to f/u with me in 3 months. WIll be meeting with a repertoire manager. #Rash- intermittent to gluteal fold area. Refilled. clotrimazole cream. #Dysuria. MIld symptoms since yesterday. Will get Ua/Culture today and f/u pending results. Encouraged to push fluids. Discussed signs and symptoms to monitor for. Follow-up with any new or worsening symptoms. Case discussed with collaborating physician Robert Bowman who reviewed the assessment and plan. Chart, medications, labs, vital signs reviewed. Dictation was accomplished with the use of Gr[employer] voice recognition software, prone to medical misidentifications and grammatical errors. This is unintentional and the practitioner does try to identify and correct these, but some could still be present. Please do not hesitate to contact practitioner for clarification. All questions answered to patients satisfaction. Patient verbalized understanding of diagnosis and treatments explained. To call sooner prior to next visit it any questions/concerns arise. Plan Of Treatment Pending Test Test Name Order Date Echocardiogram 01/12/2022 Colonoscopy 09/28/2023 Microalb/Creat Ratio, Randm Ur Stool-C Difficile Toxin 08/10/2022 Bone Density 09/28/2023 ESR 11/22/2023 Exercise Treadmill Stress Test (TMST) CBC (COMPLETE BLOOD COUNT) 08/31/2022 CBC (COMPLETE BLOOD COUNT) 12/21/2022 CBC (COMPLETE BLOOD COUNT) 02/01/2023 COMPREHENSIVE METABOLIC PANEL 02/01/2023 COMPREHENSIVE METABOLIC PANEL 12/21/2022 COMPREHENSIVE METABOLIC PANEL 08/31/2022 COMPREHENSIVE METABOLIC PANEL 11/22/2023 HEMOGLOBIN A1C 09/28/2023 HEMOGLOBIN A1C 08/31/2022 HEMOGLOBIN A1C 12/21/2022 LIPID PANEL 08/31/2022 MICROALBUMIN, URINE 08/31/2022 TSH 07/31/2024 MICROALB/CREAT RATIO, RANDOM 07/31/2024 URINE CULTURE 01/24/2025 UA WITH CULTURE IF INDICATED 01/24/2025 MAGNESIUM 07/31/2024 LIPID PANEL, STANDARD 07/31/2024 LIPID PANEL, STANDARD 06/30/2023 CARROLL/SHIG/CAMPY, CULTURE AND SHIGA TOXIN, EIA W/RFL TO E.COLI, CULTURE 07/14/2022 IRON, TIBC AND FERRITIN PANEL 06/30/2023 IRON, TIBC AND FERRITIN PANEL 09/28/2023 COMPREHENSIVE METABOLIC PANEL 07/31/2024 BASIC METABOLIC PANEL 06/30/2023 MAGNESIUM 11/22/2023 MAGNESIUM 09/28/2023 CBC (INCLUDES DIFF/PLT) 11/22/2023 CBC (INCLUDES DIFF/PLT) 07/31/2024 URINALYSIS REFLEX 11/22/2023 HEMOGLOBIN A1c 07/31/2024 VITAMIN B12 09/28/2023 COMPLETE URINALYSIS 12/21/2022 COMPLETE URINALYSIS 08/31/2022 COMPLETE URINALYSIS 02/01/2023 US Abdomen 09/28/2022 US Duplex Venous Study LT 04/19/2023 PPC Rapid Covid/Strep/Flu/RSV 11/07/2024 PPC Hemoglobin A1C 11/20/2024 Next Appt Details Provider Name:Xiomara Dean, 1 06/19/2024 01:30:00 PM, [address] [facility] [address], [place], [address], Insurance Providers Payer Name Payer Address Payer Phone Subscriber Number Group Number Insured Name Patient Relationship to Insured Coverage Start Date Coverage End Date [facility] [address] [place] [address] [id number] [place] [employer] Self - patient is the insured 4 Medical (General) History Medical History History ICD Code esophageal reflux History of breast cancer Z85.3 Essential (primary) hypertension I10 Hyperlipidemia, mild E78.5 Type 2 diabetes mellitus with complicati ons E11.8 Hyperlipidemia, mild E78.5 Asthma J45.909 Surgical History Surgery Date(Month/Year) tubal ligation breast cancer Bilateral mastectomy
--- OUTSIDE RECORDS SUMMARY | 2025-01-31 10:01 | XMS_ITS | Clinical Summary ---
[facility] Organization [facility] Address [address] [place] [address] Care Team Providers Care Electrician Yard Name Role Phone Marina Jesus MD Primary Care Provider [phone] Allergies Active Allergy Reactions Criticality Noted Date [...] (DEXA Scan) 09/08/2019 COVID-19 Vaccine (4 - 2024-2 6 season) 2025 03/29/2021, 09/03/2020, 08/13/2020 Influenza Vaccine (#1) 2025 RSV Adult > 60+ Yrs or (1 - 1-dose 75+ series) 2029 Hepatitis B Vaccines Aged Out No long er eligible based on patient's age to complete this topic RSV Ped < 20 months Aged Out No longe r eligible based on patient's age to complete this topic Care Teams Electrician Yard Relationship Specialty Start Date End Date Marina Jesus MD PCP - General Internal Medicine 03/28/17
== END 2025-01-31 10:23 | disposition home or self-care (01) ==
LOC: HO.ENCR 09:08
PROVIDERS: PCP Physician Assistant; Visit Provider Internal Medicine Endocrinology, Diabetes & Metabolism
DX: E11.9 Type 2 diabetes mellitus without complications (principal)
CPT/HCPCS: 99214; G2211

== ENCOUNTER 2025-01-31 09:07 | Outpatient (AMB) | payer MEDICARE, BC, SELFPAY ==
--- NOTE | 2025-01-31 10:20 | A.OFFVIS_ITS ---
Intake Intake Visit Reasons: T2DM Stamping Die Maker Bench Required: No Accompanied by: Self / Same As Patient Allergies levofloxacin (From Levaquin) Allergy (Unknown, Verified 01/31/25 09:14) Hives Penicillins Allergy (Unknown, Verified 01/31/25 09:14) Hives sulfamethoxazole (From Bactrim) Allergy (Unknown, Verified 01/31/25 09:14) Hives trimethoprim (From Bactrim) Allergy (Unknown, Verified 01/31/25 09:14) Hives vancomycin Allergy (Unknown, Verified 01/31/25 09:14) Hives aspirin Adverse Reaction (Unknown, Verified 01/31/25 09:14) Upset GI HPI Comprehensive Diabetes Asmnt Most Recent Diabetes Results: 2 Microalb/Creat Ratio, (<30) 56.1 ug/mg cr H 12/20/24 PFSH Medical History (Updated 12/20/24 @ 09:34 by Nas Vance MD) Type 2 diabetes mellitus Surgical History History of colonoscopy History of surgery Hx of bilateral mastectomy History of bilateral tubal ligation Family History Mother Heart disease Father No problems noted. Sister Cancer Social History Alcohol intake: never Patient Tobacco Use Status: Never used Tobacco Assessment & Plan Assessment & Plan (1) Type 2 diabetes mellitus: Code(s): E11.9 - Type 2 diabetes mellitus without complications Plan: Diabetes self-management education and support participation record Assessment/scale: 1= needs instructed? 2= needs review? 3= comprehend keep point? 4= demonstrates understanding/ competent? NC= Not Covered Topics Learning Objective: Initial visit Initial or post srvc Initial or post srvc Initial or post srvc Initial or post srvc Initial or post srvc Post srvc Comments Pre Edu-assessment/plan Outcome or reassess O utcome or reassess Outcome or reassess Outcome or reassess Outcome or reassess Outcome or reassess Diabetes pathophysiology 1 Healthy eating 1 Being active 1 Taking medication 1 Monitoring glucose 1 Acute complication 1 Chronic complicated 1 Lifestyle and healthy coping 1 Diabetes distress in support 1 ?Diabetes pathophysiology: ?Defined diabetes med identify own type of diabetes; list 3 options for treating diabetes Healthy eating: ?Described effect of type, amount and ?timing of food on blood glucose; list 3 methods for planning meal Being active: ?State effect of exercise on blood glucose level Taking medication: ?State effect of diabetes medications on diabetes; name diabetes medications taking, action and side effects Monitoring glucose: ?Identify recommended blood glucose targets and personal target Acute complication: ?List symptoms and treatment of hyper and hypoglycemia, DKA, sick day guidelines and guidelines for severe weather or situations of crisis and diabetes supply manage Chronic complication: ?To find the relationship of blood glucose levels to long- term complications of diabetes in screening and preventative measures Lifestyle and healthy coping: ?Described lifestyle and healthy coping strategies to rule out diabetes self-management Diabetes to stress and support: ?Recognize Diabetes to stress and be able to identified support options Learning objectives: The patient was provided with verbal and written education on the following topics as outlined below. The patient met all learning objectives and was able to verbalize understanding and provide teach back of education topics discussed . The patient was provided with the opportunity to ask questions and all questions were answered. Patient Assessment Assess patient education level/literacy/barriers, patient's A1c on 12/20/2024 10.4%. Patient is currently taking metformin ER 1000 mg daily, although she is prescribed 1500 mg daily she reports 1500 causes her to have stomach pain At today's visit with provider Mounjaro was increased to 10 mg weekly, Toujeo max was increased to 70 mg daily Patient reports she recently lost her dog a 15 years so she has been feeling very sad She reports that she does not eat large portions of carbohydrates Patient may benefit from rapid acting insulin before meals What is Diabetes? Pathophysiology How the body produces and uses insulin Identify type of DM Risk factors Signs of Diabetes Brief overview of Diabetes Management Monitoring blood sugar Following a meal plan Regular exercise Maintaining a healthy weight Taking medication as needed Members of the care team (PCP, RN, MA, RD, CDE, telesales manager) Blood glucose monitoring When/how often to test Target blood sugar ranges Introduction to Nutrition Importance of healthy diet in managing DM Diet is personalized to individual preference Review patient?s regular diet/food preferences Who prepares meals/does food shopping/ Dining out?/ Barriers? How diet effects glucose Eating 3 balanced meals a day with small, healthy snacks between meals Review food groups Carbohydrates: What is a carbohydrate/Which food/food groups are considered carbohydrates Effect of carbohydrates on blood glucose Portion sizes Reading food labels Basic carb counting (if applicable per nursing assessment) Plate method Meal planning Recommendations: Follow plate method, consistent carbs and read nutritional labels. Smart Goal: Identify current foods and meal plan that contain carbohydrates Educational Materials: The patient was provided with the following written educational materials: Planning Healthy Meals Handout Patient Response to instructions: Comprehension of Instructions: Fair Readiness to make changes: Contemplation How confident they feel about making changes: Fair Portions of this note were created using voice recognition software, please excuse any words or phrases that may have been misinterpreted. Medications: Discontinued 2 tirzepatide (Mounjaro) Discontinued Reason: Doctor's Order 10 mg (0.6667 mL) subcut QWEEK 6 mL 4RF Patient Instructions: Include regular daily activity. ADA recommends 30 minutes of exercise 5 days a week. Weight loss talk to PCP or Winch Stripper before starting new plan. Test blood sugar as directed; Fasting and 2hpp largest meal. Watch trends in results. Utilize results and to assess how food, physical activity and medications affect blood sugar results. Bring glucometer or CGM to next visit. Be knowledgeable about diabetes medication, its action, side effects, efficacy, toxicity, prescribed dosage, appropriate timing and frequency of administration, effect of missed and delayed doses and instructions for storage, travel and safety. Problem solving techniques to monitor hypo/hyperglycemia episodes and treatments. Reduce risk reduction behaviors, smoking cessation, regular eye, foot and dental examinations. Coding Level of Care Code Est Pt Level 1 (73016) Diagnoses Type 2 diabetes mellitus E11.9
== END 2025-01-31 11:06 | disposition home or self-care (01) ==
LOC: HO.ENCR 09:08
PROVIDERS: PCP Physician Assistant; Visit Provider Registered Nurse Diabetes Educator
DX: E11.9 Type 2 diabetes mellitus without complications (principal)

== ENCOUNTER → 2025-01-31 09:07 | Outpatient (BNVA) | payer MEDICARE, BC, SELFPAY | PROVIDERS: PCP Physician Assistant; Visit Provider Internal Medicine Endocrinology, Diabetes & Metabolism | DX: E11.9 Type 2 diabetes mellitus without complications (principal); Z79.4 Long term (current) use of insulin | CPT/HCPCS: 82947; 99211; 99212 ==

== ENCOUNTER 2025-02-13 12:51 | Outpatient (AMB) | payer MEDICARE, BC, SELFPAY ==
[2025-02-13 13:18] VITALS: BMI 29.4
--- NOTE | 2025-02-13 13:18 | A.OFFVIS_ITS ---
VS Expanded 02/13/25 13:18 02/14/25 20:45 Height 5 ft 1 in 5 ft 1 in Weight 155 lb 13.869 oz 156 lb BMI 29.4 29.5 Intake Visit Reasons: T2DM Allergies levofloxacin (From Levaquin) Allergy (Unknown, Verified 01/31/25 09:14) Hives Penicillins Allergy (Unknown, Verified 01/31/25 09:14) Hives sulfamethoxazole (From Bactrim) Allergy (Unknown, Verified 01/31/25 09:14) Hives trimethoprim (From Bactrim) Allergy (Unknown, Verified 01/31/25 09:14) Hives vancomycin Allergy (Unknown, Verified 01/31/25 09:14) Hives aspirin Adverse Reaction (Unknown, Verified 01/31/25 09:14) Upset GI Nutrition Presentation Details: Pt presents for MNT for T2DM Pt reports limited vegetables and other foods related to concerns of hx of diverticulitis . Reports lack of understanding regarding relationship of protein/carb and BG Food frequency fruits: 0-1/d fish : not including ve-1/wk dairy : 2/d beverages: water, light juices, tea, coffee Physical activity : ADL ETOH/smoking : denies A1c at 10.4% on 12/31 BS Monitoring Most Recent Diabetes Results: Microalb/Creat Ratio, (<30) 56.1 ug/mg cr H 12/20/24 WFI-Adcaels-Cf.Jeor Equation Height: 5 ft 1 in Weight: 156 lb Resting Metabolic Rate: 1169.87 Calculated Activity Level: Sedentary Calories Needed to Maintain Weight: 1403.84 Diagnosis Nutrition problem #1: food nutri know defi As related to (etiology) #1: diagnosis As evidenced by (sign/symptom) #1: knowledge deficit of diet [facility] Medical History (Updated 12/20/24 @ 09:34 by Nas Vance MD) Type 2 diabetes mellitus Surgical History History of colonoscopy History of surgery Hx of bilateral mastectomy History of bilateral tubal ligation Family History Mother Heart disease Father No problems noted. Sister Cancer Social History Alcohol intake: never Patient Tobacco Use Status: Never used Tobacco Assessment & Plan Assessment & Plan (1) Type 2 diabetes mellitus: Code(s): E11.9 - Type 2 diabetes mellitus without complications Category: Medical Plan: current wt: 71 kg ( 03/02 ) est kcal needs as per MSJ: 1400 est protein needs as per 1 g/kg BW: 70 est fluid needs as per 30 ml/kg BW: 2100 Recommended fiber > 12 g /day and gradually increase up to 25-28 g /day or as tolerated Nutrition topics discussed : Reviewed (R), Pt verbalized understanding (V) , not applicable (N/A) R, : Healthy Plate Method Concept: R, : Carbohydrates: food sources of carbohydrates, relationship of carbohydrates to blood glucose, fatty liver GI health. Recommended total amount of carbohy drates per meals and snack. Differences between simple carbohydrates and complex carbohydrates R, : Lean protein foods including vegan , vegetarian sources of protein. Benefits of protein (including but not limited to healing, nutritional value , benefits in weight loss, glucose control R, V, N/A: Fats : Source of fats, benefits of fats. Difference between saturated and unsaturated fats. Saturated fats and its contribution to inflammation R, V, N/A: Fiber: food sources and role of fiber in the diet (including but not limited to its role as a prebiotic, benefits in constipation, role in IBS , role in glucose control and cholesterol level) R, V, N/A: Hydration: role of hydration and prevention of dehydration or over hydration. Foods and water content. R, V, N/A: Vitamins and Minerals in foods and supplements R, V, N/A: Interpreting food labels, including serving size, macronutrients, vitamins, minerals, allergens, ingredient list , % daily value REVIEWED: choosing cooked, mashed/pureed vegetables to add fiber to your meals Patient Instructions: Combine protein with the meal : example 1 pancake vs 2 and add and egg as your protein for breakfast Include fiber rich foods in your evening meal by following healthy plate method next visit will discuss carb counting concept Coding Level of Care Code Nutr Indiv Intake (50540) Diagnoses Type 2 diabetes mellitus E11.9 Time Spent (min) 30
[2025-02-14 20:45] VITALS: BMI 29.5
== END 2025-02-13 13:51 | disposition home or self-care (01) ==
LOC: HO.ENCR 12:52
PROVIDERS: PCP Physician Assistant; Visit Provider Dietitian, Registered
DX: E11.9 Type 2 diabetes mellitus without complications (principal)

== ENCOUNTER → 2025-02-13 12:51 | Outpatient (BNVA) | payer BC, MEDICARE, SELFPAY | PROVIDERS: PCP Physician Assistant; Visit Provider Dietitian, Registered | DX: E11.9 Type 2 diabetes mellitus without complications (principal); Z71.3 Dietary counseling and surveillance | CPT/HCPCS: 97802 ==

== ENCOUNTER 2025-02-28 13:24 | Outpatient (AMB) | payer BC, MEDICARE, SELFPAY ==
--- OUTSIDE RECORDS SUMMARY | 2024-07-11 09:00 | XMS_ITS ---
Author Organization [facility] [address] Address [address] [place] [address] Care Team Providers Care Punchboard Assembler Name Role Phone VirginiaXiomara deal Unavailable [phone] Encounters Encounter Location Date Provider Diagnosis [facility] [address] [facility] [address] [place] [address] 07/11/2024 Xiomara Dean Plan Of Treatment Next Appt Details Provider Name:Xiomara Dean, 1 06/19/2024 01:30:00 PM, [address] [facility], [facility] [address], [place], [address], Progress Notes * UYEN MORANOB:1955 (69 yo F)Acc No.[id number]:07/11/2024 Progress Notes Patient: LEE HAJI Provider: Randi Dean PA-C :1955 A ge:68 Y S ex:Female Date:07/11/2024 Address:[address] [place], [place] [phone] Subjective: * Chief Complaints: * * Medical History: Objective: * Vitals: Assessment: Plan: * Treatment: * Images: Billing Information: * Visit Code: * Procedure Codes: Care Plan Details* * Electronic signature of Xiomara Dean PA-C on 02/28/2025 at 04:59 PM EDT Sign off status: Pending * Provider: Randi Dean PA-C Date: 0 07/11/2024 Generated for Kaity fernandes/Kelsey/eTransmitting on: 1 04:59 PM EDT
--- OUTSIDE RECORDS SUMMARY | 2024-07-25 10:00 | XMS_ITS ---
Author Organization [facility] [address] Address [address] [place] [address] Care Team Providers Care Program Eligibility Specialist Name Role Phone VirginiaXiomara deal Unavailable [phone] Encounters Encounter Location Date Provider Diagnosis [facility] [address] [facility] [address] [place] [address] 07/25/2024 Xiomara Dean Plan Of Treatment Next Appt Details Provider Name:Xiomara Dean, 1 06/19/2024 01:30:00 PM, [address] [facility], [facility] [address], [place], [address], Progress Notes * UYEN MORANOB:1955 (69 yo F)Acc No.[id number]:07/25/2024 Progress Notes Patient: LEE HAJI Provider: Randi Dean PA-C :1955 A ge:68 Y S ex:Female Date:07/25/2024 Address:[address] [place], [place] [phone] Subjective: * Chief Complaints: * * Medical History: Objective: * Vitals: Assessment: Plan: * Treatment: * Images: Billing Information: * Visit Code: * Procedure Codes: Care Plan Details* * Electronic signature of Xiomara Dean PA-C on 02/28/2025 at 04:59 PM EDT Sign off status: Pending * Provider: Randi Dean PA-C Date: 0 07/25/2024 Generated for Kaity fernandes/Kelsey/eTransmitting on: 1 04:59 PM EDT
--- NOTE | 2025-02-28 13:57 | A.OFFVIS_ITS ---
Intake Intake Visit Reasons: Dexcom setup Inbound Customer Service Representative Required: No Accompanied by: Self / Same As Patient Allergies levofloxacin (From Levaquin) Allergy (Unknown, Verified 01/31/25 09:14) Hives Penicillins Allergy (Unknown, Verified 01/31/25 09:14) Hives sulfamethoxazole (From Bactrim) Allergy (Unknown, Verified 01/31/25 09:14) Hives trimethoprim (From Bactrim) Allergy (Unknown, Verified 01/31/25 09:14) Hives vancomycin Allergy (Unknown, Verified 01/31/25 09:14) Hives aspirin Adverse Reaction (Unknown, Verified 01/31/25 09:14) Upset GI HPI Comprehensive Diabetes Asmnt Most Recent Diabetes Results: 2 Microalb/Creat Ratio, (<30) 56.1 ug/mg cr H 12/20/24 PFSH Medical History (Updated 12/20/24 @ 09:34 by Nas Vance MD) Type 2 diabetes mellitus Surgical History History of colonoscopy History of surgery Hx of bilateral mastectomy History of bilateral tubal ligation Family History Mother Heart disease Father No problems noted. Sister Cancer Social History Alcohol intake: never Patient Tobacco Use Status: Never used Tobacco Assessment & Plan Assessment & Plan (1) Type 2 diabetes mellitus: Code(s): E11.9 - Type 2 diabetes mellitus without complications Plan: Patient at visit to transition from Dexcom G6 to Dexcom G7 Patient's glucose running well above target Patient denies forgetting or missing any doses of diabetes medications Reports eating moderate to small portions at meals Denies drinking fruit juice or regular soda Patient is currently taking metformin 1500 mg daily Toujeo max U 300 70 units daily Mounjaro 10 mg weekly Patient has upcoming visit with Dr. Vance in April 2025, reviewed with patient that she may need to start rapid acting insulin before meals. At visit with Dr. Vance he had mentioned her starting an insulin pump, patient reports she is not interested in insulin pump therapy. CGM is the reading of glucose in the interstitial fluid not actual blood glucose, finger sticks are still necessary when Pt's symptom?s do not match sensor reading and if sensors prompts Pt to do a fingerstick Instructed patient sensors water proof you can shower, or swim do not submerge sensor in water for over 30 minutes Is sensor falls off cannot put back in you need to replace sensor, customer service number given to patient for sensor replacement Sensor placed on the back of left arm Patient left visit with sensor in warmup Reviewed how to interpret trend arrows Discussed lag time between finger stick and sensor data.? Instructed patient the importance of having blood glucometer for backup testing if needed Reviewed delay of CGM from fingersticks Reminded Pt that if symptoms do not match sensor still needs to check fingersticks. Portions of this note were created using voice recognition software, please excuse any words or phrases that may have been misinterpreted. Patient Instructions: Patient instruction: CGM provides information on blood glucose control throughout the day, including hyperglycemia and hypoglycemia. ? Continue to monitor blood glucose as instructed. Follow nutrition guidelines provided. Report any discomfort promptly to health care provider. ?Stay well-hydrated. You can bathe ,shower, swim and exercise while wearing the glucose sensor. Do not submerge glucose sensor in water for more than 30 minutes. Coding Level of Care Code Est Pt Level 1 (01204) Diagnoses Type 2 diabetes mellitus E11.9
--- OUTSIDE RECORDS SUMMARY | 2025-02-28 16:59 | XMS_ITS | Clinical Summary ---
Author Organization [facility] Address [address] [place] [address] Care Team Providers Care Welt Edge Rounder Name Role Phone Marina Jesus MD Primary Care Provider [phone] Allergies Active Allergy Reactions Criticality Noted Date [...] age to complete this topic Care Teams Welt Edge Rounder Relationship Specialty Start Date End Date Marina Jesus MD PCP - General Internal Medicine 03/28/17
--- OUTSIDE RECORDS SUMMARY | 2025-02-28 16:59 | XMS_ITS | Clinical Summary ---
Author Organization [address] [place] [address] Address [address] [place] [address] Phone Care Team Providers Care Tobacco Stripper Name Role Phone Fei Bowman MD Primary Care Provider [phone] Allergies Active Allergy Reactions Criticality Noted Date [...] mononeuropathy, without long-term current use of insulin ([facility] V24, [facility] V28) 08/19/2017 Breast cancer ([facility] V24, [facility] V28) 016 Overview (02/23/2024): Bilateral mastectomy. Follows with Dr. Rey. CTS (carpal tunnel syndrome) 02/19/2014 Hyperlipidemia with target LDL less than 100 Overview (02/23/2024): IMO update Diabetes mellitus with renal complications ([facility] V24, [facility] V28) 05/11/2011 DCIS (ductal carcinoma in situ) of breast 2009 Overview (02/23/2024): By biopsy 09/2009 had two surgical removal and now radiation Benign neoplasm of duodenum, jejunum, and ileum 03/17/2009 HTN (hypertension), benign 02/12/2009 Immunizations Immunization Administration Dates Next Due PPD Test 09/01/2015, [...] HISTORICAL TUBAL LIGATION OTHER SURGICAL HISTORY PROCEDURE: LA REPOSITIONING IO LENS PROSTHESIS REQ INC SPX; COMMENT: left eye ESOPHAGOGASTRODUODENOSCOPY 2006 PROCEDURE: LA ESOPHAGOGASTRODUODENOSCOPY TRANSORAL DIAGNOSTIC; COMMENT: duodenal adenoma. ESOPHAGOGASTRODUODENOSCOPY 07/14 PROCEDURE: LA ESOPHAGOGASTRODUODENOSCOPY TRANSORAL DIAGNOSTIC; COMMENT: normal; repeat in 07/2012 ESOPHAGOGASTRODUODENOSCOPY 08.20.13 PROCEDURE: LA EGD TRANSORAL BIOPSY SINGLE/MULTIPLE; COMMENT: normal, with nl duodenal biopsies COLONOSCOPY 09/14 [place] PROCEDURE: LA COLONOSCOPY STOMA DX INCLUDING COLLJ SPEC SPX; COMMENT: has polyps repeat in 2011; diverticulosis and hemorrhoids COLONOSCOPY 10/02/10 PROCEDURE: LA COLONOSCOPY STOMA DX INCLUDING COLLJ SPEC SPX; COMMENT: adenomas, tics and hemorrhoids; repeat in three years COLONOSCOPY 08/20/13 PROCEDURE: LA COLONOSCOPY STOMA W/RMVL JAMIE POLYP/OTH LES SNARE; [...] Status Comments Father ?internal bleed Mother with NH at age 27 Sister dx'd age 60 Alive Social History Tobacco Use Types Packs/Day Years Used Date Smoking Tobacco: Former Cigarettes 0 09/08/1979 - 05/09/1988 Smokeless Tobacco: Never Alcohol Use Standard Drinks/Week Comments No 0 (1 standard drink = 0.6 oz pur e alcohol) Interpersonal Safety Answer Date Record ed Physical Abuse Unrecognized value 07/26/2024 Verbal Abuse Unrecognized value 07/26/2024 Comments Unknown Sex and Gender Information [...] RSV Immunization Adult Patients (1 - Risk 50-74 years 1-dose series) 2004 Pneumococcal Vaccine: 50+ Years (2 of 2 [...] with diabetic mononeuropathy (CMS/HCC V24, CMS/HCC V28) HEPATITIS C SCREENING Routine 11/08/2012 from Last 3 Months or Most Recently Relevant to Health Maintenance Results * (ABNORMAL) Urinalysis with reflex microscopic (01/24/2025 1:29 PM EDT) Specific Williamson Urine 1.024 1.003 - 1.030 LAB URINALYSIS - AUTOMATED METHOD 01/24/2025 2:59 PM EDT [facility] pH, Urine 5.5 5.0 - 8.0 pH LAB URINALYSIS - AUTOMATED METHOD 01/24/2025 2:59 PM [facility] Leukocytes, Urine Trace(A) Negative LAB URINALYSIS - AUTOMATED METHOD 01/24/2025 2:59 PM [facility] Nitrite, Urine Negative Negative LAB URINALYSIS - AUTOMATED METHOD 01/24/2025 2:59 PM [facility] Protein, Urine Trace <=Trace mg/dL LAB URINALYSIS - AUTOMATED METHOD 01/24/2025 2:59 PM [facility] Glucose, Urine Negative Negative mg/dL LAB URINALYSIS - AUTOMATED METHOD 01/24/2025 2:59 PM [facility] Ketones, Urine Trace(A) Negative mg/dL LAB URINALYSIS - AUTOMATED METHOD 01/24/2025 2:59 PM [facility] Urobilinogen, Urine 1.0 0.2 - 1.0 mg/dL LAB URINALYSIS - AUTOMATED METHOD 01/24/2025 2:59 PM [facility] Bilirubin, Urine Negative Negative LAB URINALYSIS - AUTOMATED METHOD 01/24/2025 2:59 PM [facility] Blood, Urine Negative Negative LAB URINALYSIS - AUTOMATED METHOD 01/24/2025 2:59 PM [facility] RBC, Urine 2.2 0 - 4 /HPF LAB URINALYSIS - AUTOMATED METHOD 01/24/2025 2:59 PM [facility] WBC, Urine 3.9 0 - 4 /HPF LAB URINALYSIS - AUTOMATED METHOD 01/24/2025 2:59 PM [facility] Squamous Epithelial, Urine 62(H) 0 - 60 /LPF LAB URINALYSIS - AUTOMATED METHOD 01/24/2025 2:59 PM [facility] Bacteria, Urine Negative Negative /HPF LAB URINALYSIS - AUTOMATED METHOD 01/24/2025 2:59 PM [facility] Hyaline Casts, Urine 1.6 0 - 3 /LPF LAB URINALYSIS - AUTOMATED METHOD 01/24/2025 2:59 PM EDT [facility] Urine Urine specimen obtained by clean catch procedure / Unknown Non-blood Collection / Unknown 01/24/2025 1:29 PM EDT 01/24/2025 2:47 PM EDT [facility] URINE ORDERABLES Final Resul t Performing Organization Address [facility]/ZIP Co de Phone Number [facility] [address] [place] [address], [place] [phone] * Culture urine (01/24/2025 1:29 PM EDT) Culture, Urine <10,000 CFU/mL gram positive cocci, insignificant count, no further workup 01/25/2025 12:16 PM EDT [facility] Urine Urine specimen from urethra / Unknown Non-blood Collection / Unknown 01/24/2025 1:29 PM EDT 01/24/2025 2:48 PM EDT [facility] MICROBIOLOGY - GENERAL ORDER [place] Final Result Performing Organization Address [facility] de Phone Number [facility] [address] [place] [address], [place] [phone] * (ABNORMAL) Microalbumin creatinine urine ratio (09/19/2024 7:52 AM EDT) Creatinine, Urine 234.0 mg/dL LAB CHEMISTRY METHOD 09/19/2024 9:00 AM EDT [facility] Microalb, Ur 69.1(H) 0.0 - 29.0 mg/L LAB CHEMISTRY METHOD 09/19/2024 9:00 AM EDT [facility] Microalb/Crea t Ratio 30(H) <30 mg/g creat LAB CHEMISTRY METHOD 09/19/2024 9:00 AM EDT [facility] Urine Urine specimen obtained by clean catch procedure / Unknown Non-blood Collection / Unknown 09/19/2024 7:52 AM EDT 09/19/2024 7:57 AM EDT us Fei Bowman MD LAB URINE ORDERABLES Final Resul t [facility] [address] [place] [address], [place] [phone] * (ABNORMAL) Lipid panel with reflex to direct LDL (09/19/2024 7:46 AM EDT) Cholesterol 131 0 - 200 mg/dL LAB CHEMISTRY METHOD 09/19/2024 8:43 AM [facility] Triglycerides 181(H) 0 - 150 mg/dL LAB CHEMISTRY METHOD 09/19/2024 8:43 AM [facility] HDL 46 >=40 mg/dL LAB CHEMISTRY METHOD 09/19/2024 8:43 AM [facility] LDL Calculated 49 0 - 100 mg/dL LAB CHEMISTRY METHOD 09/19/2024 8:43 AM [facility] VLDL Cholesterol Pan 36.2 mg/dL LAB CHEMISTRY METHOD 09/19/2024 8:43 AM [facility] Non HDL Chol. (LDL+VLDL) 85 <145 mg/dL LAB CHEMISTRY METHOD 09/19/2024 8:43 AM EDT [facility] Chol/HDL Ratio 2.8 0.0 - 4.4 LAB CHEMISTRY METHOD 09/19/2024 8:43 AM [facility] Blood Venous blood specimen / Unknown Venipuncture / Unknown 09/19/2024 7:46 AM EDT 09/19/2024 7:57 AM EDT us Fei Bowman MD LAB BLOOD ORDERABLES Final Resul t Performing Organization Address [facility] Co de Phone Number [facility] [address] [place] [address], * (ABNORMAL) Hemoglobin A1c (09/19/2024 7:46 AM EDT) Pathologist [facility] Hemoglobin A1C 10.2(H) <6.5 % LAB CHEMISTRY METHOD 09/19/2024 10:39 AM EDT [facility] Mean Bld Glu Estim. 246 mg/dL LAB CHEMISTRY METHOD 09/19/2024 10:39 AM EDT [facility] Blood Venous blood specimen / Unknown Venipuncture / Unknown 09/19/2024 7:46 AM EDT 09/19/2024 7:57 AM EDT Fei Bowman MD LAB BLOOD ORDERABLES Final Resul t Performing Organization Address [facility]/ZIP Co de Phone Number [facility] [address] [place] [address], [place] [phone] * (ABNORMAL) Comprehensive metabolic panel (09/19/2024 7:46 AM EDT) [facility] Sodium 136 133 - 145 mmol/L LAB CHEMISTRY METHOD 09/19/2024 8:43 AM EDT [facility] Potassium 4.4 3.5 - 5.5 mmol/L LAB CHEMISTRY METHOD 09/19/2024 8:43 AM EDT [facility] Chloride 105 96 - 110 mmol/L LAB CHEMISTRY METHOD 09/19/2024 8:43 AM EDT [facility] CO2 24 21 - 32 mmol/L LAB CHEMISTRY METHOD 09/19/2024 8:43 AM EDT [facility] Anion Gap 7 3 - 11 LAB CHEMISTRY METHOD 09/19/2024 8:43 AM EDT [facility] Glucose 208(H) 70 - 100 mg/dL LAB CHEMISTRY METHOD 09/19/2024 8:43 AM [facility] BUN 9 5 - 25 mg/dL LAB CHEMISTRY METHOD 09/19/2024 8:43 AM [facility] Creatinine 0.88 0.50 - 1.10 mg/dL LAB CHEMISTRY METHOD 09/19/2024 8:43 AM [facility] eGFR 71 >=60 mL/min/1. 73m2 LAB CHEMISTRY METHOD 09/19/2024 8:43 AM [facility] Comment:Calculation based on the Chronic Kidney Disease Epidemiology Collaboration (CKD-EPI) equation refit without adjustment for race. BUN/Creatinine Ratio 10.2 LAB CHEMISTRY METHOD 09/19/2024 8:43 AM [facility] Calcium 9.9 8.5 - 10.5 mg/dL LAB CHEMISTRY METHOD 09/19/2024 8:43 AM [facility] AST (SGOT) 24 10 - 42 unit/L LAB CHEMISTRY METHOD 09/19/2024 8:43 AM [facility] ALT (SGPT) 39 10 - 60 unit/L LAB CHEMISTRY METHOD 09/19/2024 8:43 AM [facility] Alkaline Phosphatase 113 42 - 121 unit/L LAB CHEMISTRY METHOD 09/19/2024 8:43 AM [facility] Total Protein 7.1 6.0 - 8.0 g/dL LAB CHEMISTRY METHOD 09/19/2024 8:43 AM [facility] Albumin 3.8 3.2 - 5.0 g/dL LAB CHEMISTRY METHOD 09/19/2024 8:43 AM [facility] Total Bilirubin 1.0 0.0 - 1.4 mg/dL LAB CHEMISTRY METHOD 09/19/2024 8:43 AM [facility] Blood Venous blood specimen / Unknown Venipuncture / Unknown 09/19/2024 7:46 AM EDT 09/19/2024 7:57 AM EDT us Fei Bowman MD LAB BLOOD ORDERABLES Final Resul t [facility] [address] [place] [address], * COLONOSCOPY Anesthesia - MAC; [facility] ENDOSCOPY (07/26/2024 9:43 AM EDT) Anatomical Region Laterality Modality Endoscopy 07/26/2024 9:19 AM EDT Impressions 07/26/2024 9:44 AM EDT - One 8 mm polyp in the ascending colon, removed with a cold snare. Resected and retrieved. - One 8 mm polyp in the transverse colon, removed with a cold snare. Resected and retrieved. Clips were placed. Clip gambling floor supervisor: MoPals. - Diverticulosis in the entire examined colon. - Internal hemorrhoids. - The examination was otherwise normal. Recommendation: - Await pathology results. - Repeat colonoscopy is recommended for surveillance. The colonoscopy date will be determined after pathology results from today's exam become available for review. Narrative 07/26/2024 9:44 AM EDT [facility] Patient Name: Alexandria Moran Procedure Date: [...] verified by the physician, the nurse, the edger saw operator and the software support technician in the pre-procedure area in the [...] two hemostatic clips were successfully placed. Clip gambling floor supervisor: MoPals. There was no bleeding at the end of the procedure. Many small and large-mouthed diverticula were found in the entire colon. Internal hemorrhoids were found during retroflexion. The hemorrhoids were Grade I (internal hemorrhoids that do not prolapse). The exam was otherwise without abnormality. Procedure Code(s): --- Professional --- 47977, Colonoscopy, flexible; with removal of tumor(s), polyp(s), or other lesion(s) by snare technique Diagnosis Code(s): --- Professional --- D12.2, Benign neoplasm of ascending colon D12.3, Benign neoplasm of transverse colon (hepatic flexure or splenic flexure) CPT copyright 2020 [employer]. All rights reserved. The codes documented in this report are preliminary and upon eyeglass cutter review may be revised to meet current compliance requirements. Ne Garcia MD 07/26/2024 9:44:23 AM This report has been signed electronically.Ne Garcia MD Number of Addenda: 0 Note Initiated On: 07/26/2024 9:19 AM Scope Withdrawal Time: 0 hours 15 minutes 36 seconds Scope In: 9:23:50 AM Scope Out: 9:42:31 AM Endoscopy Department at [facility] - [address] [place] [id number] Procedure Note Ne Garcia MD - 07/26/2024 [facility] Patient Name: Alexandria Moran Procedure Date: [...] the physician, the nurse, theanesthetist and the software support technician in the pre-procedure area in the [...] two hemostatic clips were successfully placed. Clip gambling floor supervisor: MoPals. There was nobleeding at the end of the procedure. Many small and large-mouthed diverticula were foundin the entire colon. Internal hemorrhoids were found duringretroflexion. The hemorrhoids were Grade I (internal hemorrhoids that do not prolapse). The exam was otherwise without abnormality. Procedure Code(s): --- Professional --- 93006, Colonoscopy, flexible; with removal of tumor(s), polyp(s), or other lesion(s) by snare technique Diagnosis Code(s): --- Professional --- D12.2, Benign neoplasm of ascending colon D12.3, Benign neoplasm of transverse colon (hepatic flexure or splenic flexure) CPT copyright 2020 [employer]. All rights reserved. The codes documented in this report are preliminary and upon eyeglass cutter reviewmay be revised to meet current compliance requirements. Ne Garcia MD 07/26/2024 9:44:23 AM This report has been signed electronically.Ne Garcia MD Number of Addenda: 0 Note Initiated On: 07/26/2024 9:19 AM Scope Withdrawal Time: 0 hours 15 minutes 36 seconds Scope In: 9:23:50 AM Scope Out: 9:42:31 AM Endoscopy Department at [facility] - [address] [place] [phone] IMPRESSION: - One 8 mm polyp in the ascending colon, removed with a cold snare. Resected and retrieved. - One 8 mm polyp in the transverse colon, removedwith a cold snare. Resected and retrieved. Clips were placed. Clip gambling floor supervisor: MoPals. - Diverticulosis in the entire examined colon. [...] (World Health Organization Fracture Risk Assessment) [facility] Department of Internal Medicine [...] alternative screening schedule based on hernandez Gomez., [facility] May 27, 2011 for patients with osteopenia [...] years. (World HealthOrganization Fracture Risk Assessment) [facility] Department of Internal Medicine [...] alternative screening schedule based on [facility]andez [facility]., [facility] for [facility] with [facility] (based on hip BMD T-score) is as follows: * advanced osteopenia (T scores -2.00 to -2.49), BMD testing every year * moderate osteopenia (T scores -1.50 to -1.99), BMD testing every 5years mild osteopenia or normal BMD (T scores -1.50 and higher), BMD testingevery 15 years Corky Garcia MD IM DXA PROCEDURES Final Result * Hepatitis C Screening (11/08/2012) [facility] Hepatitis C Screening Abstracted Historical Provider HEALTH MAINTENANCE Final Result from Last 3 Months or Most Recently Relevant to Health Maintenance Insurance MEDICARE [facility]) Advance Directives Documents on File Type Date Recorded Patient Director Game Expl anation Health Care Decision (hx) 11/17/2015 [...] (hx) 11/17/2015 AD MARIN DIRECTIVE Care Teams Tobacco Stripper Relationship Specialty Start Date End Date Fei Bowman MD [address] [place] [id number] PCP - General Internal Medicine 07/26/24
--- OUTSIDE RECORDS SUMMARY | 2025-02-28 17:00 | XMS_ITS | Continuity of Care Document ---
Author Organization [facility] Address [address] [address] [place] [address] Phone [phone] Social History Type Date Description Comments Sex Female Sex Unknown Medical Devices Description No Information Available Encounters Description No Information Available Assessments Description No Information Available Plan of Treatment No Information Available Functional Status Description No Information Available Mental Status Description No Information Available Referrals Description No Information Available
--- OUTSIDE RECORDS SUMMARY | 2025-02-28 17:00 | XMS_ITS | Patient Health Record ---
Author Organization [facility] Address [address] [place] [address] Care Team Providers Care Mica Plate Layer Name Role Phone Xiomara Dean Unavailable [phone] BARBARA BOWMAN Unavailable [phone] MARQUISE GODOY Unavailable [phone] Allergies Allergen (clinical drug ingredient) Drug/Non Drug Allergy documented on EMR Reaction Allergy Type Onset Date Status sulfamethoxazole / trimethoprim Bactrim Unknown Drug Allergy Active Levaquin Unknown Drug Allergy Active aspirin Aspirin Unknown Drug Allergy Active Penicillin Unknown Drug Allergy Active vancomycin Vancomycin Unknown Drug Allergy Activ e Results Component Value Reference Range Notes CULTURE URINE Reviewed date:01/28/2025 01:00:33 PM Interpretation: Performing Lab: Notes/Report: Culture, Urine <10,000 CFU/mL gram positive cocci, insignificant count, no further workup URINALYSIS WITH REFLEX MICRO SCOPIC Reviewed date:01/28/2025 01:00:47 PM Interpretation: Performing Lab: Notes/Report: Specific [facility] [place] Urine 1.024 1.003-1.030 pH, Urine 5.5 5.0-8.0 [...] /HPF Hyaline Casts, Urine 1.6 0-3 /LPF MICROALBUMIN CREATININE URIN E RATIO Reviewed date:09/24/2024 [...] and paraffin embedded. Reason For Referral Reason [facility]; [facility] ontrolled diabetes Diagnosis 1 Uncontrolled type 2 diabetes mellitus with hyperglycemia (E11.65) Referral Organization [facility] [address] Referring Provider First Name Xiomara Ref[facility] Referring Provider Speciality Internal edicine Referred Provider Specialty Podiatry General Notes [address] [facility] [place], (p) [phone], (f) [phone] Clinical Notes Marlsy Mcfarlane 02:46:33 PM > referral faxed with attachments Referral Priority Routine Reason [facility]; uncontr olled diabetes Diagnosis 1 Uncontrolled type 2 diabetes mellitus with hyperglycemia (E11.65) Referral Organization [facility] [address] Referring Provider First Name Xiomara Referring Provider Last Name Svrcek Referring Provider Speciality Internal edicine Referred Provider Specialty Nutrition General Notes (p) [phone], (f ) [phone] Clinical Notes Laverne Hamlin 10/08 10:14:51 AM >, insurance out of network will refer to alternative place Referral Priority Routine Reason uncontrolled diabete s Diagnosis 1 Type 2 diabetes clint itus with unspecified complications (E11.8) Referral Organization [facility] [address] Referring Provider First Name Xiomara Referring Provider Last Name Svreltonk Referring Provider Speciality Internal edicine Referred Provider Specialty Unknown General Notes [facility], [address] [place] [address], [address], [place] [address], phone- [phone], fax- [phone] Clinical Notes Laverne Hamlin 10/08 10:31:45 AM >, referral faxed, Ryne Gonzalez 10/12/2024 02:53:48 PM > refaxed to [phone], Ryne Gonzalez 10/23/2024 03:40:30 PM > Scheduled for 11/08 at [address] Vance. Pt aware Referral Priority Routine Medications Medication SIG (Take, Route, Frequency, Duration) Notes Start Date End Date Status Atorvastatin Calcium 20 MG TAKE 1 TABLET BY MOUTH EVERY DAY; Duration: 90 Active Esomeprazole Magnesium 20 MG TAKE 1 CAPSULE 1/2 TO 1 HOUR BEFORE MORNING MEAL ORALLY ONCE A DAY 90 DAYS; Duration: 90 Active Valsartan 80 MG TAKE 1 TABLET BY VERONIQUE TH EVERY DAY; Duration: 90 Active Metoprolol Succinate ER 25 MG TAKE 1 TABLET BY MOUTH EVERY DAY FOR 30 DAYS; Duration: 90 Active Albuterol Sulfate HFA 108 (90 Base) MCG/ACT 2 puffs Inhalation every 4 hrs; Duration: 30 days As needed PRN Active BD Pen Needle Holly 2nd Gen 32G X 4 MM USE TO INJECT INSULIN AT BEDTIME; Duration: 90 Active metFORMIN HCl ER 500 MG TAKE 3 TABLETS B Y MOUTH EVERY DAY WITH BREAKFAST 90; Duration: 90 Active Toujeo Max SoloStar 300 UNIT/ML Subcutaneous; [...] E11.8; Duration: 90 days 05/18/2023 Active Nystatin 446232 UNIT/GM 1 application Ex ternally Twice a day; Duration: 30 days PRN 06/30/2023 Active amLODIPine Besylate 5 MG TAKE 1 TABLET BY MOUTH EVERY DAY; Duration: 90 Active Clotrimazole-Betamethas one 1-0.05 % APPLY DAILY TO SKIN TO AFFECTED AREA TWICE A DAY FOR 7 DAYS; Duration: 30 days Active Mounjaro 5 MG/0.5ML 0.5 ML Subcutaneous once weekly; Duration: 30 days replaces ozepmic Not-Taking Problems Problem Type SNOMED Code ICD Code Onset Dates Problem Status W/U Status Risk Notes Problem Disorder due to type 2 diabetes mellitus (023942716) Type 2 diabetes mellitus with unspecified complications (E11.8) Active confirmed Problem Iron deficiency (58807660) Iron deficiency (E61.1) Active confirmed Problem Hyperlipidemia (25701231) Hyperlipidemia, unspecified (E78.5) Active confirmed Problem Hypomagnesemia (451238960) Hypomagnesemia (E83.42) Active confirmed Problem Essential hypertension (34291065) Essential (primary) hypertension (I10) Active confirmed Problem Postoperative hypertension (9977891587540) Postprocedural hypertension (I97.3) Active confirmed Problem Diarrhea (43840221) Diarrhea, unspecified (R19.7) Active confirmed Problem Adult health examination (828054586) Encounter for general adult medical examination without abnormal findings (Z00.00) Active confirmed Problem Hyperlipidaemia (55473083) Hyperlipidemia, unspecified hyperlipidemia type (E78.5) Active confirmed Problem Gastroesophageal reflux disease without esophagitis (778168853) Gastroesophageal reflux disease without esophagitis (K21.9) Active confirmed Problem Type II diabetes mellitus without complication (611802682) Type 2 diabetes mellitus without complication, without long-term current use of insulin (E11.9) Active confirmed Problem Obesity (934096918) Obesity (BMI 35.0-39.9 without comorbidity) (E66.9) Active confirmed Problem Gastroesophageal reflux disease with esophagitis (disorder) (188142760) Gastroesophageal reflux disease with esophagitis without hemorrhage (K21.00) Active confirmed Problem Abdominal pain (04307187) Abdominal pain of unknown etiology (R10.9) Active confirmed Problem Hyperglycemia due to type 2 diabetes mellitus (607748164796413) Uncontrolled type 2 diabetes mellitus with hyperglycemia (E11.65) Active confirmed Problem Hyperlipidemia (57117339) Hyperlipidemia, mild (E78.5) Active confirmed Problem Endocrine/metabolic screening (638672230) Screening for endocrine disorder (Z13.29) Active confirmed Problem Type II diabetes mellitus without complication (565692270) Type 2 diabetes mellitus with hemoglobin A1c goal of 7.0%-8.0% (E11.9) Active confirmed Problem Elevated fasting lipid profile (210155201025) Elevated lipids (E78.5) Active confirmed Problem Diabetes mellitus type 2 in nonobese (147950436) Diabetes mellitus type 2 in nonobese (E11.9) Active confirmed Problem Cramp in lower limb (934068099) Leg cramp (R25.2) Active confirmed Vital Signs Heart Rate 79 /min 01/24/2025 Oximetry 98 % 01/24/2025 Blood pressure diastolic 66 mm Hg 01/24/2025 Height 61 in 01/24/2025 Blood pressure systolic 128 mm Hg 01/24/2025 Weight 156.0 lbs 01/24/2025 BMI 29.47 kg/m2 01/24/2025 Encounters Encounter Location Date Provider Diagnosis [facility] [address] [address] 03/22/2024 Xiomara Svrcek Type 2 diabetes clint itus with unspecified complications E11.8 ; Essential (primary) hypertension I10 ; Chronic diarrhea K52.9 and Gastroesophageal reflux disease without esophagitis K21.9 [facility] [address] [address] 05/07/2024 MARQUISE GODOY Acute cough R05.1 ; Essential (primary) hypertension I10 ; Type 2 diabetes mellitus with unspecified complications E11.8 ; Hyperlipidemia, unspecified hyperlipidemia type E78.5 ; Gastroesophageal reflux disease with esophagitis without hemorrhage K21.00 and Iron deficiency E61.1 [facility] [address] [address] 05/23/2024 Xiomara Svrcek Respiratory syncytia l virus (RSV) as cause of acute bronchitis J20.5 ; Pneumonia due to infectious organism, unspecified laterality, unspecified part of lung J18.9 ; Type 2 diabetes mellitus with unspecified complications E11.8 ; Skin rash R21 and Essential (primary) hypertension I10 [facility] [address] [address] 07/31/2024 Xiomara Svrcek Type 2 diabetes clint itus with unspecified complications E11.8 ; Essential (primary) hypertension I10 ; Hyperlipidemia, unspecified hyperlipidemia type E78.5 and Muscle cramps R25.2 [facility] [address] [address] 10/02/2024 Xiomara Svrcek Type 2 diabetes clint itus with unspecified complications E11.8 ; Essential (primary) hypertension I10 ; Hyperlipidemia, unspecified hyperlipidemia type E78.5 and Muscle cramps R25.2 [facility] [address] [address] 11/07/2024 Xiomara Svrcek Cough R05.9 ; Acute bronchitis, unspecified organism J20.9 and Essential (primary) hypertension I10 [facility] [address] [address] 11/20/2024 Xiomara Svrcek Type 2 diabetes clint itus with unspecified complications E11.8 ; Essential (primary) hypertension I10 ; Hyperlipidemia, unspecified hyperlipidemia type E78.5 and Subacute cough R05.2 [facility] [address] [address] 01/24/2025 Xiomara Svrcek Type 2 diabetes clint itus with unspecified complications E11.8 ; Essential (primary) hypertension I10 ; Hyperlipidemia, unspecified hyperlipidemia type E78.5 ; Rash R21 and Burning with urination R30.[address] [facility] [address] [place], [place] 04/12/2024 Xiomara Svrcek [facility] [address] 05/07/2024 TALAL BOWMAN [facility] [address] [place] [address] 06/04/2024 Xiomara Svrcek [facility] [address], [place] 06/04/2024 Xiomara Svrcek [facility] [address] [address] 07/19/2024 TALAL BOWMAN [facility] [address] 07/31/2024 TALAL BOWMAN Screening for endocr ine disorder Z13.29 ; Elevated lipids E78.5 ; Diabetes mellitus type 2 in nonobese E11.9 and Leg cramp R25.[address] [facility] [address], [place] 09/04/2024 Xiomara Svrcek [facility] [address] [address] 10/02/2024 Xiomara Svrcek [facility] [address] [place], [place] 10/08/2024 Xiomara Svrcek [facility] [address] [address] 11/07/2024 Xiomara Svrcek [facility] [address] [address] 11/07/2024 Xiomara Svrcek Assessments Encounter Date Diagnosis (ICD Code) Assessment Notes Treatment Notes Treatment Clinical Notes Section Notes 03/22/2024 Type 2 diabetes mellitus with unspecified [...] Dictation was accomplished with the use of [employer] voice recognition software, prone to medical misidentifications [...] Dictation was accomplished with the use of [employer] voice recognition software, prone to medical misidentifications [...] fever, and productive cough. Has been using mizw-mhr-rjvwdkp Robitussin and Mucinex with some relief. Reports fever on Tuesday of 100 degrees, then 99.4 degree(s) F, well-controlled with esud-jhv-vrqwdvd Tylenol. Has been able to tolerate p.o. [...] this medication is extra strength compared to citl-kjm-qaqswym guaifenesin in Mucinex. Also discussed supportive measures [...] Dictation was accomplished with the use of [employer] voice recognition software, which is prone to [...] Dictation was accomplished with the use of [employer] voice recognition software, prone to medical misidentifications [...] Dictation was accomplished with the use of [employer] voice recognition software, prone to medical misidentifications [...] Dictation was accomplished with the use of [employer] voice recognition software, prone to medical misidentifications [...] Dictation was accomplished with the use of [employer] voice recognition software, prone to medical misidentifications [...] Discussed dietary modifications in detail. Rfer to material damage appraiser. Follow-up in 6 weeks for repeat A1c. [...] Dictation was accomplished with the use of [employer] voice recognition software, prone to medical misidentifications [...] Discussed dietary modifications in detail. Rfer to material damage appraiser. Follow-up in 6 weeks for repeat A1c. [...] Dictation was accomplished with the use of [employer] voice recognition software, prone to medical misidentifications [...] fever, and productive cough. Has been using qiyx-llv-pbpvcgl Robitussin and Mucinex with some relief. Reports fever on Tuesday of 100 degrees, then 99.4 degree(s) F, well-controlled with hpqj-ouq-yfvlnxo Tylenol. Has been able to tolerate p.o. [...] this medication is extra strength compared to sbdi-ahz-mqirhhh guaifenesin in Mucinex. Also discussed supportive measures [...] Dictation was accomplished with the use of [employer] voice recognition software, which is prone to [...] Dictation was accomplished with the use of [employer] voice recognition software, prone to medical misidentifications [...] Dictation was accomplished with the use of [employer] voice recognition software, prone to medical misidentifications [...] Dictation was accomplished with the use of [employer] voice recognition software, prone to medical misidentifications [...] Dictation was accomplished with the use of [employer] voice recognition software, prone to medical misidentifications [...] She will also be meeting with a material damage appraiser and a electrician control equipment in the next month. Will plan to follow-up with me in 3 months. She is up-to-date on her eye exams. #Hypertension. BP at goal. On amlodipine, valsartan and metoprolol. Discussed importance of healthy diet and regular exercise. #Hyperlipidemia. Labs recently ordered by lynne, will request. plan to f/u with me in 3 months. WIll be meeting with a electrician control equipment. #Rash- intermittent to gluteal fold area. Refilled. [...] Dictation was accomplished with the use of [employer] voice recognition software, prone to medical misidentifications [...] She will also be meeting with a material damage appraiser and a electrician control equipment in the next month. Will plan to follow-up with me in 3 months. She is up-to-date on her eye exams. #Hypertension. BP at goal. On amlodipine, valsartan and metoprolol. Discussed importance of healthy diet and regular exercise. #Hyperlipidemia. Labs recently ordered by lynne, will request. plan to f/u with me in 3 months. WIll be meeting with a electrician control equipment. #Rash- intermittent to gluteal fold area. Refilled. [...] Dictation was accomplished with the use of [employer] voice recognition software, prone to medical misidentifications [...] She will also be meeting with a material damage appraiser and a electrician control equipment in the next month. Will plan to follow-up with me in 3 months. She is up-to-date on her eye exams. #Hypertension. BP at goal. On amlodipine, valsartan and metoprolol. Discussed importance of healthy diet and regular exercise. #Hyperlipidemia. Labs recently ordered by endo, will request. plan to f/u with me in 3 months. WIll be meeting with a electrician control equipment. #Rash- intermittent to gluteal fold area. Refilled. [...] Dictation was accomplished with the use of [employer] voice recognition software, prone to medical misidentifications [...] Dictation was accomplished with the use of [employer] voice recognition software, prone to medical misidentifications [...] Dictation was accomplished with the use of [employer] voice recognition software, prone to medical misidentifications [...] Dictation was accomplished with the use of [employer] voice recognition software, prone to medical misidentifications [...] Discussed dietary modifications in detail. Rfer to material damage appraiser. Follow-up in 6 weeks for repeat A1c. [...] Dictation was accomplished with the use of [employer] voice recognition software, prone to medical misidentifications [...] Dictation was accomplished with the use of [employer] voice recognition software, prone to medical misidentifications [...] fever, and productive cough. Has been using cwtr-jsp-tqnbtzc Robitussin and Mucinex with some relief. Reports fever on Tuesday of 100 degrees, then 99.4 degree(s) F, well-controlled with ryfb-pvo-ioqvgpp Tylenol. Has been able to tolerate p.o. [...] this medication is extra strength compared to xwgo-lxw-ahdxwuv guaifenesin in Mucinex. Also discussed supportive measures [...] Dictation was accomplished with the use of [employer] voice recognition software, which is prone to [...] Dictation was accomplished with the use of [employer] voice recognition software, prone to medical misidentifications [...] Dictation was accomplished with the use of [employer] voice recognition software, prone to medical misidentifications [...] fever, and productive cough. Has been using hlbj-woa-ibyymit Robitussin and Mucinex with some relief. Reports fever on Tuesday of 100 degrees, then 99.4 degree(s) F, well-controlled with znam-wry-xmzqgyi Tylenol. Has been able to tolerate p.o. [...] this medication is extra strength compared to nyti-ihw-tynykvq guaifenesin in Mucinex. Also discussed supportive measures [...] Dictation was accomplished with the use of [employer] voice recognition software, which is prone to [...] Dictation was accomplished with the use of [employer] voice recognition software, prone to medical misidentifications [...] Discussed dietary modifications in detail. Rfer to material damage appraiser. Follow-up in 6 weeks for repeat A1c. [...] Dictation was accomplished with the use of [employer] voice recognition software, prone to medical misidentifications [...] Dictation was accomplished with the use of [employer] voice recognition software, prone to medical misidentifications [...] Dictation was accomplished with the use of [employer] voice recognition software, prone to medical misidentifications [...] She will also be meeting with a material damage appraiser and a electrician control equipment in the next month. Will plan to follow-up with me in 3 months. She is up-to-date on her eye exams. #Hypertension. BP at goal. On amlodipine, valsartan and metoprolol. Discussed importance of healthy diet and regular exercise. #Hyperlipidemia. Labs recently ordered by endo, will request. plan to f/u with me in 3 months. WIll be meeting with a electrician control equipment. #Rash- intermittent to gluteal fold area. Refilled. [...] Dictation was accomplished with the use of [employer] voice recognition software, prone to medical misidentifications [...] Dictation was accomplished with the use of [employer] voice recognition software, prone to medical misidentifications [...] fever, and productive cough. Has been using xfey-sys-hxbisss Robitussin and Mucinex with some relief. Reports fever on Tuesday of 100 degrees, then 99.4 degree(s) F, well-controlled with pwdy-acd-iodbhof Tylenol. Has been able to tolerate p.o. [...] this medication is extra strength compared to hmbi-zqg-cgxrwoe guaifenesin in Mucinex. Also discussed supportive measures [...] Dictation was accomplished with the use of [employer] voice recognition software, which is prone to [...] fever, and productive cough. Has been using dzcm-vdg-xqpbkzm Robitussin and Mucinex with some relief. Reports fever on Tuesday of 100 degrees, then 99.4 degree(s) F, well-controlled with jdwh-smh-ccwbipn Tylenol. Has been able to tolerate p.o. [...] this medication is extra strength compared to pbhb-iif-plvexjw guaifenesin in Mucinex. Also discussed supportive measures [...] Dictation was accomplished with the use of [employer] voice recognition software, which is prone to [...] She will also be meeting with a material damage appraiser and a electrician control equipment in the next month. Will plan to follow-up with me in 3 months. She is up-to-date on her eye exams. #Hypertension. BP at goal. On amlodipine, valsartan and metoprolol. Discussed importance of healthy diet and regular exercise. #Hyperlipidemia. Labs recently ordered by lynne, will request. plan to f/u with me in 3 months. WIll be meeting with a electrician control equipment. #Rash- intermittent to gluteal fold area. Refilled. [...] Dictation was accomplished with the use of [employer] voice recognition software, prone to medical misidentifications [...] (COMPLETE BLOOD COUNT) 02/01/2023 COMPREHENSIVE METABOLIC PANEL 12/21/2022 COMPREHENSIVE METABOLIC PANEL 02/01/2023 COMPREHENSIVE METABOLIC PANEL 08/31/2022 COMPREHENSIVE METABOLIC PANEL 11/22/2023 HEMOGLOBIN A1C 08/31/2022 HEMOGLOBIN A1C 12/21/2022 HEMOGLOBIN A1C 09/28/2023 LIPID PANEL 08/31/2022 MICROALBUMIN, URINE 08/31/2022 TSH 07/31/2024 MICROALB/CREAT RATIO, RANDOM 07/31/2024 URINE CULTURE 01/24/2025 UA WITH CULTURE IF INDICATED 01/24/2025 MAGNESIUM 07/31/2024 LIPID PANEL, STANDARD 07/31/2024 LIPID PANEL, STANDARD 06/30/2023 CARROLL/SHIG/CAMPY, CULTURE AND SHIGA TOXIN, EIA W/RFL TO E.COLI, CULTURE 07/14/2022 IRON, TIBC AND FERRITIN PANEL 09/28/2023 IRON, TIBC AND FERRITIN PANEL 06/30/2023 COMPREHENSIVE METABOLIC PANEL 07/31/2024 BASIC METABOLIC PANEL [...] Name:Xiomara Dean, 1 06/19/2024 01:30:00 PM, [address] [facility] [address], [place], [address], Insurance Providers Payer Name Payer Address Payer Phone Subscriber Number Group Number Insured Name Patient Relationship to Insured Coverage Start Date Coverage End Date [facility] [address] [place] [address] [phone] [id number] [place] [employer] Self - patient is the insured 4 Medical (General) History Medical History History ICD Code esophageal reflux History of breast cancer Z85.3 Essential (primary) hypertension I10 Hyperlipidemia, mild E78.5 Type 2 diabetes mellitus with complicati ons E11.8 Hyperlipidemia, mild E78.5 Asthma J45.909 Surgical History Surgery Date(Month/Year) tubal ligation breast cancer Bilateral mastectomy
== END 2025-02-28 14:05 | disposition home or self-care (01) ==
LOC: HO.ENCR 13:25
PROVIDERS: PCP Physician Assistant; Visit Provider Registered Nurse Diabetes Educator
DX: E11.9 Type 2 diabetes mellitus without complications (principal)
CPT/HCPCS: 99499

== ENCOUNTER 2025-04-08 12:30 | Outpatient (AMB) | payer MEDICARE, BC, SELFPAY ==
--- NOTE | 2025-04-08 12:41 | A.OFFVIS_ITS ---
Vital Signs 04/08/25 13:01 Height 5 ft 1 in Weight 158 lb 1.143 oz BMI 29.9 BP 130/64 Blood Pressure Location Rt radial Position Sitting Pulse 91 Pulse Source Pulse Oximeter Pulse Oximetry (%) 96 Oxygen Delivery Method Room Air Intake Visit Reasons: f/u Type 2 DM Intake Note: Patient present today for T2DM follow up. 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: No Accompanied by: Self / Same As Patient Allergies levofloxacin (From Levaquin) Allergy (Unknown, Verified 04/08/25 13:10) Hives Penicillins Allergy (Unknown, Verified 04/08/25 13:10) Hives sulfamethoxazole (From Bactrim) Allergy (Unknown, Verified 04/08/25 13:10) Hives trimethoprim (From Bactrim) Allergy (Unknown, Verified 04/08/25 13:10) Hives vancomycin Allergy (Unknown, Verified 04/08/25 13:10) Hives aspirin Adverse Reaction (Unknown, Verified 04/08/25 13:10) Upset GI Medication List - Last Reconciled 04/08/25 by Nas Vance MD albuterol sulfate 90 mcg/actuation 2 puffs inhalation Q4H PRN amlodipine 5 mg PO DAILY atorvastatin 20 mg PO DAILY blood sugar diagnostic (Contour Next Test Strips) As directed blood-glucose sensor (Dexcom G7 Sensor device) As directed change every 10 days blood-glucose,milk receiver tank truck,cont (Dexcom G7 Machinist Instructor) As directed esomeprazole magnesium 20 mg PO QAM insulin lispro (Humalog KwikPen (U-100) Insulin) 10 units (0.1 mL) subcut QAM metformin ER 1,500 mg PO QAM metoprolol succinate ER 25 mg PO DAILY pen needle, diabetic (Holly 2nd Gen Pen Needle) As directed tirzepatide (Mounjaro) 10 mg (0.5 mL) subcut QWEEK Toujeo Max U-300 SoloStar (insulin glargine U-300 conc) 80 units (0.2667 mL) subcut DAILY NS valsartan 80 mg PO DAILY HPI Comments Details: 69 YO F who is seen in consultation for T2DM at the request of PCP. Initially diagnosed with T2DM in 2013 . Never saw endo before Was initially started on treatment with metformin . Current regimen Toujeo 70 units . Metformin 1000 mg QD, Mounjaro 10 mg Qwkly Per the Dexcom CGMS is active 140 % of time . data the patient's predicted A1C is 9.6% Avg glucose is 265 . Variability of 55 The patient's blood sugars were in target 5% of the time, above target 95% of the time, and below target 0% of the time Pen shows persistent hyperglycemia throughout the day with increases post- breakfast Reports low sugars never. No Family history of T2DM but family hx unknown Has eyes checked yearly, last eye exam 10/2024 , denies retinopathy. Has neuropathy, not sees podiatry. Denies nephropathy, on EVI/ARB. . Has HLD, on statin. . Denies CAD. Had diabetes education. Anti-alanis 65 antibody is negative [facility] Medical History (Updated 12/20/24 @ 09:34 by Nas Vance MD) Type 2 diabetes mellitus Surgical History History of colonoscopy History of surgery Hx of bilateral mastectomy History of bilateral tubal ligation Family History Mother Heart disease Father No problems noted. Sister Cancer Social History Alcohol intake: never Patient Tobacco Use Status: Never used Tobacco Physical Exam Vital Signs: Last Vital Signs Pulse 91 04/08/25 13:01 BP 130/64 04/08/25 13:01 BMI result Body Mass Index 29.9 Absence of Cushingoid features. Absence of acromegalic features. Neck exam reveals nl size thyroid about 15 gms. No thyroid nodules palpable. No carotid bruits present. Lungs CTA. Heart S1 S2, Reg R/R. No M/R/ G. Skin exam reveals absence of vitiligo or acanthosis nigricans. Abdominal exam reveals Soft NT/ND with NA BS. No organomegaly present. Neck Other: . Extrem Other: Visual exam of foot performed. No ulcerations or open lesions. No onchomycosis, no callouses.Pulses 2 + distally Sensation intact to monofilament exam. Vibratory sensation sensed is intact with 128 Hz tuning fork Results AMB Hemoglobin A1c AMB Hemoglobin A1c 9.3 % Last Edit by CARLIE Simmons on 04/08/25 13:21 Results Reviewed Results Reviewed: Laboratory Last Values Glucose (Clinic) 196 mg/dL (60-115) H 04/08/25 13:06 Assessment & Plan Assessment & Plan (1) Type 2 diabetes mellitus: Code(s): E11.9 - Type 2 diabetes mellitus without complications Category: Medical Plan: 69-year-old female with a history of type 2 diabetes being treated me tformin, Mounjaro and basal insulin with poor glycemic control and known microvascular namely microalbuminuria The plan is to have the pt increase Toujeo U-300 to 80 units and then to 90 units to keep POC in AM <150 . start Humalog 10 units prior to breakfast . Could consider use of an SGLT2 inhibitor once glycemic control has improved somewhat . May need U-500 insulin in future . We will have patient follow up with primary care diabetes team in 4 weeks. Will check 24 hour urine for free cortisol to rule out cushingoid syndrome in this patient who is very insulin resistant Orders: Orders Cortisol, Free 24Hr Urine Today E11.9 - Type 2 diabetes mellitus without comp lications Creatinine, 24 Hr Group Today E11.9 - Type 2 diabetes mellitus without complications AMB Hemoglobin A1c Today E11.9 - Type 2 diabetes mellitus without complications Medications: New insulin lispro (Humalog KwikPen (U-100) Insulin) 10 units (0.1 mL) subcut QAM 15 mL 5RF Changed From Toujeo Max U-300 SoloStar (insulin glargine U-300 conc) 70 units (0.2333 mL) subcut DAILY 18 mL 4RF NS To Toujeo Max U-300 SoloStar (insulin glargine U-300 conc) 80 units (0.2667 mL) subcut DAILY 18 mL 4RF NS Coding Level of Care Code Complex visit Add On G2211 Diagnoses Type 2 diabetes mellitus E11.9
[2025-04-08 13:01] VITALS: BP 130/64; PULSE 91; O2SAT 96; BMI 29.9
[2025-04-08 13:12] LABS: Glucose, Whole Blood 196 mg/dL (60-115)
--- OUTSIDE RECORDS SUMMARY | 2025-04-08 16:09 | XMS_ITS | Clinical Summary ---
Author Organization [address] [place] [address] Address [address] [place] [address] Phone Care Team Providers Care Certified Histologic Technician Name Role Phone Fei Bowman MD Primary Care Provider [phone] Allergies Active Allergy Reactions Criticality Noted Date [...] mononeuropathy, without long-term current use of insulin ([facility] V24, [facility] V28) 08/19/2017 Breast cancer ([facility] V24, [facility] V28) 016 Overview (02/23/2024): Bilateral mastectomy. Follows with Dr. Rey. CTS (carpal tunnel syndrome) 02/19/2014 Hyperlipidemia with target LDL less than 100 Overview (02/23/2024): IMO update Diabetes mellitus with renal complications ([facility] V24, [facility] V28) 05/11/2011 DCIS (ductal carcinoma in situ) [...] HISTORICAL TUBAL LIGATION OTHER SURGICAL HISTORY PROCEDURE: RI REPOSITIONING IO LENS PROSTHESIS REQ INC SPX; COMMENT: left eye ESOPHAGOGASTRODUODENOSCOPY 2006 PROCEDURE: RI ESOPHAGOGASTRODUODENOSCOPY TRANSORAL DIAGNOSTIC; COMMENT: duodenal adenoma. ESOPHAGOGASTRODUODENOSCOPY 07/14 PROCEDURE: RI ESOPHAGOGASTRODUODENOSCOPY TRANSORAL DIAGNOSTIC; COMMENT: normal; repeat in 07/2012 ESOPHAGOGASTRODUODENOSCOPY 08.20.13 PROCEDURE: RI EGD TRANSORAL BIOPSY SINGLE/MULTIPLE; COMMENT: normal, with nl duodenal biopsies COLONOSCOPY 09/14 [place] PROCEDURE: RI COLONOSCOPY STOMA DX INCLUDING COLLJ SPEC SPX; COMMENT: has polyps repeat in 2011; diverticulosis and hemorrhoids COLONOSCOPY 10/02/10 PROCEDURE: RI COLONOSCOPY STOMA DX INCLUDING COLLJ SPEC SPX; COMMENT: adenomas, tics and hemorrhoids; repeat in three years COLONOSCOPY 08/20/13 PROCEDURE: RI COLONOSCOPY STOMA W/RMVL JAMIE POLYP/OTH LES SNARE; [...] Status Comments Father ?internal bleed Mother with PA at age 27 Sister dx'd age 60 Alive Social History Tobacco Use Types Packs/Day Years Used Date Smoking Tobacco: Former Cigarettes 8.7 0 09/08/1979 - 05/09/1988 Smokeless Tobacco: Never [...] Screening 04/17/2022 Depression Screening 05/09/2024 COVID-19 Vaccine ( season) 2025 02/12/2024, 01/31/2022, 03/29/2021, Additional history [...] Screening for thyroid disorder Hyperlipidemia Diabetes mellitus ([facility]/HCC V24, [facility]/HCC V28) Cramp of limb COMPREHENSIVE [...] Type 2 diabetes mellitus with diabetic mononeuropathy ([facility]/HCC V24, [facility]/HCC V28) HEPATITIS C SCREENING Routine 11/08/2012 from Last 3 Months or Most Recently Relevant to Health Maintenance Results * (ABNORMAL) Urinalysis with reflex microscopic (01/24/2025 1:29 PM EDT) Specific [place] Urine 1.024 1.003 - 1.030 LAB URINALYSIS - AUTOMATED METHOD 01/24/2025 2:59 PM EDT [facility] pH, Urine 5.5 5.0 - 8.0 pH LAB URINALYSIS - AUTOMATED METHOD 01/24/2025 2:59 PM [facility] Leukocytes, Urine Trace(A) Negative LAB URINALYSIS - AUTOMATED METHOD 01/24/2025 2:59 PM [facility] Nitrite, Urine Negative Negative LAB URINALYSIS - AUTOMATED METHOD 01/24/2025 2:59 PM [facility] Protein, Urine Trace <=Trace mg/dL LAB URINALYSIS - AUTOMATED METHOD 01/24/2025 2:59 PM [facility] Glucose, Urine Negative Negative mg/dL LAB URINALYSIS - AUTOMATED METHOD 01/24/2025 2:59 PM [facility] Ketones, Urine Trace(A) Negative mg/dL LAB URINALYSIS - AUTOMATED METHOD 01/24/2025 2:59 PM [facility] Urobilinogen, Urine 1.0 0.2 - 1.0 mg/dL LAB URINALYSIS - AUTOMATED METHOD 01/24/2025 2:59 PM [facility] Bilirubin, Urine Negative Negative LAB URINALYSIS - AUTOMATED METHOD 01/24/2025 2:59 PM [facility] Blood, Urine Negative Negative LAB URINALYSIS - AUTOMATED METHOD 01/24/2025 2:59 PM [facility] RBC, Urine 2.2 0 - 4 /HPF LAB URINALYSIS - AUTOMATED METHOD 01/24/2025 2:59 PM [facility] WBC, Urine 3.9 0 - 4 /HPF LAB URINALYSIS - AUTOMATED METHOD 01/24/2025 2:59 PM [facility] Squamous Epithelial, Urine 62(H) 0 - 60 /LPF LAB URINALYSIS - AUTOMATED METHOD 01/24/2025 2:59 PM [facility] Bacteria, Urine Negative Negative /HPF LAB URINALYSIS - AUTOMATED METHOD 01/24/2025 2:59 PM [facility] Hyaline Casts, Urine 1.6 0 - 3 /LPF LAB URINALYSIS - AUTOMATED METHOD 01/24/2025 2:59 PM EDT [facility] Urine Urine specimen obtained by clean catch procedure / Unknown Non-blood Collection / Unknown 01/24/2025 1:29 PM EDT 01/24/2025 2:47 PM EDT Xiomara VALDIVIA LAB URINE ORDERABLES Final Resul t Performing Organization Address [facility]/ZIP Co de Phone Number [facility] [address] [place] [address], [place] [phone] * Culture urine (01/24/2025 1:29 PM EDT) Culture, Urine <10,000 CFU/mL gram positive cocci, insignificant count, no further workup 01/25/2025 12:16 PM EDT [facility] Urine Urine specimen from urethra / Unknown Non-blood Collection / Unknown 01/24/2025 1:29 PM EDT 01/24/2025 2:48 PM EDT Xiomara VALDIVIA LAB MICROBIOLOGY - GENERAL ORDER [place] Final Result Performing Organization Address [facility] Co de Phone Number [facility] [address] [place] [address], [place] [phone] * (ABNORMAL) Microalbumin creatinine urine ratio (09/19/2024 7:52 AM EDT) Creatinine, Urine 234.0 mg/dL LAB CHEMISTRY METHOD 09/19/2024 9:00 AM EDT [facility] Microalb, Ur 69.1(H) 0.0 - 29.0 mg/L LAB CHEMISTRY METHOD 09/19/2024 9:00 AM EDT [facility] Microalb/Crea t Ratio 30(H) <30 mg/g creat LAB CHEMISTRY METHOD 09/19/2024 9:00 AM EDT [facility] Urine Urine specimen obtained by clean catch procedure / Unknown Non-blood Collection / Unknown 09/19/2024 7:52 AM EDT 09/19/2024 7:57 AM EDT us Fei Bowman MD LAB URINE ORDERABLES Final Resul t [facility] [address] [place] [address], [place] [phone] * (ABNORMAL) Lipid panel with reflex to direct LDL (09/19/2024 7:46 AM EDT) Cholesterol 131 0 - 200 mg/dL LAB CHEMISTRY METHOD 09/19/2024 8:43 AM [facility] Triglycerides 181(H) 0 - 150 mg/dL LAB CHEMISTRY METHOD 09/19/2024 8:43 AM [facility] HDL 46 >=40 mg/dL LAB CHEMISTRY METHOD 09/19/2024 8:43 AM [facility] LDL Calculated 49 0 - 100 mg/dL LAB CHEMISTRY METHOD 09/19/2024 8:43 AM [facility] VLDL Cholesterol Pan 36.2 mg/dL LAB CHEMISTRY METHOD 09/19/2024 8:43 AM [facility] Non HDL Chol. (LDL+VLDL) 85 <145 mg/dL LAB CHEMISTRY METHOD 09/19/2024 8:43 AM [facility] Chol/HDL Ratio 2.8 0.0 - 4.4 LAB CHEMISTRY METHOD 09/19/2024 8:43 AM [facility] Blood Venous blood specimen / Unknown Venipuncture / Unknown 09/19/2024 7:46 AM EDT 09/19/2024 7:57 AM EDT us Fei Bowman MD LAB BLOOD ORDERABLES Final Resul t Performing Organization Address [facility] Co de Phone Number [facility] [address] [place] [address], * (ABNORMAL) Hemoglobin A1c (09/19/2024 7:46 AM EDT) Hemoglobin A1C 10.2(H) <6.5 % LAB CHEMISTRY METHOD 09/19/2024 10:39 AM EDT [facility] Mean Bld Glu Estim. 246 mg/dL LAB CHEMISTRY METHOD 09/19/2024 10:39 AM EDT [facility] Blood Venous blood specimen / Unknown Venipuncture / Unknown 09/19/2024 7:46 AM EDT 09/19/2024 7:57 AM EDT Fei Bowman MD LAB BLOOD ORDERABLES Final Resul t Performing Organization Address [facility] de Phone Number [facility] [address] [place] [address], [place] [phone] * (ABNORMAL) Comprehensive metabolic panel (09/19/2024 7:46 AM EDT) [facility] Sodium 136 133 - 145 mmol/L LAB CHEMISTRY METHOD 09/19/2024 8:43 AM EDT [facility] Potassium 4.4 3.5 - 5.5 mmol/L LAB CHEMISTRY METHOD 09/19/2024 8:43 AM EDT [facility] Chloride 105 96 - 110 mmol/L LAB CHEMISTRY METHOD 09/19/2024 8:43 AM EDT [facility] CO2 24 21 - 32 mmol/L LAB CHEMISTRY METHOD 09/19/2024 8:43 AM EDT [facility] Anion Gap 7 3 - 11 LAB CHEMISTRY METHOD 09/19/2024 8:43 AM EDT [facility] Glucose 208(H) 70 - 100 mg/dL LAB CHEMISTRY METHOD 09/19/2024 8:43 AM [facility] BUN 9 5 - 25 mg/dL LAB CHEMISTRY METHOD 09/19/2024 8:43 AM [facility] Creatinine 0.88 0.50 - 1.10 mg/dL LAB CHEMISTRY METHOD 09/19/2024 8:43 AM [facility] eGFR 71 >=60 mL/min/1. 73m2 LAB CHEMISTRY METHOD 09/19/2024 8:43 AM [facility] Comment:Calculation based on the Chronic Kidney Disease Epidemiology Collaboration (CKD-EPI) equation refit without adjustment for race. BUN/Creatinine Ratio 10.2 LAB CHEMISTRY METHOD 09/19/2024 8:43 AM [facility] Calcium 9.9 8.5 - 10.5 mg/dL LAB CHEMISTRY METHOD 09/19/2024 8:43 AM [facility] AST (SGOT) 24 10 - 42 unit/L LAB CHEMISTRY METHOD 09/19/2024 8:43 AM [facility] ALT (SGPT) 39 10 - 60 unit/L LAB CHEMISTRY METHOD 09/19/2024 8:43 AM [facility] Alkaline Phosphatase 113 42 - 121 unit/L LAB CHEMISTRY METHOD 09/19/2024 8:43 AM [facility] Total Protein 7.1 6.0 - 8.0 g/dL LAB CHEMISTRY METHOD 09/19/2024 8:43 AM [facility] Albumin 3.8 3.2 - 5.0 g/dL LAB CHEMISTRY METHOD 09/19/2024 8:43 AM [facility] Total Bilirubin 1.0 0.0 - 1.4 mg/dL LAB CHEMISTRY METHOD 09/19/2024 8:43 AM [facility] Blood Venous blood specimen / Unknown Venipuncture / Unknown 09/19/2024 7:46 AM EDT 09/19/2024 7:57 AM EDT us Fei Bowman MD LAB BLOOD ORDERABLES Final Resul t [facility] ([facility]) [facility] [address] [place] [address], * COLONOSCOPY Anesthesia - MAC; [facility] ENDOSCOPY (07/26/2024 9:43 AM EDT) Anatomical Region Laterality Modality Endoscopy 07/26/2024 9:19 AM EDT Impressions 07/26/2024 9:44 AM EDT - One 8 mm polyp in the ascending colon, removed with a cold snare. Resected and retrieved. - One 8 mm polyp in the transverse colon, removed with a cold snare. Resected and retrieved. Clips were placed. Clip telecommunications field engineer: [employer]. - Diverticulosis in the entire examined colon. [...] verified by the physician, the nurse, the beaming inspector and the injection maintenance technician in the pre-procedure area in the [...] two hemostatic clips were successfully placed. Clip telecommunications field engineer: [employer]. There was no bleeding at the end of the procedure. Many small and large-mouthed diverticula were found in the entire colon. Internal hemorrhoids were found during retroflexion. The hemorrhoids were Grade I (internal hemorrhoids that do not prolapse). The exam was otherwise without abnormality. Procedure Code(s): --- Professional --- 92220, Colonoscopy, flexible; with removal of tumor(s), polyp(s), or other lesion(s) by snare technique Diagnosis Code(s): --- Professional --- D12.2, Benign neoplasm of ascending colon D12.3, Benign neoplasm of transverse colon (hepatic flexure or splenic flexure) CPT copyright 2020 [employer] [place] [employer]. All rights reserved. The codes documented in this report are preliminary and upon welder plastic review may be revised to meet current compliance requirements. Ne Garcia MD 07/26/2024 9:44:23 AM This report has been signed electronically.Ne Garcia MD Number of Addenda: 0 Note Initiated On: 07/26/2024 9:19 AM Scope Withdrawal Time: 0 hours 15 minutes 36 seconds Scope In: 9:23:50 AM Scope Out: 9:42:31 AM Endoscopy Department at [facility] - [address] [place] [phone] Procedure Note Ne Garcia MD - 07/26/2024 [...] the physician, the nurse, theanesthetist and the injection maintenance technician in the pre-procedure area in the [...] two hemostatic clips were successfully placed. Clip telecommunications field engineer: [employer]. There was nobleeding at the end of the procedure. Many small and large-mouthed diverticula were foundin the entire colon. Internal hemorrhoids were found duringretroflexion. The hemorrhoids were Grade I (internal hemorrhoids that do not prolapse). The exam was otherwise without abnormality. Procedure Code(s): --- Professional --- 63439, Colonoscopy, flexible; with removal of tumor(s), polyp(s), or other lesion(s) by snare technique Diagnosis Code(s): --- Professional --- D12.2, Benign neoplasm of ascending colon D12.3, Benign neoplasm of transverse colon (hepatic flexure or splenic flexure) CPT copyright 2020 [employer] [place] [employer]. All rights reserved. The codes documented in this report are preliminary and upon welder plastic reviewmay be revised to meet current compliance requirements. Ne Garcia MD 07/26/2024 9:44:23 AM This report has been signed electronically.Ne Garcia MD Number of Addenda: 0 Note Initiated On: 07/26/2024 9:19 AM Scope Withdrawal Time: 0 hours 15 minutes 36 seconds Scope In: 9:23:50 AM Scope Out: 9:42:31 AM Endoscopy Department at [facility] - [address] [place] [phone] IMPRESSION: - One 8 mm polyp in the ascending colon, removed with a cold snare. Resected and retrieved. - One 8 mm polyp in the transverse colon, removedwith a cold snare. Resected and retrieved. Clips were placed. Clip telecommunications field engineer: [employer]. - Diverticulosis in the entire examined colon. [...] (World Health Organization Fracture Risk Assessment) [facility] Department of Internal Medicine recommends using National [...] alternative screening schedule based on hernandez Gomez., [facility] May 27, 2011 for patients with osteopenia [...] years. (World HealthOrganization Fracture Risk Assessment) [facility] Department of Internal Medicine recommendsusing National Osteoporosis [...] alternative screening schedule based on [facility]., [facility] for patients with [facility]openia (based on [...] Final Result * Hepatitis C Screening (11/08/2012) [facility] Hepatitis C Screening Abstracted Historical Provider HEALTH MAINTENANCE Final Result from Last 3 Months or Most Recently Relevant to Health Maintenance Insurance MEDICARE [facility] ([facility]) Advance Directives Documents on File Type Date Recorded Patient Manager Machine Expl anation Health Care Decision (hx) 11/17/2015 [...] (hx) 11/17/2015 AD MARIN DIRECTIVE Care Teams Certified Histologic Technician Relationship Specialty Start Date End Date Fei Bowman MD [address] [place] [phone] PCP - General Internal Medicine 07/26/24
--- OUTSIDE RECORDS SUMMARY | 2025-04-08 16:09 | XMS_ITS | Clinical Summary ---
[facility] Organization [facility] Address [address] [place] [address] Care Team Providers Care Gi Asst Name Role Phone Marina Jesus MD Primary Care Provider [phone] Allergies Active Allergy Reactions Criticality Noted Date [...] age to complete this topic Care Teams Gi Asst Relationship Specialty Start Date End Date Marina Jesus MD PCP - General Internal Medicine 03/28/17
--- OUTSIDE RECORDS SUMMARY | 2025-04-08 16:10 | XMS_ITS | Continuity of Care Document ---
Author Organization [facility] Address [address] [facility] [address] [place] [address] Phone [phone] Social History Type Date Description Comments Sex Female Sex Unknown Medical Devices Description No Information Available Encounters Description No Information Available Assessments Description No Information Available Plan of Treatment No Information Available Functional Status Description No Information Available Mental Status Description No Information Available Referrals Description No Information Available
== END 2025-04-08 13:20 | disposition home or self-care (01) ==
LOC: HO.ENCR 12:31
PROVIDERS: PCP Physician Assistant; Visit Provider Internal Medicine Endocrinology, Diabetes & Metabolism
DX: E11.65 Type 2 diabetes mellitus with hyperglycemia (principal); Z79.4 Long term (current) use of insulin
CPT/HCPCS: 99214; G2211

== ENCOUNTER → 2025-04-08 12:30 | Outpatient (BNVA) | payer BC, MEDICARE, SELFPAY | PROVIDERS: PCP Physician Assistant; Visit Provider Internal Medicine Endocrinology, Diabetes & Metabolism | DX: E11.65 Type 2 diabetes mellitus with hyperglycemia (principal); Z79.4 Long term (current) use of insulin; Z79.84 Long term (current) use of oral hypoglycemic drugs | CPT/HCPCS: 82947; 83036; 99212 ==

== ENCOUNTER 2025-05-08 13:17 | Outpatient (AMB) | payer MEDICARE, BC, SELFPAY ==
--- OUTSIDE RECORDS SUMMARY | 2024-07-25 09:00 | XMS_ITS ---
Author Organization [facility] [address] Address [address] [place] [address] Care Team Providers Care Rural Carrier Associate Name Role Phone Dianne Xiomara Unavailable [phone] Encounters Encounter Location Date Provider Diagnosis [facility] [address] [facility] [address] [place] [address] 07/25/2024 Xiomara Dena Plan Of Treatment Next Appt Details Provider Name:Xiomara Dean, 0 07/25/2025 02:00:00 PM, [address] [facility] [address], [place], [address], Progress Notes * UYEN MORANOB:1955 (69 yo F)Acc No.[id number]:07/25/2024 Progress Notes Patient: LEE HAJI Provider: Randi Dean PA-C :1955 A ge:68 Y S ex:Female Date:07/25/2024 Address:[address] [place], [place] [id number] Care Plan Details* * Electronic signature of Xiomara Dean PA-C on 05/08/2025 at 02:44 PM EST Sign off status: Pending * Provider: Randi Dean PA-C Date: 0 07/25/2024 Generated for Kaity fernandes/Kelsey/eTransmitting on: 1 02:44 PM EST
--- OUTSIDE RECORDS SUMMARY | 2025-05-06 08:50 | XMS_ITS | Encounter Summary ---
Author Organization [facility] Address [address] [place] [address] Care Team Providers Care Clinical Nurse Educator Name Role Phone Fei Bowman MD Primary Care Provider [phone] Encounter Details Date Type Department Care Team (Late st Contact Info) Description 05/06/2025 8:50 AM EST Lab Draw Station - [address] [address] Kidney trouble Social History Tobacco Use Types Packs/Day Years [...] on file Sexual Orientation Not on file documented as of this encounter Plan of Treatment Not on file documented as of this encounter Procedures Procedure Name Priority Date/Time Associated Diagnosis Comments MICROALBUMIN CREATININE URINE RATIO Routine 05/06/2025 8:55 AM EST Kidney trouble BASIC METABOLIC PANEL Routine 05/06/2025 8:48 AM EST Kidney trouble documented in this encounter Results * (ABNORMAL) Microalbumin creatinine urine ratio (05/06/2025 8:55 AM EST) Creatinine, Urine 181.0 mg/dL 05/06/2025 11:35 AM EST [facility] ([facility]) [facility] Microalb, Ur 98.0(H) 0.0 - 29.0 mg/L 05/06/2025 11:35 AM [facility] Microalb/Creat Ratio 54(H) <30 mg/g creat 05/06/2025 11:35 AM [facility] Urine Urine specimen obtained by clean catch procedure / Unknown Non-blood Collection / Unknown 05/06/2025 8:55 AM EST 05/06/2025 10:22 AM EST us [facility] URINE ORDERABLES Final Resul t [facility] [address] [place] [address], * (ABNORMAL) Basic metabolic panel (05/06/2025 8:48 AM EST) Sodium 139 133 - 145 mmol/L 05/06/2025 11:15 AM [facility] Potassium 4.3 3.5 - 5.5 mmol/L 05/06/2025 11:15 AM [facility] Chloride 100 96 - 110 mmol/L 05/06/2025 11:15 AM [facility] CO2 27 21 - 32 mmol/L 05/06/2025 11:15 AM [facility] Anion Gap 12(H) 3 - 11 05/06/2025 11:15 AM [facility] Glucose 163(H) 70 - 100 mg/dL 05/06/2025 11:15 AM [facility] BUN 10 5 - 25 mg/dL 05/06/2025 11:15 AM [facility] Creatinine 0.92 0.50 - 1.10 mg/dL 05/06/2025 11:15 AM [facility] eGFR 67 >=60 mL/min/1. 73m2 05/06/2025 11:15 AM EST [facility] Comment:Calculation based on the Chronic Kidney Disease Epidemiology Collaboration (CKD-EPI) equation refit without adjustment for race. BUN/Creatinine Ratio 10.9 05/06/2025 11:15 AM EST [facility] Calcium 9.3 8.5 - 10.5 mg/dL 05/06/2025 11:15 AM [facility] Blood Venous blood specimen / Unknown Venipuncture / Unknown 05/06/2025 8:48 AM EST 05/06/2025 10:22 AM EST [facility] BLOOD ORDERABLES Final Resul t [facility] [address] [place] [address], documented in this encounter Visit Diagnoses Diagnosis Kidney trouble Unspecified disorder of kidney and ureter documented in this encounter Care Teams Clinical Nurse Educator Relationship Specialty Start Date End Date Fei Bowman MD [address] [place] [id number] PCP - General Internal Medicine 07/26/24 documented as of this encounter
--- NOTE | 2025-05-08 13:29 | MHC.OFFVIS ---
Vital Signs 05/08/25 13:30 Height 5 ft 1 in Weight 158 lb 8.451 oz BMI 30.0 BP 122/70 Blood Pressure Location Rt brachial Position Sitting Pulse 97 Pulse Source Pulse Oximeter Pulse Oximetry (%) 97 Oxygen Delivery Method Room Air Intake Visit Reasons: f/u TYpe 2 DM Intake Note: Patient presents today for a follow-up on Type 2 Diabetes Mellitus: Patient was last seen by Dr Nas Vance MD. 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: No Accompanied by: Self / Same As Patient Allergies levofloxacin (From Levaquin) Allergy (Unknown, Verified 05/08/25 13:29) Hives Penicillins Allergy (Unknown, Verified 05/08/25 13:29) Hives sulfamethoxazole (From Bactrim) Allergy (Unknown, Verified 05/08/25 13:29) Hives trimethoprim (From Bactrim) Allergy (Unknown, Verified 05/08/25 13:29) Hives vancomycin Allergy (Unknown, Verified 05/08/25 13:29) Hives aspirin Adverse Reaction (Unknown, Verified 05/08/25 13:29) Upset GI HPI Comments Details: 69 YO F with diabetes presenting for follow up Medical history: htn, hld, GERd Initially diagnosed with T2DM in 2013 . Never saw endo before Was initially started on treatment with metformin Current regimen Toujeo 80 units (increased from 70 one month ago) Lispro 10 units before breakfast Metformin 1000 mg QD (does not tolerate higher doses Mounjaro 10 mg Qwkly A1C 04/08/2025 9.3% Per the Dexcom CGMS- 89% use, avg glucose 224, GMI 8.7%, high 83% TGT 17%. Still having some spike after breakfast though improved. Have some increased readings after dinner Denies hypoglycemia No Family history of T2DM but family hx unknown Has eyes checked yearly, last eye exam 10/2024 , denies retinopathy. Has neuropathy, not sees podiatry. Denies nephropathy, on EVI/ARB. . Has HLD, on statin. . Denies CAD. Had CDE Anti-alanis 65 antibody is negative ROS CONSTITUTIONAL: Denies weight loss, fever and chills. HEENT: Denies changes in vision and hearing. RESPIRATORY: Denies SOB and cough. CV: Denies palpitations and CP GI: Denies abdominal pain, nausea, vomiting and diarrhea. : Denies dysuria and urinary frequency. MSK: Denies new myalgia and joint pain. SKIN: Denies rash and pruritus. NEUROLOGICAL: Denies headache PSYCHIATRIC: Denies recent changes in mood. PHYSICAL EXAM: GENERAL: Alert and oriented x 3. NAD EYES: EOMI. Anicteric. HENT: Moist mucous membranes. No scleral icterus. No cervical lymphadenopathy. LUNGS: Clear to auscultation bilaterally. CARDIOVASCULAR: Regular rate and rhythm. No murmur. No JVD. ABDOMEN: Soft, non-tender +bs EXTREMITIES: No edema. Non-tender. SKIN: No rashes or lesions. Warm. NEUROLOGIC: No focal neurological deficits. CN II-XII grossly intact PSYCHIATRIC: Cooperative. Appropriate mood and affect [facility] Medical History Type 2 diabetes mellitus Surgical History History of colonoscopy History of surgery Hx of bilateral mastectomy History of bilateral tubal ligation Family History Mother Heart disease Father No problems noted. Sister Cancer Social History Alcohol intake: never Patient Tobacco Use Status: Never used Tobacco Physical Exam Vital Signs: Last Vital Signs Pulse 97 05/08/25 13:30 BP 122/70 05/08/25 13:30 Pulse Ox 97 05/08/25 13:30 Oxygen Delivery Method Room Air 05/08/25 13:30 BMI result Body Mass Index 30.0 Results Reviewed Results Reviewed: Laboratory Last Values Glucose (Clinic) 196 mg/dL (60-115) H 05/08/25 13:34 Assessment & Plan Assessment & Plan (1) Type 2 diabetes mellitus: Code(s): E11.9 - Type 2 diabetes mellitus without complications Category: Medical Qualifiers: Diabetes mellitus halfway insulin use: with halfway use Diabetes mellitus complication status: with hyperglycemia Qualified Code(s): E11.65 - Type 2 diabetes mellitus with hyperglycemia; Z79.4 - yeast pusher (current) use of insulin Plan 69 year old for follow up Some slight interval improvement but still suboptimal control Increase mounjaro to 12.5 weekly. Increase humalog before breakfast to 14 units No hypoglycemia, treat any by rules of 15s Return in 4 weeks or sooner as needed Medications: New Mounjaro (tirzepatide) 12.5 mg (0.5 mL) subcut QWEEK 6 mL 3RF NS Changed From insulin lispro (Humalog KwikPen (U-100) Insulin) 10 units (0.1 mL) subcut QAM 15 mL 5RF To insulin lispro (Humalog KwikPen (U-100) Insulin) 14 units (0.14 mL) subcut QAM 15 mL 5RF Discontinued tirzepatide (Mounjaro) Discontinued Reason: Doctor's Order 10 mg (0.5 mL) subcut QWEEK 2 mL 5RF Coding Level of Care Code Est Pt Level 4 (09576) Diagnoses Type 2 diabetes mellitus with hyperglycemia, with long-term current use of insulin E11.65; Z79.4 Diabetes mellitus halfway insulin use: with commercial lender use Diabetes mellitus complication status: with hyperglycemia
[2025-05-08 13:30] VITALS: BP 122/70; PULSE 97; O2SAT 97
[2025-05-08 13:37] LABS: Glucose, Whole Blood 196 mg/dL (60-115)
--- OUTSIDE RECORDS SUMMARY | 2025-05-08 14:45 | XMS_ITS | Continuity of Care Document ---
Author Organization [facility] Address [address] [facility] [address] [place] [address] Phone [phone] Social History Type Date Description Comments Sex Female Sex Unknown Medical Devices Description No Information Available Encounters Description No Information Available Assessments Description No Information Available Plan of Treatment No Information Available Functional Status Description No Information Available Mental Status Description No Information Available Referrals Description No Information Available
--- OUTSIDE RECORDS SUMMARY | 2025-05-08 14:45 | XMS_ITS | Patient Health Record ---
Author Organization [facility] [address] Address [address] [place] [address] Care Team Providers Care Hourly Team Members Name Role Phone Xiomara Dean Unavailable [phone] BARBARA BOWMAN Unavailable [phone] Allergies Allergen (clinical drug ingredient) Drug/Non Drug Allergy documented on EMR Reaction Allergy Type Onset Date Status sulfamethoxazole / trimethoprim Bactrim Unknown Drug Allergy Active Levaquin Unknown Drug Allergy Active aspirin Aspirin Unknown Drug Allergy Active Penicillin Unknown Drug Allergy Active vancomycin Vancomycin Unknown Drug Allergy Activ e Results Component Value Reference Range Flag Notes BASIC METABOLIC PANEL Reviewed date:05/07/2025 11:32:04 AM Interpretation: Performing Lab: Notes/Report: Sodium 139 133-145 mmol/L Potassium 4.3 3.5-5.5 mmol/L Chloride 100 96-110 mmol/L CO2 27 21-32 mmol/L Anion Gap 12 3-11 H Glucose 163 70-100 mg/dL H BUN 10 5-25 mg/dL Creatinine 0.92 0.50-1.10 mg/dL eGFR 67 >=60 mL/min/1.73m2 Calculation based on the Chronic Kidney Disease Epidemiology Collaboration (CKD-EPI) equation refit without adjustment for race. BUN/Creatinine Ratio 10.9 Calcium 9.3 8.5-10.5 mg/dL MICROALBUMIN CREATININE URIN E RATIO Reviewed date:05/07/2025 11:32:04 AM Interpretation: Performing Lab: Notes/Report: Creatinine, Urine 181.0 Microalb, Ur 98.0 0.0-29.0 mg/L H Microalb/Creat Ratio 54 <30 mg/g creat H CULTURE URINE Reviewed date:01/28/2025 01:00:33 PM Interpretation: Performing Lab: Notes/Report: Culture, Urine <10,000 CFU/mL gram positive cocci, insignificant count, no further workup TISSUE EXAM Reviewed date:07/27/2024 11:12:39 AM Interpretation: [...] 10% NB formalin fixed and paraffin embedded. LIPID PANEL WITH REFLEX TO D CLAY[place]CT LDL Reviewed date:09/24/2024 12:12:36 PM Interpretation: Performing Lab: Notes/Report: Cholesterol 131 0-200 mg/dL Triglycerides 181 0-150 mg/dL H HDL 46 >=40 mg/dL LDL Calculated 49 0-100 mg/dL VLDL Cholesterol Pan 36.2 Non HDL Chol. (LDL+VLDL) 85 <145 mg/dL Chol/HDL Ratio 2.8 0.0-4.4 THYROID STIMULATING HORMONE Reviewed date:09/24/2024 12:11:23 PM Interpretation: Performing Lab: Notes/Report: TSH 1.94 0.40-4.00 mcIU/mL MAGNESIUM Reviewed date:09/24/2024 12:16:24 PM Interpretation: Performing Lab: Notes/Report: Magnesium 1.8 1.9-2.6 mg/dL L COMPREHENSIVE METABOLIC PANE L Reviewed date:09/24/2024 12:16:08 PM Interpretation: Performing Lab: Notes/Report: Sodium 136 133-145 mmol/L Potassium 4.4 3.5-5.5 mmol/L Chloride 105 96-110 mmol/L CO2 24 21-32 mmol/L Anion Gap 7 3-11 Glucose 208 70-100 mg/dL H BUN 9 5-25 mg/dL Creatinine 0.88 0.50-1.10 mg/dL eGFR 71 >=60 mL/min/1.73m2 Calculation based on the Chronic Kidney Disease Epidemiology Collaboration (CKD-EPI) equation refit without adjustment for race. BUN/Creatinine Ratio 10.2 Calcium 9.9 8.5-10.5 mg/dL AST (SGOT) 24 10-42 unit/L ALT (SGPT) 39 10-60 unit/L Alkaline Phosphatase 113 42-121 unit/L Total Protein 7.1 6.0-8.0 g/dL Albumin 3.8 3.2-5.0 g/dL Total Bilirubin 1.0 0.0-1.4 mg/dL MICROALBUMIN CREATININE URIN E RATIO Reviewed date:09/24/2024 12:12:15 PM Interpretation: Performing Lab: Notes/Report: Creatinine, Urine 234.0 Microalb, Ur 69.1 0.0-29.0 mg/L H Microalb/Creat Ratio 30 <30 mg/g creat H HEMOGLOBIN A1C Reviewed date:09/24/2024 12:15:36 PM Interpretation: Performing Lab: Notes/Report: Hemoglobin A1C 10.2 <6.5 % H Mean Bld Glu Estim. 246 CBC WITH AUTO DIFFERENTIAL Reviewed date:09/24/2024 12:14:21 PM Interpretation: Performing Lab: Notes/Report: WBC 7.3 4.8-10.8 K/mcL RBC 5.20 3.80-4.80 M/mcL H Hemoglobin 12.1 11.5-16.0 g/dL Hematocrit 39.6 35.0-47.0 % MCV 76.6 79.0-98.0 FL L MCH 23.4 27.0-32.0 pcg L MCHC 30.6 32.0-37.0 g/dL L RDW 16.7 11.0-15.0 % H Platelets 295 130-400 K/mcL MPV 9.9 7.0-11.0 [...] K/mcL Immature Granulocytes Absolute 0.03 0.00-0.03 K/mcL COMPREHENSIVE METABOLIC PANE L Reviewed date:04/23/2025 04:30:46 PM Interpretation: Performing Lab: Notes/Report: Sodium 140 133-145 mmol/L Potassium 4.4 3.5-5.5 mmol/L Chloride 102 96-110 mmol/L CO2 30 21-32 mmol/L Anion Gap 8 3-11 Glucose 207 70-100 mg/dL H BUN 10 5-25 mg/dL Creatinine 1.06 0.50-1.10 mg/dL eGFR 57 >=60 mL/min/1.73m2 L Calculation based on the Chronic Kidney Disease Epidemiology Collaboration (CKD-EPI) equation refit without adjustment for race. BUN/Creatinine Ratio 9.4 Calcium 9.7 8.5-10.5 mg/dL AST (SGOT) 26 10-42 unit/L ALT (SGPT) 36 10-60 unit/L Alkaline Phosphatase 114 42-121 unit/L Total Protein 7.1 6.0-8.0 g/dL Albumin 4.5 3.2-5.0 g/dL Total Bilirubin 1.3 0.0-1.4 mg/dL LIPID PANEL WITH REFLEX TO D IRECT LDL Reviewed date:04/23/2025 04:30:46 PM Interpretation: Performing Lab: Notes/Report: Cholesterol 141 0-200 mg/dL Triglycerides 148 0-150 mg/dL HDL 56 >=40 mg/dL LDL Calculated 55 0-100 mg/dL Estimated LDL is calculated using the Friedewald equation: Total cholesterol - HDL cholesterol - (Triglycerides/5) VLDL Cholesterol Pan 29.6 Non HDL Chol. (LDL+VLDL) 85 <145 mg/dL Chol/HDL Ratio 2.5 0.0-4.4 URINALYSIS WITH REFLEX MICRO SCOPIC Reviewed date:01/28/2025 01:00:47 PM Interpretation: Performing Lab: Notes/Report: Specific [place] Urine 1.024 1.003-1.030 pH, Urine 5.5 5.0-8.0 pH Leukocytes, Urine Trace Negative A Nitrite, Urine Negative Negative Protein, Urine Trace <=Trace mg/dL Glucose, Urine Negative Negative mg/dL Ketones, Urine Trace Negative mg/dL A Urobilinogen, Urine 1.0 0.2-1.0 mg/dL Bilirubin, Urine Negative Negative Blood, Urine Negative Negative RBC, Urine 2.2 0-4 /HPF WBC, Urine 3.9 0-4 /HPF Squamous Epithelial, Urine 62 0-60 /LPF H Bacteria, Urine Negative Negative /HPF Hyaline Casts, Urine 1.6 0-3 /LPF PPC Hemoglobin A1C Reviewed date:04/18/2025 01:40:31 PM Interpretation: Performing Lab: Notes/Report: HGA1C 9.9 Reason For Referral Reason [facility]; Unc ontrolled diabetes Diagnosis 1 Uncontrolled type 2 diabetes mellitus with hyperglycemia (E11.65) Referral Organization [facility] [address] Referring Provider First Name Xiomara Referring Provider Last Name [facility] Referring Provider Speciality Internal edicine Referred Provider Specialty Podiatry General Notes [address] [facility] [address] [place], (p) [phone], (f) [phone] Clinical Notes Marlys Mcfarlane 02:46:33 PM > referral faxed with attachments Referral Priority Routine Reason [facility]; uncontr olled diabetes Diagnosis 1 Uncontrolled type 2 diabetes mellitus with hyperglycemia (E11.65) Referral Organization [facility] [address] Referring Provider First Name Xiomara Referring Provider Last Name Svrcek Referring Provider Speciality Internal edicine Referred Provider Specialty Nutrition General Notes (p) [phone], (f ) [phone] Clinical Notes Laverne Hamlin 10/08 10:14:51 AM >, insurance out of network will refer to alternative place Referral Priority Routine Reason uncontrolled diabete s Diagnosis 1 Type 2 diabetes clint itus with unspecified complications (E11.8) Referral Organization [facility] [address] Referring Provider First Name Xiomara Referring Provider Last Name [facility] Referring Provider Speciality Internal edicine Referred Provider Specialty Unknown General [facility] [address], [address], [place] [address], phone- [phone], fax- [phone] Clinical Notes Laverne Hamlin 10/08 10:31:45 AM >, referral faxed, Ryne Gonzalez 10/12/2024 02:53:48 PM > refaxed to [phone], Ryne Gonzalez 10/23/2024 03:40:30 PM > Scheduled for 11/08 at [address] Vance. Pt aware Referral Priority Routine Reason [facility]; back/subscapula r Diagnosis 1 Subscapular pain, un specified laterality (M25.519) Referral Organization [facility] [address] Referring Provider First Name Xiomara Referring Provider Last Name Svrcek Referring Provider Speciality Internal M edicine Referred Provider Specialty Physical The rapist General Notes [address] [facility] ., (p) [phone], (f) [phone] Clinical Notes Marlys Mcfarlane 09:05:33 AM EST > faxed with notes, pt. has phone # to book appt. Referral Priority Routine Medications Medication SIG (Take, Route, Frequency, Duration) Notes Start Date End Date Status Nystatin 506283 UNIT/GM Powder 1 application Externally Twice a day; Duration: 30 days PRN 06/30/2023 Active Atorvastatin Calcium 20 MG Tablet TAKE 1 TABLET BY MOUTH EVERY DAY; Duration: 90 Active Multi Complete - Capsule as directed Orally Active Clotrimazole-Betamethaso ne 1-0.05 % Cream APPLY DAILY TO SKIN TO AFFECTED AREA TWICE A DAY FOR 7 DAYS; Duration: 30 days Active Mounjaro 7.5 MG/0.5ML Solution Auto-injector Subcutaneous; Duration: 28 Days Active Dexcom G6 Sensor - Miscellaneous one sensor every 10 days subcutaneously for DX E11.8; Duration: 90 days 05/18/2023 Active amLODIPine Besylate 5 MG Tablet TAKE 1 TABLET BY MOUTH EVERY DAY; Duration: 90 Active Dexcom G6 Transmitter - Miscellaneous as directed; Duration: 90 days 03/22/2024 Active Esomeprazole Magnesium 20 MG Capsule Delayed Release TAKE 1 CAPSULE 1/2 TO 1 HOUR BEFORE MORNING MEAL ORALLY ONCE A DAY 90 DAYS; Duration: 90 Active BD Pen Needle Holly 2nd Gen 32G X 4 MM Miscellaneous USE TO INJECT INSULIN AT BEDTIME; Duration: 90 Active Metoprolol Succinate ER 25 MG Tablet Extended Release 24 Hour TAKE 1 TABLET BY MOUTH EVERY DAY FOR 30 DAYS; Duration: 90 Active Lancets - Miscellaneous use 3 times a da y; Duration: 90 days 09/22/2023 Active Valsartan 80 MG Tablet TAKE 1 TABLET BY MOUTH EVERY DAY; Duration: 90 Active Toujeo Max SoloStar 300 UNIT/ML Solution Pen-injector Subcutaneous; Duration: 30 Days Active metFORMIN HCl ER 500 MG Tablet Extended Release 24 Hour TAKE 3 TABLETS BY MOUTH EVERY DAY WITH BREAKFAST 90; Duration: 90 Active Albuterol Sulfate HFA 108 (90 Base) MCG/ACT Aerosol Solution 2 puffs Inhalation every 4 hrs; Duration: 30 days As needed PRN Active Lantus SoloStar 100 UNIT/ML Solution Pen-injector 50 UNITS SUBCUTANEOUS BEDTIME 90 DAYS Subcutaneous once a day; Duration: 90 days Not-Taking Contour Next Test - Strip TEST FASTING BLOOD SUGAR 1 TIME DAILY; Duration: 90 Active Mounjaro 5 MG/0.5ML Solution Auto-injector 0.5 ML Subcutaneous once weekly; Duration: 30 days replaces ozepmic Not-Taking Social History Social History Drugs/Alcohol: Social Info Question Answer Notes Drugs Have you used drugs other than those for medical reasons in the past 12 months? No Additional Details Category Social Info Options Details Drugs/Alcohol: Do you smoke marijuana? De nies Do you drink alcohol? No Section Notes: quite smoking 1984 quite smoking 1984 quite smoking 1984 quite smoking 1984 quite smoking 1984 quite smoking 1984 quite smoking 1984 quite smoking 1984 quite smoking 1985 quite smoking 1985 quite smoking 1985 quite smoking 1985 quite smoking 1985 quite smoking 1985 quite smoking 1985 quite smoking 1985 quite smoking 1985 quite smoking 1985 quite smoking 1984 quite smoking 1984 quite smoking 1985 quite smoking 1984 quite smoking 1984 quite smoking 1984 quite smoking 1984 Problems Problem Type SNOMED Code ICD Code Onset Dates Problem Status W/U Status Risk Notes Problem Disorder due to type 2 diabetes mellitus (246487559) Type 2 diabetes mellitus with unspecified complications (E11.8) Active confirmed Problem Iron deficiency (39711786) Iron deficiency (E61.1) Active confirmed Problem Hyperlipidemia (79346725) Hyperlipidemia, unspecified (E78.5) Active confirmed Problem Hypomagnesemia (217412111) Hypomagnesemia (E83.42) Active confirmed Problem Essential hypertension (56736791) Essential (primary) hypertension (I10) Active confirmed Problem Postoperative hypertension (5577170148117) Postprocedural hypertension (I97.3) Active confirmed Problem Diarrhea (12163756) Diarrhea, unspecified (R19.7) Active confirmed Problem Adult health examination (790590506) Encounter for general adult medical examination without abnormal findings (Z00.00) Active confirmed Problem Hyperlipidaemia (95927136) Hyperlipidemia, unspecified hyperlipidemia type (E78.5) Active confirmed Problem Gastroesophageal reflux disease without esophagitis (775688453) Gastroesophageal reflux disease without esophagitis (K21.9) Active confirmed Problem Type II diabetes mellitus without complication (044294869) Type 2 diabetes mellitus without complication, without long-term current use of insulin (E11.9) Active confirmed Problem Obesity (939918256) Obesity (BMI 35.0-39.9 without comorbidity) (E66.9) Active confirmed Problem Gastroesophageal reflux disease with esophagitis (disorder) (901655691) Gastroesophageal reflux disease with esophagitis without hemorrhage (K21.00) Active confirmed Problem Abdominal pain (97188036) Abdominal pain of unknown etiology (R10.9) Active confirmed Problem Hyperglycemia due to type 2 diabetes mellitus (909712892549272) Uncontrolled type 2 diabetes mellitus with hyperglycemia (E11.65) Active confirmed Problem Hyperlipidemia (79423724) Hyperlipidemia, mild (E78.5) Active confirmed Problem Endocrine/metabolic screening (604459699) Screening for endocrine disorder (Z13.29) Active confirmed Problem Type II diabetes mellitus without complication (420302964) Type 2 diabetes mellitus with hemoglobin A1c goal of 7.0%-8.0% (E11.9) Active confirmed Problem Elevated fasting lipid profile (140127606967) Elevated lipids (E78.5) Active confirmed Problem Diabetes mellitus type 2 in nonobese (773776104) Diabetes mellitus type 2 in nonobese (E11.9) Active confirmed Problem Cramp in lower limb (764448816) Leg cramp (R25.2) Active confirmed Vital Signs Heart Rate 78 /min 04/18/2025 Oximetry 98 % 04/18/2025 Blood pressure diastolic 74 mm Hg 04/18/2025 Height 61 in 04/18/2025 Blood pressure systolic 142 mm Hg 04/18/2025 Weight 157.5 lbs 04/18/2025 BMI 29.76 kg/m2 04/18/2025 Encounters Encounter Location Date Provider Diagnosis [facility] [address] [address] 05/23/2024 Xiomara Svrcek Respiratory syncytia l virus (RSV) as cause of acute bronchitis J20.5 ; Pneumonia due to infectious organism, unspecified laterality, unspecified part of lung J18.9 ; Type 2 diabetes mellitus with unspecified complications E11.8 ; Skin rash R21 and Essential (primary) hypertension I10 [facility] [address] [address] 07/31/2024 Xiomara Svrcek Type 2 diabetes clint itus with unspecified complications E11.8 ; Essential (primary) hypertension I10 ; Hyperlipidemia, unspecified hyperlipidemia type E78.5 and Muscle cramps R25.2 [facility] [address] [address] 10/02/2024 Xiomara Svrcek Type 2 diabetes clint itus with unspecified complications E11.8 ; Essential (primary) hypertension I10 ; Hyperlipidemia, unspecified hyperlipidemia type E78.5 and Muscle cramps R25.2 [facility] [address] [address] 11/07/2024 Xiomara Svrcek Cough R05.9 ; Acute bronchitis, unspecified organism J20.9 and Essential (primary) hypertension I10 [facility] [address] [address] 11/20/2024 Xiomara Svrcek Type 2 diabetes clint itus with unspecified complications E11.8 ; Essential (primary) hypertension I10 ; Hyperlipidemia, unspecified hyperlipidemia type E78.5 and Subacute cough R05.2 [facility] [address] [address] 01/24/2025 Xiomara Svrcek Type 2 diabetes clint itus with unspecified complications E11.8 ; Essential (primary) hypertension I10 ; Hyperlipidemia, unspecified hyperlipidemia type E78.5 ; Rash R21 and Burning with urination R30.0 [facility] [address] [address] 04/18/2025 Xiomara Svrcek Type 2 diabetes clint itus with unspecified complications E11.8 ; Essential (primary) hypertension I10 ; Hyperlipidemia, unspecified hyperlipidemia type E78.5 and Subscapular pain, unspecified laterality M25.[address] [facility] [address] [place] [address] 06/04/2024 Xiomara Svrcek [facility] [address] [place] [address] 06/04/2024 Xiomara Svrcek [facility] [address] [place] [address] 07/19/2024 TALAL BOWMAN [facility] [address] 07/31/2024 TALAL BOWMAN Screening for endocr ine disorder Z13.29 ; Elevated lipids E78.5 ; Diabetes mellitus type 2 in nonobese E11.9 and Leg cramp R25.[address] [facility] [address] [place], [place] 09/04/2024 Xiomara Svrcek [facility] [address] 10/02/2024 Xiomara Svrcek [facility] [address] [place] [address] 10/08/2024 Xiomara Svrcek [facility] [address] 11/07/2024 Xiomara Svrcek [facility] [address] 11/07/2024 Xiomara Svrcek [facility] [address] 04/23/2025 Xiomara Svrcek Kidney dysfunction N 28.9 Assessments Encounter Date Diagnosis (ICD Code) Assessment Notes Treatment Notes Treatment Clinical Notes Section Notes 05/23/2024 Pneumonia due to infectious organism, unspecified [...] Dictation was accomplished with the use of [employer] voice recognition software, prone to medical misidentifications [...] Dictation was accomplished with the use of [employer] voice recognition software, prone to medical misidentifications [...] Dictation was accomplished with the use of [employer] voice recognition software, prone to medical misidentifications [...] Dictation was accomplished with the use of [employer] voice recognition software, prone to medical misidentifications [...] Discussed dietary modifications in detail. Rfer to hospital cleaner. Follow-up in 6 weeks for repeat A1c. [...] Dictation was accomplished with the use of [employer] voice recognition software, prone to medical misidentifications [...] Discussed dietary modifications in detail. Rfer to hospital cleaner. Follow-up in 6 weeks for repeat A1c. [...] Dictation was accomplished with the use of [employer] voice recognition software, prone to medical misidentifications [...] next visit it any questions/concerns arise. 11/07/2024 Cough (ICD-10 - R05.9) #Cough/Acute bronchitis. [...] Dictation was accomplished with the use of [employer] voice recognition software, prone to medical misidentifications [...] Dictation was accomplished with the use of [employer] voice recognition software, prone to medical misidentifications [...] Dictation was accomplished with the use of [employer] voice recognition software, prone to medical misidentifications [...] Dictation was accomplished with the use of [employer] voice recognition software, prone to medical misidentifications [...] She will also be meeting with a hospital cleaner and a student development specialist in the next month. Will plan to follow-up with me in 3 months. She is up-to-date on her eye exams. #Hypertension. BP at goal. On amlodipine, valsartan and metoprolol. Discussed importance of healthy diet and regular exercise. #Hyperlipidemia. Labs recently ordered by endo, will request. plan to f/u with me in 3 months. WIll be meeting with a student development specialist. #Rash- intermittent to gluteal fold area. Refilled. [...] Dictation was accomplished with the use of [employer] voice recognition software, prone to medical misidentifications [...] She will also be meeting with a hospital cleaner and a student development specialist in the next month. Will plan to follow-up with me in 3 months. She is up-to-date on her eye exams. #Hypertension. BP at goal. On amlodipine, valsartan and metoprolol. Discussed importance of healthy diet and regular exercise. #Hyperlipidemia. Labs recently ordered by endo, will request. plan to f/u with me in 3 months. WIll be meeting with a student development specialist. #Rash- intermittent to gluteal fold area. Refilled. [...] Dictation was accomplished with the use of Dragon voice recognition software, prone to medical misidentifications and grammatical errors. This is unintentional and the practitioner does try to identify and correct these, but some could still be present. Please do not hesitate to contact practitioner for clarification. All questions answered to patients satisfaction. Patient verbalized understanding of diagnosis and treatments explained. To call sooner prior to next visit it any questions/concerns arise. 04/18/2025 Type 2 diabetes mellitus with unspecified complications (ICD-10 - E11.8) #Type 2 diabetes. Now following with endocrinology. They just increased her Mounjaro to 10 mg. She is tolerating well. Unfortunately her diabetes has been difficult to control despite multiple medications. Endocrinology is doing further workup. She does have follow-up with them again on May 08. Up-to-date on routine screenings. Continue to work on healthy diet and regular exercise. #Hypertension. BP at goal. On amlodipine, valsartan and metoprolol. Discussed importance of healthy diet and regular exercise. #Hyperlipidemia. Will get updated labs and plan to f/u with me in 3 months. Working with a student development specialist. #Subscapular pain. Left-sided suspect spasm. Reproducible on exam. Will refer to physical therapy. Discussed Salonpas with lidocaine patches, heat and gentle stretching. Follow-up if no improvement or with any new or worsening symptoms. Case discussed with collaborating physician Robert Bowman who reviewed the assessment and plan. Chart, medications, labs, vital signs reviewed. Dictation was accomplished with the use of [employer] voice recognition software, prone to medical misidentifications and grammatical errors. This is unintentional and the practitioner does try to identify and correct these, but some could still be present. Please do not hesitate to contact practitioner for clarification. All questions answered to patients satisfaction. Patient verbalized understanding of diagnosis and treatments explained. To call sooner prior to next visit it any questions/concerns arise. 04/18/2025 Essential (primary) hypertension (ICD-10 - I10) #Type 2 diabetes. Now following with endocrinology. They just increased her Mounjaro to 10 mg. She is tolerating well. Unfortunately her diabetes has been difficult to control despite multiple medications. Endocrinology is doing further workup. She does have follow-up with them again on May 08. Up-to-date on routine screenings. Continue to work on healthy diet and regular exercise. #Hypertension. BP at goal. On amlodipine, valsartan and metoprolol. Discussed importance of healthy diet and regular exercise. #Hyperlipidemia. Will get updated labs and plan to f/u with me in 3 months. Working with a student development specialist. #Subscapular pain. Left-sided suspect spasm. Reproducible on exam. Will refer to physical therapy. Discussed Salonpas with lidocaine patches, heat and gentle stretching. Follow-up if no improvement or with any new or worsening symptoms. Case discussed with collaborating physician Robert Bowman who reviewed the assessment and plan. Chart, medications, labs, vital signs reviewed. Dictation was accomplished with the use of [employer] voice recognition software, prone to medical misidentifications and grammatical errors. This is unintentional and the practitioner does try to identify and correct these, but some could still be present. Please do not hesitate to contact practitioner for clarification. All questions answered to patients satisfaction. Patient verbalized understanding of diagnosis and treatments explained. To call sooner prior to next visit it any questions/concerns arise. 04/23/2025 Kidney dysfunction (ICD-10 - N28.9) 04/18/2025 Hyperlipidemia, unspecified hyperlipidemia type (ICD-10 - E78.5) #Type 2 diabetes. Now following with endocrinology. They just increased her Mounjaro to 10 mg. She is tolerating well. Unfortunately her diabetes has been difficult to control despite multiple medications. Endocrinology is doing further workup. She does have follow-up with them again on May 08. Up-to-date on routine screenings. Continue to work on healthy diet and regular exercise. #Hypertension. BP at goal. On amlodipine, valsartan and metoprolol. Discussed importance of healthy diet and regular exercise. #Hyperlipidemia. Will get updated labs and plan to f/u with me in 3 months. Working with a student development specialist. #Subscapular pain. Left-sided suspect spasm. Reproducible on exam. Will refer to physical therapy. Discussed Salonpas with lidocaine patches, heat and gentle stretching. Follow-up if no improvement or with any new or worsening symptoms. Case discussed with collaborating physician Robert Bowman who reviewed the assessment and plan. Chart, medications, labs, vital signs reviewed. 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 Will plan to follow-up with me in 3 months. She is up-to-date on her eye exams. #Hypertension. BP at goal. On amlodipine, valsartan and metoprolol. Discussed importance of healthy diet and regular exercise. #Hyperlipidemia. Labs recently ordered by endo, will request. plan to f/u with me in 3 months. WIll be meeting with a student development specialist. #Rash- intermittent to gluteal fold area. Refilled. [...] Dictation was accomplished with the use of Crypt[employer]Se[employer] voice recognition software, prone to medical misidentifications [...] Dictation was accomplished with the use of [employer] voice recognition software, prone to medical misidentifications [...] Dictation was accomplished with the use of [employer] voice recognition software, prone to medical misidentifications [...] Dictation was accomplished with the use of [employer] voice recognition software, prone to medical misidentifications [...] Discussed dietary modifications in detail. Rfer to hospital cleaner. Follow-up in 6 weeks for repeat A1c. [...] bedtime. Case discussed with collaborating physician Robert Bwoman who reviewed the assessment and plan. Chart, medications, labs, vital signs reviewed. Dictation was accomplished with the use of [employer] voice recognition software, prone to medical misidentifications [...] Dictation was accomplished with the use of [employer] voice recognition software, prone to medical misidentifications [...] next visit it any questions/concerns arise. 07/31/2024 Muscle cramps (ICD-10 - R25.2) #Type [...] Dictation was accomplished with the use of [employer] voice recognition software, prone to medical misidentifications [...] Discussed dietary modifications in detail. Rfer to hospital cleaner. Follow-up in 6 weeks for repeat A1c. [...] Dictation was accomplished with the use of [employer] voice recognition software, prone to medical misidentifications [...] Dictation was accomplished with the use of [employer] voice recognition software, prone to medical misidentifications [...] Dictation was accomplished with the use of [employer] voice recognition software, prone to medical misidentifications and grammatical errors. This is unintentional and the practitioner does try to identify and correct these, but some could still be present. Please do not hesitate to contact practitioner for clarification. All questions answered to patients satisfaction. Patient verbalized understanding of diagnosis and treatments explained. To call sooner prior to next visit it any questions/concerns arise. 04/18/2025 Subscapular pain, unspecified laterality (ICD-10 - M25.519) #Type 2 diabetes. Now following with endocrinology. They just increased her Mounjaro to 10 mg. She is tolerating well. Unfortunately her diabetes has been difficult to control despite multiple medications. Endocrinology is doing further workup. She does have follow-up with them again on May 08. Up-to-date on routine screenings. Continue to work on healthy diet and regular exercise. #Hypertension. BP at goal. On amlodipine, valsartan and metoprolol. Discussed importance of healthy diet and regular exercise. #Hyperlipidemia. Will get updated labs and plan to f/u with me in 3 months. Working with a student development specialist. #Subscapular pain. Left-sided suspect spasm. Reproducible on exam. Will refer to physical therapy. Discussed Salonpas with lidocaine patches, heat and gentle stretching. Follow-up if no improvement or with any new or worsening symptoms. Case discussed with collaborating physician Robert Bowman who reviewed the assessment and plan. Chart, medications, labs, vital signs reviewed. 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 Will plan to follow-up with me in 3 months. She is up-to-date on her eye exams. #Hypertension. BP at goal. On amlodipine, valsartan and metoprolol. Discussed importance of healthy diet and regular exercise. #Hyperlipidemia. Labs recently ordered by lynne, will request. plan to f/u with me in 3 months. WIll be meeting with a student development specialist. #Rash- intermittent to gluteal fold area. Refilled. [...] Dictation was accomplished with the use of [employer]Se[employer] voice recognition software, prone to medical misidentifications [...] Dictation was accomplished with the use of [employer] voice recognition software, prone to medical misidentifications [...] arise. 07/31/2024 Leg cramp (ICD-10 - R25.2) 01/24/2025 Burning with urination (ICD-10 - R30.0) [...] She will also be meeting with a hospital cleaner and a student development specialist in the next month. Will plan to follow-up with me in 3 months. She is up-to-date on her eye exams. #Hypertension. BP at goal. On amlodipine, valsartan and metoprolol. Discussed importance of healthy diet and regular exercise. #Hyperlipidemia. Labs recently ordered by lynne, will request. plan to f/u with me in 3 months. WIll be meeting with a student development specialist. #Rash- intermittent to gluteal fold area. Refilled. [...] Dictation was accomplished with the use of [employer] voice recognition software, prone to medical misidentifications [...] 01/24/2025 UA WITH CULTURE IF INDICATED 01/24/2025 BASIC METABOLIC PANEL (BMP) 04/23/2025 MAGNESIUM 07/31/2024 LIPID PANEL, STANDARD 07/31/2024 LIPID PANEL, STANDARD 04/18/2025 LIPID PANEL, STANDARD 06/30/2023 CARROLL/SHIG/CAMPY, CULTURE AND SHIGA TOXIN, EIA W/RFL TO E.COLI, CULTURE 07/14/2022 IRON, TIBC AND FERRITIN PANEL 09/28/2023 IRON, TIBC AND FERRITIN PANEL 06/30/2023 COMPREHENSIVE METABOLIC PANEL 04/18/2025 COMPREHENSIVE METABOLIC PANEL 07/31/2024 BASIC METABOLIC PANEL 06/30/2023 MAGNESIUM 09/28/2023 MAGNESIUM 11/22/2023 CBC (INCLUDES DIFF/PLT) 11/22/2023 CBC (INCLUDES DIFF/PLT) 07/31/2024 URINALYSIS REFLEX 11/22/2023 HEMOGLOBIN A1c 07/31/2024 VITAMIN B12 09/28/2023 COMPLETE URINALYSIS 08/31/2022 COMPLETE URINALYSIS 12/21/2022 COMPLETE URINALYSIS 02/01/2023 US Abdomen 09/28/2022 US Duplex Venous Study LT 04/19/2023 MICROALBUMIN CREATININE URINE RATIO 04/08 PPC Rapid Covid/Strep/Flu/RSV 11/07/2024 PPC Hemoglobin A1C 11/20/2024 Next Appt Details Provider Name:Xiomara Dianne, 0 07/25/2025 02:00:00 PM, [address] [facility] [address], [place], [address], Insurance Providers Payer Name Payer Address Payer Phone Subscriber Number Group Number Insured Name Patient Relationship to Insured Coverage Start Date Coverage End Date [facility] [address] [place] [address] [id number] LEE MORAN Self - patient is the insured 4 Medical (General) History Medical History History ICD Code esophageal reflux History of breast cancer Z85.3 Essential (primary) hypertension I10 Hyperlipidemia, mild E78.5 Type 2 diabetes mellitus with complicati ons E11.8 Hyperlipidemia, mild E78.5 Asthma J45.909 Surgical History Surgery Date(Month/Year) tubal ligation breast cancer Bilateral mastectomy
--- OUTSIDE RECORDS SUMMARY | 2025-05-08 14:45 | XMS_ITS | Clinical Summary ---
Author Organization [address] [place] [address] Address [address] [place] [address] Phone Care Team Providers Care Deblocker Name Role Phone Fei Bowman MD Primary Care Provider Allergies Active Allergy Reactions Criticality Noted Date [...] mononeuropathy, without long-term current use of insulin 08/19/2017 Breast cancer 01/05/2016 Overview (02/23/2024): Bilateral mastectomy. Follows with Dr. Rey. 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 HTN (hypertension), benign 02/12/2009 Encounters Date Type Department Care Team Description 05/06/2025 8:50 AM EST Lab Draw Station - [address] [place] [phone] Kidney trouble 04/23/2025 7:35 AM EST Lab Draw Station - [address] [place] [address] Kidney trouble (Primary Dx); Diabetic complication (CMS/HCC V24, CMS/HCC V28); Hyperlipemia from Last 3 Months Immunizations Immunization Administration Dates Next Due PPD [...] HISTORICAL TUBAL LIGATION OTHER SURGICAL HISTORY PROCEDURE: FL REPOSITIONING IO LENS PROSTHESIS REQ INC SPX; COMMENT: left eye ESOPHAGOGASTRODUODENOSCOPY 2006 PROCEDURE: FL ESOPHAGOGASTRODUODENOSCOPY TRANSORAL DIAGNOSTIC; COMMENT: duodenal adenoma. ESOPHAGOGASTRODUODENOSCOPY 07/14 PROCEDURE: FL ESOPHAGOGASTRODUODENOSCOPY TRANSORAL DIAGNOSTIC; COMMENT: normal; repeat in 07/2012 ESOPHAGOGASTRODUODENOSCOPY 08.20.13 PROCEDURE: FL EGD TRANSORAL BIOPSY SINGLE/MULTIPLE; COMMENT: normal, with nl duodenal biopsies COLONOSCOPY 09/14 [place] PROCEDURE: FL COLONOSCOPY STOMA DX INCLUDING COLLJ SPEC SPX; COMMENT: has polyps repeat in 2011; diverticulosis and hemorrhoids COLONOSCOPY 10/02/10 PROCEDURE: FL COLONOSCOPY STOMA DX INCLUDING COLLJ SPEC SPX; COMMENT: adenomas, tics and hemorrhoids; repeat in three years COLONOSCOPY 08/20/13 PROCEDURE: FL COLONOSCOPY STOMA W/RMVL JAMIE POLYP/OTH LES SNARE; COMMENT: adenoma, tics and hemorrhoids; repeat in 5 yrs BREAST BIOPSY PROCEDURE: BX BREAST; PERC NEEDLE CORE W/IMAG GUID; COMMENT: left side breast ca in 2009 BREAST LUMPECTOMY PROCEDURE: HISTORICAL BREAST LUMPECTOMY; COMMENT: small low grade DCIS left breast ( Dr. Nance CATARACT EXTRACTION 2018 PROCEDURE: HISTORICAL CATARACT REMOVAL Medical History Medical [...] t neoplasm of breast DX:Personal history of guido diaz neoplasm of breast; COMMENT: left side breast [...] Status Comments Father ?internal bleed Mother with [place] at age 27 Sister dx'd age 60 [...] on file Sexual Orientation Not on file Last Filed Vital Signs [...] 07/26/2024 Diabetes: Annual Urine Albumin-Creatinine Ratio (uACR) 05/06/2026 05/06/2025, 09/19/2024, 03/02/2021 Diabetes: Annual GFR (Glomerular Filtration Rate) 05/06/2026 05/06/2025, 04/23/2025, 09/19/2024, Additional history exists Hypertension/CHF/CAD Annual BMP Blood Test 05/06/2026 05/06/2025, 04/23/2025, 09/19/2024, Additional history exists DTaP,Tdap,and Td Vaccines (3 - Td or Tdap) 09/01/2028 09/01/2018, 08/16/2007 Colorectal Cancer Screening: Colonoscopy 07/26/2029 07/26/2024, 01/15/2019 Cholesterol Screening (Lipid Panel) 04/23/2030 04/23/2025, 09/19/2024, 03/02/2021 Osteoporosis Screening (Bone Density Screening) [...] Routine 05/06/2025 8:48 AM EST Kidney trouble LIPID PANEL WITH REFLEX TO DIRECT LDL Routine 04/23/2025 7:36 AM EST Diabetic complication ([facility] V24, [facility] V28) Hyperlipemia COMPREHENSIVE METABOLIC PANEL Routine 04/23/2025 7:36 AM EST Diabetic complication ([facility]/HCC V24, [facility] V28) Hyperlipemia HEMOGLOBIN A1C Routine 09/19/2024 7:46 AM EDT Screening for thyroid disorder Hyperlipidemia Diabetes mellitus ([facility]/HCC V24, CMS/HCC V28) Cramp of limb COLONOSCOPY Routine 07/26/2024 9:43 AM EDT History of colon polyps DXA BONE DENSITY STUDY 1+ SITS AXIAL SKEL Routine 01/04/2022 11:39 AM EDT Type 2 diabetes mellitus with diabetic mononeuropathy ([facility] V24, CMS/HCC V28) HEPATITIS C SCREENING Routine 11/08/2012 from Last 3 Months or Most Recently Relevant to Health Maintenance Results * (ABNORMAL) Microalbumin creatinine urine ratio (05/06/2025 8:55 AM EST) Creatinine, Urine 181.0 mg/dL 05/06/2025 11:35 AM EST [facility] Microalb, Ur 98.0(H) 0.0 - 29.0 mg/L 05/06/2025 11:35 AM [facility] Microalb/Creat Ratio 54(H) <30 mg/g creat 05/06/2025 11:35 AM [facility] Urine Urine specimen obtained by clean catch procedure / Unknown Non-blood Collection / Unknown 05/06/2025 8:55 AM EST 05/06/2025 10:22 AM EST Xiomara VALDIVIA LAB URINE ORDERABLES Final Resul t [facility] [address] [place] [address], * (ABNORMAL) Basic metabolic panel (05/06/2025 8:48 AM EST) Sodium 139 133 - 145 mmol/L 05/06/2025 11:15 AM [facility] Potassium 4.3 3.5 - 5.5 mmol/L 05/06/2025 11:15 AM [facility] Chloride 100 96 - 110 mmol/L 05/06/2025 11:15 AM [facility] CO2 27 21 - 32 mmol/L 05/06/2025 11:15 AM [facility] Anion Gap 12(H) 3 - 11 05/06/2025 11:15 AM [facility] Glucose 163(H) 70 - 100 mg/dL 05/06/2025 11:15 AM [facility] BUN 10 5 - 25 mg/dL 05/06/2025 11:15 AM [facility] Creatinine 0.92 0.50 - 1.10 mg/dL 05/06/2025 11:15 AM [facility] eGFR 67 >=60 mL/min/1. 73m2 05/06/2025 11:15 AM [facility] Comment:Calculation based on the Chronic Kidney Disease Epidemiology Collaboration (CKD-EPI) equation refit without adjustment for race. BUN/Creatinine Ratio 10.9 05/06/2025 11:[address] [facility] Calcium 9.3 8.5 - 10.5 mg/dL 05/06/2025 11:15 AM [facility] Blood Venous blood specimen / Unknown Venipuncture / Unknown 05/06/2025 8:48 AM EST 05/06/2025 10:22 AM EST us Xiomara VALDIVIA LAB BLOOD ORDERABLES Final Resul t [facility] [address] [place] [address], [place] [phone] * Lipid panel with reflex to direct LDL (04/23/2025 7:36 AM EST) Cholesterol 141 0 - 200 mg/dL 04/23/2025 10:15 AM [facility] Triglycerides 148 0 - 150 mg/dL 04/23/2025 10:15 AM [facility] HDL 56 >=40 mg/dL 04/23/2025 10:15 AM [facility] LDL Calculated 55 0 - 100 mg/dL 04/23/2025 10:15 AM [facility] Comment:Estimated LDL is coleen culated using the Friedewald equation: Total cholesterol - HDL cholesterol - (Triglycerides/5) VLDL Cholesterol Coleen 29.6 mg/dL 04/23/2025 10:15 AM [facility] Non HDL Chol. (LDL+VLDL) 85 <145 mg/dL 04/23/2025 10:15 AM [facility] Chol/HDL Ratio 2.5 0.0 - 4.4 04/23/2025 10:15 AM [facility] Blood Venous blood specimen / Unknown Venipuncture / Unknown 04/23/2025 7:36 AM EST 04/23/2025 9:22 AM EST Xiomara VALDIVIA LAB BLOOD ORDERABLES Final Resul t [facility] [address] [place] [address], * (ABNORMAL) Comprehensive metabolic panel (04/23/2025 7:36 AM EST) Sodium 140 133 - 145 mmol/L 04/23/2025 10:15 AM [facility] Potassium 4.4 3.5 - 5.5 mmol/L 04/23/2025 10:15 AM [facility] Chloride 102 96 - 110 mmol/L 04/23/2025 10:15 AM [facility] CO2 30 21 - 32 mmol/L 04/23/2025 10:15 AM [facility] Anion Gap 8 3 - 11 04/23/2025 10:15 AM [facility] Glucose 207(H) 70 - 100 mg/dL 04/23/2025 10:15 AM [facility] BUN 10 5 - 25 mg/dL 04/23/2025 10:15 AM [facility] Creatinine 1.06 0.50 - 1.10 mg/dL 04/23/2025 10:15 AM [facility] eGFR 57(L) >=60 mL/min/1. 73m2 04/23/2025 10:15 AM [facility] Comment:Calculation based on the Chronic Kidney Disease Epidemiology Collaboration (CKD-EPI) equation refit without adjustment for race. BUN/Creatinine Ratio 9.4 04/23/2025 10:15 AM [facility] Calcium 9.7 8.5 - 10.5 mg/dL 04/23/2025 10:15 AM [facility] AST (SGOT) 26 10 - 42 unit/L 04/23/2025 10:15 AM [facility] ALT (SGPT) 36 10 - 60 unit/L 04/23/2025 10:15 AM [facility] Alkaline Phosphatase 114 42 - 121 unit/L 04/23/2025 10:15 AM [facility] Total Protein 7.1 6.0 - 8.0 g/dL 04/23/2025 10:15 AM [facility] Albumin 4.5 3.2 - 5.0 g/dL 04/23/2025 10:15 AM [facility] Total Bilirubin 1.3 0.0 - 1.4 mg/dL 04/23/2025 10:15 AM [facility] Blood Venous blood specimen / Unknown Venipuncture / Unknown 04/23/2025 7:36 AM EST 04/23/2025 9:22 AM EST Xiomara VALDIVIA LAB BLOOD ORDERABLES Final Resul t [facility] [address] [place] [address], * (ABNORMAL) Hemoglobin A1c (09/19/2024 7:46 AM EDT) Hemoglobin A1C 10.2(H) <6.5 % LAB CHEMISTRY METHOD 09/19/2024 10:[address] [facility] Mean Bld Glu Estim. 246 mg/dL LAB CHEMISTRY METHOD 09/19/2024 10:[address] [facility] Blood Venous blood specimen / Unknown Venipuncture / Unknown 09/19/2024 7:46 AM EDT 09/19/2024 7:57 AM EDT us Fei Bowman MD LAB BLOOD ORDERABLES Final Resul t [facility] [address] [place] [address], * COLONOSCOPY Anesthesia - MAC; [facility] ENDOSCOPY (07/26/2024 9:43 AM EDT) Anatomical Region Laterality Modality Endoscopy 07/26/2024 9:19 AM EDT Impressions 07/26/2024 9:44 AM EDT - One 8 mm polyp in the ascending colon, removed with a cold snare. Resected and retrieved. - One 8 mm polyp in the transverse colon, removed with a cold snare. Resected and retrieved. Clips were placed. Clip balance sheet analyst: [employer]. - Diverticulosis in the entire examined colon. - Internal hemorrhoids. - The examination was otherwise normal. Recommendation: - Await pathology results. - Repeat colonoscopy is recommended for surveillance. The colonoscopy date will be determined after pathology results from today's exam become available for review. Narrative 07/26/2024 9:44 AM EDT [facility] GI Patient Name: Alexandria Moran Procedure [...] verified by the physician, the nurse, the return clerk and the exhibit technician in the pre-procedure area in the [...] two hemostatic clips were successfully placed. Clip balance sheet analyst: [employer]. There was no bleeding at the end of the procedure. Many small and large-mouthed diverticula were found in the entire colon. Internal hemorrhoids were found during retroflexion. The hemorrhoids were Grade I (internal hemorrhoids that do not prolapse). The exam was otherwise without abnormality. Procedure Code(s): --- Professional --- 63578, Colonoscopy, flexible; with removal of tumor(s), polyp(s), or other lesion(s) by snare technique Diagnosis Code(s): --- Professional --- D12.2, Benign neoplasm of ascending colon D12.3, Benign neoplasm of transverse colon (hepatic flexure or splenic flexure) CPT copyright 2020 [employer]. All rights reserved. The codes documented in this report are preliminary and upon head worker review may be revised to meet current compliance requirements. Ne Garcia MD 07/26/2024 9:44:23 AM This report has been signed electronically.Ne Garcia MD Number of Addenda: 0 Note Initiated On: 07/26/2024 9:19 AM Scope Withdrawal Time: 0 hours 15 minutes 36 seconds Scope In: 9:23:50 AM Scope Out: 9:42:31 AM Endoscopy Department at [facility] - [address] [place] [phone] Procedure Note Ne Garcia MD - 07/26/2024 [facility] Patient Name: Alexandria Moran Procedure [...] the physician, the nurse, theanesthetist and the exhibit technician in the pre-procedure area in the [...] two hemostatic clips were successfully placed. Clip balance sheet analyst: [employer]. There was nobleeding at the end of the procedure. Many small and large-mouthed diverticula were foundin the entire colon. Internal hemorrhoids were found duringretroflexion. The hemorrhoids were Grade I (internal hemorrhoids that do not prolapse). The exam was otherwise without abnormality. Procedure Code(s): --- Professional --- 12246, Colonoscopy, flexible; with removal of tumor(s), polyp(s), or other lesion(s) by snare technique Diagnosis Code(s): --- Professional --- D12.2, Benign neoplasm of ascending colon D12.3, Benign neoplasm of transverse colon (hepatic flexure or splenic flexure) CPT copyright 2020 [employer]. All rights reserved. The codes documented in this report are preliminary and upon head worker reviewmay be revised to meet current compliance requirements. Ne Garcia MD 07/26/2024 9:44:23 AM This report has been signed electronically.Ne Garcia MD Number of Addenda: 0 Note Initiated On: 07/26/2024 9:19 AM Scope Withdrawal Time: 0 hours 15 minutes 36 seconds Scope In: 9:23:50 AM Scope Out: 9:42:31 AM Endoscopy Department at [facility] - [address] [place] [phone] IMPRESSION: - One 8 mm polyp in the ascending colon, removed with a cold snare. Resected and retrieved. - One 8 mm polyp in the transverse colon, removedwith a cold snare. Resected and retrieved. Clips were placed. Clip balance sheet analyst: [employer]. - Diverticulosis in the entire examined colon. [...] (World Health Organization Fracture Risk Assessment) The [facility] Department of Internal Medicine recommends using [...] alternative screening schedule based on hernandez Gomez., [facility] May 27, 2011 for patients [...] years. (World HealthOrganization Fracture Risk Assessment) The [facility] Department of Internal Medicine recommendsusing National [...] alternative screening schedule based on [facility]nandez Gomez., [facility] for patients with osteopenia [...] Final Result * Hepatitis C Screening (11/08/2012) [facility] Hepatitis C Screening Abstracted Historical Provider HEALTH MAINTENANCE Final Result from Last 3 Months or Most Recently Relevant to Health Maintenance Insurance MEDICARE [facility] Advance Directives Documents on File Type Date Recorded Patient Pro Shop Attendant Expl anation Health Care Decision (hx) 11/17/2015 [...] (hx) 11/17/2015 AD MARIN DIRECTIVE Care Teams Deblocker Relationship Specialty Start Date End Date Fei Bowman MD [address] [place] [id number] PCP - General Internal Medicine 07/26/24
--- OUTSIDE RECORDS SUMMARY | 2025-05-08 14:45 | XMS_ITS | Clinical Summary ---
Author Organization [facility] Prior to 10/06/[address] [place] [id number] Care Team Providers Care Cylinder Checker Name Role Phone Marina Jesus MD Primary Care Provider [phone] Allergies Active Allergy Reactions Criticality Noted Date [...] Osteoporosis Screening (DEXA Scan) 09/08/2019 COVID-19 Vaccine (2024-2 6 season) 2025 03/29/2021, 09/03/2020, 08/13/2020 Influenza Vaccine (#1) 2025 RSV Adult > 60+ Yrs or (1 - 1-dose 75+ series) 2029 Hepatitis B Vaccines Aged Out No long er eligible based on patient's age to complete this topic RSV Ped < 20 months Aged Out No longe r eligible based on patient's age to complete this topic Care Teams Cylinder Checker Relationship Specialty Start Date End Date Marina Jesus MD PCP - General Internal Medicine 03/28/17
== END 2025-05-08 13:48 | disposition home or self-care (01) ==
LOC: HO.ENCR 13:18
PROVIDERS: PCP Physician Assistant; Visit Provider Internal Medicine
DX: E11.65 Type 2 diabetes mellitus with hyperglycemia (principal); Z79.4 Long term (current) use of insulin

== ENCOUNTER → 2025-05-08 13:17 | Outpatient (BNVA) | payer MEDICARE, BC, SELFPAY | PROVIDERS: PCP Physician Assistant; Visit Provider Internal Medicine | DX: E11.65 Type 2 diabetes mellitus with hyperglycemia (principal); Z79.4 Long term (current) use of insulin; Z79.85 Long-term (current) use of injectable non-insulin antidiabetic drugs | CPT/HCPCS: 82947; 99212 ==